=== PATIENT | male | born 1960 | race Caucasian/White ===

== ENCOUNTER 2016-10-24 11:17 | Inpatient (IN) | payer OTHER ==
[~2016-10-24] VITALS: Ht 180.3 cm; Wt 104.5 kg
[2016-10-24 12:00] VITALS: BP 130/71
[2016-10-24] MEDS ORDERED: 1/2 NS IV SOLUTION 1,000 ML IV PRN (12:19)
[2016-10-24] MEDS ORDERED: ONDANSETRON 4 MG/2 ML (SDV) Z0FRAN IV PRN (12:30)
[2016-10-24] MEDS ORDERED: D5 1/2 NS 1000 ML IV SOLUTION 1,000 ML IV PRN (12:30)
[2016-10-24] MEDS ORDERED: ANTACID SUSP 30 ML UDC (MYLANTA) PO PRN (12:30)
[2016-10-24] MEDS ORDERED: LORazepam INJ 2 MG/ML (ATIVAN) VIAL IM/IV PRN (12:30)
[2016-10-24] MEDS ORDERED: LORazepam 1 MG (ATIVAN) TAB PO PRN ×2 (12:30→16:15)
[2016-10-24] MEDS ORDERED: SENNA W/DOCUSATE (SENOKOT S) TABLET PO PRN (12:30)
[2016-10-24] MEDS ORDERED: ONDANSETRON 4 MG (ZOFRAN) ORAL DISSOLVE TAB SL PRN (12:30)
[2016-10-24] MEDS ORDERED: LORazepam INJ 2 MG/ML (ATIVAN) VIAL IV PRN (12:30)
--- NOTE | 2016-10-24 12:41 | History & Physical-Hospitalist ---
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 At this current time patient appears to be slightly intoxicated will check alcohol level to confirm my suspicion but denies any significant pain or any other issues. He reports that he responds to the vitamin IV bag well so I did order that. 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) Surgeries HX Surgeries: No Respiratory Hx Respiratory Disorders: No Cardiovascular Hx Cardiovascular Disorders: No Neurological Hx Neurological Disorders: No Genitourinary Hx Genitourinary Disorders: No Gastrointestinal Hx Gastrointestinal Disorders: No Musculoskeletal Hx Musculoskeletal Disorders: No Endocrine Hx Endocrine Disorders: No HEENT HX ENT Disorders: No Cancer Hx Cancer: No Psychosocial Hx Psychiatric Problems: No Review of Systems Constitutional: see HPI dizziness malaise EENTM: no symptoms reported Respiratory: no symptoms reported Cardiovascular: no symptoms reported Gastrointestinal: no symptoms reported Genitourinary: no symptoms reported Musculoskeletal: no symptoms reported Skin: no symptoms reported Psychiatric/Neurological: No Symptoms Reported All Other Systems Reviewed Negative Unless Noted: Yes Physical Exam Physical Exam Vital Signs Capillary Refill : General Appearance: No Apparent Distress WD/WN Chronically ill Obese Other ( intoxicated, smells of etoh) Eyes: Bilateral Eye Normal Inspection, Bilateral Eye PERRL HEENT: PERRL/EOMI Normal ENT Inspection Pharynx Normal Neck: Full Range of Motion Normal Inspection Non Tender Supple Carotid Bruit Respiratory: Chest Non Tender Lungs Clear Normal Breath Sounds No Accessory Muscle Use No Respiratory Distress Cardiovascular: Regular Rate, Rhythm No Edema No Gallop No JVD No Murmur Normal Peripheral Pulses Gastrointestinal: Normal Bowel Sounds No Organomegaly No Pulsatile Mass Non Tender Soft Back: Normal Inspection No CVA Tenderness No Vertebral Tenderness Extremity: Normal Capillary Refill Normal Inspection Normal Range of Motion Non Tender No Calf Tenderness No Pedal Edema Neurologic/Psychiatric: Alert Oriented x3 No Motor/Sensory Deficits Normal Mood/Affect Skin: Normal Color Warm/Dry Lymphatic: No Adenopathy Assessment/Plan Admission Diagnosis Assessment: Alcohol detoxification with withdrawal likely in future Assessment and Plan follow detox protocol Disposition early in the week that is very been set up by social science teacher DANETTE BUNN DO Oct 24, 2016 12:41
[2016-10-24] MEDS ORDERED: THIAMINE INJECTION 100 MG, FOLIC ACID INJECTION 1 MG, VITAMIN MULTI INJECTION 10 ML, MA... IV NR ×5 (12:42)
[2016-10-24] MEDS ORDERED: LISI10TA2 PO (13:06)
[2016-10-24 13:20] LABS: INR 1.2 (0.8-1.4); PROTHROMBIN TIME PATIENT 15.1 SEC (12.2-14.7)
[2016-10-24 13:26] LABS: ALANINE AMINOTRANSFERASE 48 U/L (0-55); ALBUMIN 4.6 G/DL (3.2-4.5); ALCOHOL 279 MG/DL (<10); ANION GAP 16 MMOL/L (5-14); ASPARTATE AMINO TRANSFERASE 58 U/L (5-34); BILIRUBIN,TOTAL 1.1 MG/DL (0.1-1.0); BLOOD UREA NITROGEN 15 MG/DL (7-18); BUN/CREATININE RATIO 18; CALCIUM 8.9 MG/DL (8.5-10.1); CARBON DIOXIDE 18 MMOL/L (21-32); CHLORIDE 102 MMOL/L (98-107); CREATININE SERUM 0.83 MG/DL (0.60-1.30); GFR ESTIMATED > 60; GLUCOSE 95 MG/DL (70-105); POTASSIUM 3.8 MMOL/L (3.6-5.0); SODIUM 136 MMOL/L (135-145); TOTAL PROTEIN 7.2 G/DL (6.4-8.2)
[2016-10-24] MEDS ORDERED: ASPI-983 PO (13:36)
[2016-10-24] MEDS ORDERED: METO-333 PO (13:36)
[2016-10-24] MEDS ORDERED: MAGNESIUM OXIDE (MAG-OX)400 MG TAB PO SCH (21:00)
[2016-10-25] MEDS ORDERED: MULTIVIT W/MINERALS TAB (THERAGRAN M) PO SCH (07:00)
[2016-10-25] MEDS ORDERED: THIAMINE 100 MG (VITAMIN B-1) TAB PO SCH (07:00)
[2016-10-25] MEDS ORDERED: FOLIC ACID 1 MG TAB PO SCH (09:00)
--- NOTE | 2016-10-28 09:40 | Physician Query-Final Dx ---
SERGE COOLEY 10/28/16 0940: Final Diagnosis Give Final Diagnosis Please give Final Diagnosis URIAH HAMILTON DO 10/28/16 1804: Final Diagnosis Give Final Diagnosis Acute alcohol withdrawal SERGE COOLEY Oct 28, 2016 09:40 URIAH HAMILTON DO Oct 28, 2016 18:04
== END 2016-10-24 17:51 | disposition left against medical advice (07) | DRG 894 ==
LOC: 4TH 12:00
PROVIDERS: ADMIT Internal Medicine; ATTEND Internal Medicine
DX: F10.220 Alcohol dependence with intoxication, uncomplicated (principal)
CPT/HCPCS: 36415; 80053; 80320; 85610; 85730; 93005

== ENCOUNTER 2019-02-07 15:08 | Observation (INO) | payer OTHER ==
[~2019-02-07] VITALS: Ht 180.3 cm; Wt 99.8 kg
[~2019-02-07 15:08] MED LIST: ASPI-983 PO; LISI10TA2 PO; METO-333 PO
--- NOTE | 2019-02-07 15:09 | NUR ---
PT TO ED [facility]. PT SMELLS OF ETOH. PT CONVERSATION STRAYS FROM THE CURRENT QUESTIONS AND ASSESSMENTS. WILL LOOK TO GET Impraise RECORDS.
--- NOTE | 2019-02-07 15:23 | NUR ---
PT UP OUT OF BED IN ROOM. PT IS UNSTEADY ON FEET AND GUIDED BACK INTO ROOM AND BACK TO BED WITH RAILS REMAINING UP X 2. PT RE-INSTRUCTED TO NOT GET OUT OF BED WITHOUT ASSIST.
[2019-02-07] MEDS ORDERED: THIAMINE 100 MG/ML 2 ML (VITAMIN B-1) VIAL IV ONE (15:30)
[2019-02-07] MEDS ORDERED: LACTATED RINGERS 1,000 ML IV SCH ×2 (15:30→17:30)
--- NOTE | 2019-02-07 15:35 | NUR ---
IV STARTED 20 GA TO RIGHT FA. LABS DRAWN.
[2019-02-07 15:53] LABS: EOSINOPHILS % (AUTO) 1 % (0-10); HEMATOCRIT 44 % (40-54); HEMOGLOBIN 15.1 G/DL (13.3-17.7); MEAN CORPUSCULAR HEMOGLOBIN 31 PG (25-34); MEAN CORPUSCULAR HGB CONC 34 G/DL (32-36); MEAN CORPUSCULAR VOLUME 91 FL (80-99); MEAN PLATELET VOLUME 9.8 FL (7.4-10.4); MONOCYTES % (AUTO) 7 % (0-12); PLATELET COUNT 101 10^3/uL (130-400); RED CELL DISTRIBUTION WIDTH 15.8 % (10.0-14.5); WHITE BLOOD COUNT 7.2 10^3/uL (4.3-11.0)
[2019-02-07 15:54] LABS: BASOPHILS # (AUTO) 0.2 10^3/uL (0.0-0.1); BASOPHILS % (AUTO) 3 % (0-10); EOSINOPHILS # (AUTO) 0.1 10^3/uL (0.0-0.3); LYMPHOCYTES # (AUTO) 2.3 X 10^3 (1.0-4.0); LYMPHOCYTES % (AUTO) 32 % (12-44); MONOCYTES # (AUTO) 0.5 X 10^3 (0.0-1.0); NEUTROPHILS # (AUTO) 4.2 X 10^3 (1.8-7.8); NEUTROPHILS % (AUTO) 57 % (42-75)
[2019-02-07 16:07] LABS: ALANINE AMINOTRANSFERASE 110 U/L (0-55); ALKALINE PHOSPHATASE 79 U/L (40-136); BILIRUBIN,TOTAL 1.2 MG/DL (0.1-1.0); BUN/CREATININE RATIO 15; CALCIUM 8.6 MG/DL (8.5-10.1); CARBON DIOXIDE 23 MMOL/L (21-32); CHLORIDE 92 MMOL/L (98-107); CREATININE SERUM 0.81 MG/DL (0.60-1.30); GFR ESTIMATED > 60; GLUCOSE 113 MG/DL (70-105); MAGNESIUM 1.9 MG/DL (1.8-2.4); POTASSIUM 4.2 MMOL/L (3.6-5.0); SODIUM 138 MMOL/L (135-145)
[2019-02-07 16:08] LABS: ALBUMIN 4.9 GM/DL (3.2-4.5); LIPASE 81 U/L (8-78); TOTAL PROTEIN 7.4 GM/DL (6.4-8.2)
--- NOTE | 2019-02-07 17:15 | NUR ---
PT UP COMING OUT OF ROOM. PT HAS CRAWLED OUT OF FOOT OF BED. PT GUIDED BACK INTO ROOM AND BACK INTO BED. PT HAS IV REMAINING PATENT.
--- NOTE | 2019-02-07 17:30 | NUR ---
PT GIVES RANDOM HX AT TIMES. PT REPORTS BEING UNHEALTHY AND NOT TAKING CARE OF SELF. PT STATES NOT DRINKING WATER BUT ALCOHOL. PT ALSO STATES NOT SLEPT IN 3 WEEKS. PT STATES HIS BROOKE IN [place] TOLD HIM TO TAKE OTC MEDS TO SLEEP, "THINK IT IS AN ALLERGY MED I BUY AND TAKE EVERY NIGHT."
[2019-02-07 17:39] LABS: BILIRUBIN,URINE NEGATIVE (NEGATIVE); CLARITY,URINE CLEAR; COLOR,URINE YELLOW; GLUCOSE, URINE (UA) NEGATIVE (NEGATIVE); KETONES,URINE 1+ (NEGATIVE); NITRITE,URINE NEGATIVE (NEGATIVE); PROTEIN,URINE NEGATIVE (NEGATIVE)
[2019-02-07 17:40] LABS: BACTERIA,URINE NEGATIVE /HPF; LEUKOCYTE ESTERASE ,URINE NEGATIVE (NEGATIVE); SQUAMOUS EPITHELIAL CELL,UR 0-2 /HPF; UROBILINOGEN,URINE 0.2 MG/DL (NORMAL); WBC,URINE 0-2 /HPF
[2019-02-07 17:42] LABS: AMPHETAMINE SCREEN, URINE NEGATIVE (NEGATIVE); BARBITURATE SCREEN URINE NEGATIVE (NEGATIVE); BENZODIAZEPINES SCREEN URINE NEGATIVE (NEGATIVE); CANNABINOID SCREEN, URINE NEGATIVE (NEGATIVE); COCAINE SCREEN URINE NEGATIVE (NEGATIVE); METHADONE STAT NEGATIVE (NEGATIVE); METHAMPHETAMINE SCREEN URINE S NEGATIVE (NEGATIVE); OPIATE SCREEN URINE NEGATIVE (NEGATIVE); OXYCODONE STAT NEGATIVE (NEGATIVE); PROPOXYPHENE STAT NEGATIVE (NEGATIVE); TRICYCLIC ANTIDEPRESSANTS SCRE NEGATIVE (NEGATIVE)
--- NOTE | 2019-02-07 17:44 | ED Neurological Problem ---
General Chief Complaint: Abdominal/GI Problems Stated Complaint: LLQ Nursing Triage Note: [facility] PT BROUGHT TO ED FOR ABD PAIN IN RLQ. INCIDENTALLY NOTE PT IS VERY INEBRIATED. PT TRANSFERRED TO COT AND RAILS RAISED, PT IN RM ER04 NEAR NURSES DESK. Nursing Sepsis Screen: No Definite Risk Source: patient, EMS, RN notes reviewed Exam Limitations: intoxication History of Present Illness Date Seen by Provider: Feb 07, 2019 Time Seen by Provider: 15:20 Associated Symptoms: other (abdominal pain ) Allergies and Home Medications Allergies Coded Allergies: No Known Drug Allergies (Unverified , 02/07/19) Home Medications Aspirin 81 Mg Tablet.dr, 81 MG PO DAILY, (Reported) Lisinopril 10 Mg Tablet, 10 MG PO HS, (Reported) Metoprolol Tartrate 25 Mg Tablet, 12.5 MG PO BID, (Reported) LAST FILLED #March Past Nkfhlqs-Hcyyax-Mnmkdn Hx Patient Social History Alcohol Use: Regular Use Number of Drinks Today: FF Alcohol Beverage of Choice: Vodka Recreational Drug Use: No Smoking Status: Never a Smoker 2nd Hand Smoke Exposure: No Recent Foreign Travel: No Contact w/Someone Who Travel: No Recent Infectious Disease Expo: No Recent Hopitalizations: Yes Physical Abuse: No Sexual Abuse: No Mistreated: No Fear: No Immunizations Up To Date Tetanus Booster (TDap): Unknown PED Vaccines UTD: No Seasonal Allergies Seasonal Allergies: No Past Medical History Respiratory: No Currently Using CPAP: No Currently Using BIPAP: No Neurological: No Sexually Transmitted Disease: No HIV/AIDS: No Genitourinary: No Musculoskeletal: No Endocrine: No HEENT: No Loss of Vision: Denies Hearing Impairment: Denies Cancer: No Did You Recieve Any Treatments: No Psychosocial: Yes Anxiety, PTSD, Depression Integumentary: No Blood Disorders: No Adverse Reaction/Blood Tranf: No Physical Exam Vital Signs Vital Signs - First Documented 02/07/19 15:09 Temp 98.1 Pulse 104 Resp 20 B/P (MAP) 138/73 (94) Pulse Ox 94 O2 Delivery Room Air Capillary Refill : Less Than 3 Seconds Height, Weight, BMI Height: 5'11.00" Weight: 225lbs. 5.0oz. 102.600606ni; 32.1 BMI Method:Stated Progress/Results/Core Measures Results/Orders Lab Results Laboratory Tests Test 02/07/19 15:35 02/07/19 17:15 Range/Units White Blood Count 7.2 4.3-11.0 10^3/uL Red Blood Count 4.82 4.35-5.85 10^6/uL Hemoglobin 15.1 13.3-17.7 G/DL Hematocrit 44 40-54 % Mean Corpuscular Volume 91 80-99 FL Mean Corpuscular Hemoglobin 31 25-34 PG Mean Corpuscular Hemoglobin Concent 34 32-36 G/DL Red Cell Distribution Width 15.8 H 10.0-14.5 % Platelet Count 101 L 130-400 10^3/uL Mean Platelet Volume 9.8 7.4-10.4 FL Neutrophils (%) (Auto) 57 42-75 % Lymphocytes (%) (Auto) 32 12-44 % Monocytes (%) (Auto) 7 0-12 % Eosinophils (%) (Auto) 1 0-10 % Basophils (%) (Auto) 3 0-10 % Neutrophils # (Auto) 4.2 1.8-7.8 X 10^3 Lymphocytes # (Auto) 2.3 1.0-4.0 X 10^3 Monocytes # (Auto) 0.5 0.0-1.0 X 10^3 Eosinophils # (Auto) 0.1 0.0-0.3 10^3/uL Basophils # (Auto) 0.2 H 0.0-0.1 10^3/uL Sodium Level 138 135-145 MMOL/L Potassium Level 4.2 3.6-5.0 MMOL/L Chloride Level 92 L 98-107 MMOL/L Carbon Dioxide Level 23 21-32 MMOL/L Anion Gap 23 H 5-14 MMOL/L Blood Urea Nitrogen 12 7-18 MG/DL Creatinine 0.81 0.60-1.30 MG/DL Estimat Glomerular Filtration Rate > 60 BUN/Creatinine Ratio 15 Glucose Level 113 H 70-105 MG/DL Calcium Level 8.6 8.5-10.1 MG/DL Corrected Calcium 8.5-10.1 MG/DL Magnesium Level 1.9 1.8-2.4 MG/DL Total Bilirubin 1.2 H 0.1-1.0 MG/DL Aspartate Amino Transf (AST/SGOT) 157 H 5-34 U/L Alanine Aminotransferase (ALT/SGPT) 110 H 0-55 U/L Alkaline Phosphatase 79 40-136 U/L Total Protein 7.4 6.4-8.2 GM/DL Albumin 4.9 H 3.2-4.5 GM/DL Lipase 81 H 8-78 U/L Serum Alcohol 424 *H <10 MG/DL My Orders Orders - NATASHA BYERS DO Ed Iv/Invasive Line Start (02/07/19 15:30) Alcohol (02/07/19 15:30) Cbc With Automated Diff (02/07/19 15:30) Comprehensive Metabolic Panel (02/07/19 15:30) Drug Screen Stat (Urine) (02/07/19 15:30) Lipase (02/07/19 15:30) Magnesium (02/07/19 15:30) Ua Culture If Indicated (02/07/19 15:30) Thiamine Injection (Vitamin B-1 Injectio (02/07/19 15:30) Lactated Ringers (Lr 1000 Ml Iv Solution (02/07/19 15:30) Ct Abdomen/Pelvis W (02/07/19 16:47) Lactated Ringers (Lr 1000 Ml Iv Solution (02/07/19 17:30) Iohexol Injection (Omnipaque 350 Mg/Ml 1 (02/07/19 17:45) Received Contrast (Hold Metformin- Contr (02/07/19 17:45) Sodium Chloride Flush (Catheter Flush Sy (02/07/19 17:45) Ns (Ivpb) (Sodium Chloride 0.9% Ivpb Bag (02/07/19 17:45) Medications Given in ED Current Medications Medications Dose Ordered Sig/Regino Route Start Time Stop Time Status Last Admin Dose Admin Thiamine HCl 100 mg ONCE ONCE IV 02/07/19 15:30 02/07/19 15:34 DC 02/07/19 15:46 100 MG Vital Signs/I&O 02/07/19 15:09 Temp 98.1 Pulse 104 Resp 20 B/P (MAP) 138/73 (94) Pulse Ox 94 O2 Delivery Room Air Blood Pressure Mean: 94 Departure Impression Primary Impression: Alcohol intoxication in active alcoholic Additional Impression: Abdominal pain Disposition: 02 XFER SHT-TRM HOSP Condition: Stable Transfer Time Spoke to Accepting Phy: 17:00 Transfer Progress Notes Spoke c/ Dr. Gupta who has accepted the patient in transfer. Transfer Facility: [facility] Method of Transfer: EMS Departure-Patient Inst. Referrals: NO,LOCAL PHYSICIAN (PCP) Primary Care Physician NATASHA BYERS DO Feb 07, 2019 17:44
[2019-02-07] MEDS ORDERED: NS 100 ML (IVPB) BAG IV ONE (17:45)
[2019-02-07] MEDS ORDERED: HOLD METFORMIN - RECEIVED CONTRAST 20 ML VIAL IV SCH (17:45)
[2019-02-07] MEDS ORDERED: IOHEXOL 350 MG/ML 100 ML (OMNIPAQUE 350) VIAL IV ONE (17:45)
[2019-02-07] MEDS: CATHETER FLUSH 10 ML SYR IV PRN ×2 (17:51→23:59)
[2019-02-07] MEDS ORDERED: LORazepam INJ 2 MG/ML (ATIVAN) VIAL IVP ONE (18:00)
--- NOTE | 2019-02-07 18:16 | Diagnostic Imaging Report ---
PROCEDURE: CT abdomen and pelvis with contrast. TECHNIQUE: Multiple contiguous axial images were obtained through the abdomen and pelvis after administration of intravenous contrast. Auto Exposure Controls were utilized during the CT exam to meet ALARA standards for radiation dose reduction. INDICATION: Left lower quadrant pain. No prior studies are available for comparison. The lung bases are clear. The liver demonstrates diffuse low density consistent with hepatic steatosis. No discrete liver mass is identified. No biliary ductal dilatation is identified. The pancreas and spleen are unremarkable. No adrenal mass is identified. Kidneys are unremarkable. Aorta is non-aneurysmal. There is moderate distention of the urinary bladder which extends into the lower abdomen. The small and large bowel loops are normal caliber. There is no evidence of obstruction. The appendix is visualized in the right lower quadrant and is unremarkable. No inflammatory changes in the abdomen or pelvis are identified. There appear to be fat containing inguinal hernias bilaterally. No definite abdominal or pelvic lymphadenopathy is seen. Evaluation of the bony structures does show spondylolisthesis of L5 on S1 with bilateral pars defects. IMPRESSION: 1. Hepatic steatosis. 2. Moderate bladder distention. 3. Bilateral fat-containing inguinal hernias. 4. No other significant abnormality in the abdomen or pelvis is identified. Dictated by: Dictated on workstation # [id number]
--- NOTE | 2019-02-07 18:40 | NUR ---
REPORT TO BHUPINDER RAVI IN ICU [place]. PENDING TRANSFER OF THIS PT AFTER ANOTHER PT IN ER [place] [facility] TO [facility].
[2019-02-07] MEDS ORDERED: NS IV 1000 ML 1,000 ML IV ONE (18:53)
[2019-02-07] MEDS: NS IV 1000 ML 1,000 ML IV SCH ×2 (19:00→23:59)
--- NOTE | 2019-02-07 19:05 | NUR ---
REPORT TO REN RAVI.
[2019-02-07] MEDS ORDERED: LORazepam INJ 2 MG/ML (ATIVAN) VIAL ONE (20:32)
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
[2019-02-07 23:41] VITALS: BP 148/85
[2019-02-08] VITALS (16 sets, daily range): BP systolic 126–183; BP diastolic 61–105
--- NOTE | 2019-02-08 00:10 | NUR ---
This sba underwriter asked patient how much alcohol he has had to drink today, the patient reports that "he has only had one shot glass of alcohol." Pt states that he is being honest. Patient is expressing feelings of loneliness, abandonment and helplessness. Patient stated that he has not been able to eat and when he does he can't keep it down. Patient stated that he can drive but admits that he has neighbors get his groceries for him and he gives them gas money, but stated that they have not been coming buy lately. Patient is very talkative and open with this sba underwriter. He tells me that he is not close to his sister and brother in law and expressed anger about this. Stating "I've helped them so many times in the past." He tells this sba underwriter that they are not willing to help him at this time but did proceed to list them as his emergency contacts. He does not know their phone numbers but one for his sister did recall. Patient stated that a couple of weeks ago his "tablet" broke and his life has been going down hill since. He has been unable to video communicate with his daughters who are [place] and he feels like his whole life is falling apart.
[2019-02-08] MEDS ORDERED: 1/2 NS IV SOLUTION 1,000 ML IV PRN (00:17)
[2019-02-08] MEDS: THIAMINE INJECTION 100 MG, FOLIC ACID INJECTION 1 MG, MAGNESIUM SULFATE 2 GM, VITAMIN M... IV SCH ×10 (00:29→08:15)
[2019-02-08] MEDS ORDERED: LORazepam INJ 2 MG/ML (ATIVAN) VIAL IV PRN (00:30)
[2019-02-08] MEDS ORDERED: SENNA W/DOCUSATE (SENOKOT S) TABLET PO PRN (00:30)
[2019-02-08] MEDS ORDERED: D5 1/2 NS 1000 ML IV SOLUTION 1,000 ML IV PRN (00:30)
[2019-02-08] MEDS ORDERED: LORazepam INJ 2 MG/ML (ATIVAN) VIAL IM/IV PRN (00:30)
[2019-02-08] MEDS ORDERED: ONDANSETRON 4 MG/2 ML (SDV) Z0FRAN IV PRN (00:30)
[2019-02-08] MEDS ORDERED: ANTACID SUSP 30 ML UDC (MYLANTA) PO PRN (00:30)
[2019-02-08] MEDS ORDERED: ONDANSETRON 4 MG (ZOFRAN) ORAL DISSOLVE TAB SL PRN (00:30)
[2019-02-08] MEDS: NS IV 1000 ML 1,000 ML IV SCH ×2 (02:46→10:37)
--- NOTE | 2019-02-08 03:56 | NUR ---
Patient now reports that he drinks a liter of vodka on average three days a week.
[2019-02-08 04:31] LABS: BUN/CREATININE RATIO 9; CALCIUM 8.6 MG/DL (8.5-10.1); CARBON DIOXIDE 21 MMOL/L (21-32); CHLORIDE 102 MMOL/L (98-107); CREATININE SERUM 0.74 MG/DL (0.60-1.30); GFR ESTIMATED > 60; GLUCOSE 74 MG/DL (70-105); MAGNESIUM 1.9 MG/DL (1.8-2.4); PHOSPHORUS 2.8 MG/DL (2.3-4.7); POTASSIUM 3.6 MMOL/L (3.6-5.0); SODIUM 140 MMOL/L (135-145)
--- NOTE | 2019-02-08 04:58 | Pulmonary Consultation ---
History of Present Illness History of Present Illness Date of Consultation 02/08/19 04:53 Time Seen by Provider: 04:53 Date of Admission History of Present Illness 58yo with hx of diverticulitis presented to ED secondary to right abdominal pain. No nausea/vomiting . ETOH was found to be 424. Allergies and Home Medications Allergies Coded Allergies: No Known Drug Allergies (Unverified , 02/07/19) Home Medications Aspirin 81 Mg Tablet.dr, 81 MG PO DAILY, (Reported) Lisinopril 10 Mg Tablet, 10 MG PO HS, (Reported) Metoprolol Tartrate 25 Mg Tablet, 12.5 MG PO BID, (Reported) LAST FILLED #March Past Ivwfdaa-Cemugb-Pdcmpb Hx Patient Social History Alcohol Use: Regular Use Number of Drinks Today: FF Alcohol Beverage of Choice: Vodka Recreational Drug Use: No Smoking Status: Never a Smoker 2nd Hand Smoke Exposure: No Recent Foreign Travel: No Contact w/Someone Who Travel: No Recent Infectious Disease Expo: No Recent Hopitalizations: Yes Physical Abuse: No Sexual Abuse: No Mistreated: No Fear: No Immunizations Up To Date Tetanus Booster (TDap): Unknown PED Vaccines UTD: No Seasonal Allergies Seasonal Allergies: No Past Medical History Respiratory: No Currently Using CPAP: No Currently Using BIPAP: No Neurological: No Sexually Transmitted Disease: No HIV/AIDS: No Genitourinary: No Musculoskeletal: No Endocrine: No HEENT: No Loss of Vision: Denies Hearing Impairment: Denies Cancer: No Did You Recieve Any Treatments: No Psychosocial: Yes Anxiety, PTSD, Depression Integumentary: No Blood Disorders: No Adverse Reaction/Blood Tranf: No Sepsis Event Evaluation Height, Weight, BMI Height: 5'11.00" Weight: 220lbs. 0.0oz. 99.394569nx; 30.7 BMI Method:Stated Exam Exam Vital Signs Date Time Temp Pulse Resp B/P (MAP) Pulse Ox O2 Delivery O2 Flow Rate FiO2 02/08/19 04:00 89 15 174/61 (98) 96 Nasal Cannula 2.00 02/08/19 03:30 98.2 02/08/19 03:30 97 Nasal Cannula 2.00 02/08/19 03:00 89 16 151/92 (111) 97 Nasal Cannula 2.00 02/08/19 02:00 87 16 148/87 (107) 96 Nasal Cannula 2.00 02/08/19 01:30 87 15 145/91 (109) 94 Nasal Cannula 2.00 02/08/19 01:15 89 16 139/92 (108) 96 Nasal Cannula 2.00 02/08/19 01:00 84 17 148/87 (107) 96 Nasal Cannula 2.00 02/08/19 01:00 84 02/08/19 00:45 82 21 144/86 (105) 96 Nasal Cannula 2.00 02/08/19 00:30 91 16 157/89 (111) 94 Nasal Cannula 2.00 02/08/19 00:15 93 29 147/84 (105) 98 Nasal Cannula 2.00 02/08/19 00:00 84 17 148/87 (107) 96 Nasal Cannula 2.00 02/08/19 00:00 99 Nasal Cannula 2.00 02/07/19 23:41 98.1 89 11 148/85 (106) 99 Nasal Cannula 2.00 02/07/19 23:40 90 02/07/19 22:31 98.2 92 14 126/74 (91) 96 Nasal Cannula 2.00 02/07/19 21:52 96 Nasal Cannula 2.00 02/07/19 21:48 88 Room Air 02/07/19 15:09 98.1 104 20 138/73 (94) 94 Room Air I & O 02/08/19 07:00 Intake Total 6120 ml Balance 6120 ml Height & Weight Height: 5'11.00" Weight: 220lbs. 0.0oz. 99.870913aq; 30.7 BMI Method:Stated Capillary Refill: Less Than 3 Seconds Results Lab Laboratory Tests 02/07/19 15:35 02/08/19 03:50 Assessment/Plan Assessment/Plan Abdominal pain -US of [facility] today Alcohol dependance - monitor for withdrawal Thrombocytopenia- secondary to alcohol -check peripheral smear, pt, ptt, INR -monitor SYLVAIN PARDO DO Feb 08, 2019 04:58
[2019-02-08 05:21] LABS: ABSOLUTE RETIC # 42 10e9/L (24-90); BASOPHILS # (AUTO) 0.1 10^3/uL (0.0-0.1); BASOPHILS % (AUTO) 1 % (0-10); EOSINOPHILS # (AUTO) 0.1 10^3/uL (0.0-0.3); EOSINOPHILS % (AUTO) 3 % (0-10); HEMATOCRIT 40 % (40-54); HEMOGLOBIN 13.2 G/DL (13.3-17.7); LYMPHOCYTES # (AUTO) 2.1 X 10^3 (1.0-4.0); LYMPHOCYTES % (AUTO) 51 % (12-44); MEAN CORPUSCULAR HEMOGLOBIN 31 PG (25-34); MEAN CORPUSCULAR HGB CONC 33 G/DL (32-36); MEAN CORPUSCULAR VOLUME 91 FL (80-99); MONOCYTES # (AUTO) 0.4 X 10^3 (0.0-1.0); MONOCYTES % (AUTO) 9 % (0-12); NEUTROPHILS # (AUTO) 1.5 X 10^3 (1.8-7.8); NEUTROPHILS % (AUTO) 37 % (42-75); PLATELET COUNT 66 10^3/uL (130-400); RED CELL DISTRIBUTION WIDTH 16.3 % (10.0-14.5); RETICULOCYTE % 0.96 % (0.50-2.40); WHITE BLOOD COUNT 4.2 10^3/uL (4.3-11.0)
[2019-02-08 05:28] LABS: INR 1.2 (0.8-1.4); PROTHROMBIN TIME PATIENT 15.6 SEC (12.2-14.7)
[2019-02-08 05:51] LABS: ANISOCYTOSIS SLIGHT; BAND NEUTROPHILS 2 %; BASOPHILS % (MANUAL) 1 %; EOSINOPHILS % (MANUAL) 2 %; LYMPHOCYTES % (MANUAL) 41 %; MONOCYTES % (MANUAL) 5 %; NEUTROPHILS % (MANUAL) 43 %; REACTIVE LYMPHOCYTES 6 %; SMUDGE CELLS SLIGHT
[2019-02-08] MEDS ORDERED: POTASSIUM CL 10MEQ/50ML IVPB 50 ML IV SCH (06:00)
[2019-02-08] MEDS ORDERED: MAGNESIUM 1 GM/100 ML IVPB 100 ML IV SCH (06:00)
[2019-02-08] MEDS ORDERED: KCL 20 MEQ TAB (K-DUR) PO SCH (06:00)
--- NOTE | 2019-02-08 08:13 | Diagnostic Imaging Report ---
INDICATION: Alcohol intoxication, abdominal pain. TECHNIQUE: Frontal view of the chest. COMPARISON: None FINDINGS: The lung volumes are normal. No focal consolidation is seen. No large pleural effusion or pneumothorax is seen. The cardiomediastinal silhouette is normal in size and contour. No acute osseous abnormality is seen. IMPRESSION: No acute pulmonary abnormality seen. Dictated by: Dictated on workstation # [id number]
[2019-02-08] MEDS ORDERED: KCL 20 MEQ TAB (K-DUR) PO ONE (09:00)
[2019-02-08] MEDS: LORazepam 1 MG (ATIVAN) TAB PO PRN ×2 (09:25→12:16)
--- NOTE | 2019-02-08 10:19 | Diagnostic Imaging Report ---
PROCEDURE: US abdomen complete. TECHNIQUE: Multiple real-time grayscale images were obtained over the abdomen in various projections. INDICATION: Right upper quadrant pain and increased bilirubin FINDINGS: Liver measures 20 cm. There is increased echogenicity of the liver compatible with fatty infiltration. There is some gallbladder sludge. There is no cholelithiasis, gallbladder wall thickening or pericholecystic fluid. There is no intrahepatic biliary ductal dilatation. Common bile duct measures 6 mm. Pancreas is largely obscured by bowel gas. Spleen measures up to 15 cm. Visualized aorta is nonaneurysmal. IVC is patent. Both kidneys normal. There is no ascites. IMPRESSION: Gallbladder sludge. Hepatosplenomegaly with some fatty infiltration of the liver. Dictated by: Dictated on workstation # [id number]
[2019-02-08] MEDS ORDERED: LORA0.5T PO (10:51)
[2019-02-08] MEDS ORDERED: CALC500T7 PO (10:51)
--- NOTE | 2019-02-08 10:51 | NUR ---
SPOKE WITH THE PATIENT ABOUT HIS MEDICATIONS. HE LISTED WHAT HE IS TAKING AND I VERIFIED WITH [facility]. ARABELLA HOWARD FILLED: 01-04-19 METOPROLOL TARTRATE 25MG 1/2 BID #90 10-29-18 LISINOPRIL 10MG DAILY #90 10-29-18 LORAZEPAM 0.5MG DAILY PRN #20 HE STATES HE TAKES ASPIRIN 81MG DAILY OTC NEEDED WHEN HE IS "FEELING FUNNY" OR HAS CHEST DISCOMFORT. HE ALSO STATES HE HAS BEEN TAKING TUMS PRN OTC.
--- NOTE | 2019-02-08 11:58 | NUR ---
CM/SS spoke with the patient at his request to speak with SS. Patient states that he has not been eating well, he feels due to feeling constipated. Attempted to discuss alcohol intake and that he came in under the influence, he stated "that's what they told me". When asked how much/how often he drinks he stated that he had not drank "much" yesterday and that it all depends on the day as to how much he drinks. Patient denied that he had been in any alcohol/drug treatment previously and that he had through about it and going through the [facility] in [place]. Patient wanted to see if social science manager at the hospital would be familiar with a previous social science manager here and be able to contact a Ubaldo Gonzalez. Reached out to Neel with [facility] and he will attempt to contact Ubaldo Gonzalez and then speak with the patient.
--- NOTE | 2019-02-08 14:03 | History & Physical-Hospitalist ---
History of Present Illness HPI/Chief Complaint The patient is a 58-year-old white male who was admitted after he presented at the [facility] emergency room in [place]. He had presented there with complaints of right lateral abdominal pain and was clearly intoxicated. This is a pattern which had been seen before. CT scan of the abdomen showed no acute pathology but was consistent with steatosis in the liver. No evidence of pancreatitis or ascites was reported. His blood alcohol was 424. Today he is apparently depressed mentally. He reports this is been a long time drinking problem. He has never sought professional health for this. He has considered the [facility] in [place] but states that he does not have 28 days to give to an inpatient therapy. He was informed that the steatosis reported is a serious sign but potentially reversible. It is therefore crucial that he began effort to achieve sobriety. Date Seen 02/08/19 Time Seen by a Provider: 14:01 Attending Physician Benedict May MD PCP No,Local Physician Referring Physician Date of Admission Feb 07, 2019 at 17:46 Home Medications & Allergies Home Medications Reviewed patient Home Medication Reconciliation performed by pharmacy medication reconciliations copy technician and/or nursing. Patients Allergies have been reviewed. Allergies Allergies Coded Allergies No Known Drug Allergies (Unverified02/07/19) Past Odxdyuv-Pfsyxl-Kdasnu Hx Past Med/Social Hx: Reviewed Nursing Past Med/Soc Hx Patient Social History Alcohol Use: Regular Use Number of Drinks Today: FF Alcohol Beverage of Choice: Vodka Recreational Drug Use: No Smoking Status: Never a Smoker 2nd Hand Smoke Exposure: No Recent Foreign Travel: No Contact w/other who traveled: No Recent Hopitalizations: Yes Recent Infectious Disease Expo: No Immunizations Up To Date Tetanus Booster (TDap): Unknown Pediatric: No Seasonal Allergies Seasonal Allergies: No Past Medical History Currently Using CPAP: No Currently Using BIPAP: No Sexually Transmitted Disease: No HIV/AIDS: No Loss of Vision: Denies Hearing Impairment: Denies Did You Recieve Any Treatments: No Psychosocial: Anxiety, PTSD, Depression History of Blood Disorders: No Adverse Reaction to Blood Mora: No Review of Systems Constitutional: see HPI EENTM: no symptoms reported Respiratory: no symptoms reported Cardiovascular: no symptoms reported Gastrointestinal: abdominal pain (he points to pain at the intersection of the horizontal line at the umbilicus and the mid axillary line.) Genitourinary: no symptoms reported Musculoskeletal: no symptoms reported Psychiatric/Neurological: Other (he reports intermittent numbness of the fourth and fifth fingers on the left.) Physical Exam Physical Exam Vital Signs Vital Signs - First Documented 02/07/19 02/07/19 15:09 21:52 Temp 98.1 Pulse 104 Resp 20 B/P (MAP) 138/73 (94) Pulse Ox 94 O2 Delivery Room Air O2 Flow Rate 2.00 Capillary Refill : Less Than 3 Seconds Height, Weight, BMI Height: 5'11.00" Weight: 220lbs. 0.0oz. [id number]; 30.7 BMI Method:Stated General Appearance: No Apparent Distress, Other (flat affect) HEENT: Normal ENT Inspection Neck: Normal Inspection Respiratory: Chest Non Tender, Lungs Clear, Normal Breath Sounds, No Accessory Muscle Use, No Respiratory Distress Cardiovascular: Regular Rate, Rhythm, No Edema, No Gallop, No JVD, No Murmur, Normal Peripheral Pulses Gastrointestinal: Normal Bowel Sounds, No Organomegaly, No Pulsatile Mass, Non Tender, Soft Back: Normal Inspection, No CVA Tenderness, No Vertebral Tenderness Extremity: Normal Capillary Refill, Normal Inspection, Normal Range of Motion, Non Tender, No Calf Tenderness, No Pedal Edema Neurologic/Psychiatric: Alert, Oriented x3, No Motor/Sensory Deficits, Normal Mood/Affect Skin: Normal Color, Warm/Dry Lymphatic: No Adenopathy Results Results/Procedures Labs Laboratory Tests 02/07/19 15:35 02/08/19 03:50 Patient resulted labs reviewed. Assessment/Plan Admission Diagnosis Acute on chronic alcoholism. 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 Suggestions for outpatient therapy were made. Clinical Quality Measures DVT/VTE Risk/Contraindication: Risk Factor Score Per Nursin RFS Level Per Nursing on Admit: 2=Moderate BENEDICT MAY MD Feb 08, 2019 14:03
--- NOTE | 2019-02-08 14:14 | Discharge Inst-Simple/Standard ---
Discharge Inst-Standard Patient Instructions/Follow Up Plan of Care/Instructions/FU: As we discussed it is essential that you stop alcohol ingestion immediately in order to allow your liver a chance to heal. Suggestions for outpatient treatment have been included. Alcohol represents an addiction and abrupt withdrawal may lead to withdrawal symptoms. Your lorazepam can be used 3 times a day to get you through this Activity as Tolerated: Yes Goal: Lifetime sobriety Discharge Diet: No Restrictions Planned Outpatient Orders/Ref. Pneu Vac Indicated: Yes IRIS MAY MD Feb 08, 2019 14:14
--- NOTE | 2019-02-08 14:23 | NUR ---
[employer] follow up per pt's request. He shared feeling isolated from his family, being and having children overse[place]. Pt has friends and neighbors who help with groceries. He said several friends and family have feared he drinks too much. States he is afraid the doctor will tell him his liver is past healing or function. Pt verbalized feelings of loneliness and regret. He said he a [place] while he was in the [employer]. They were in [place] and later . Pt said that at first arrangements were peaceable and they shared custody. However his eventually filed for full custody, and the pt shared his attempts to maintain relationships with his adult kids. However, their interest in living [place] contributes to the pt's feeling of isolation. Pt expressed concerns with getting a ride home and inquired about a previous cribber, Ubaldo Arriaga, whom he wondered might give him a ride home since they both live in [place]. This cribber messaged Ubaldo and asked if he was still in [place]. In the event he returns my message I will speak with him over the phone about this inquiry. I encouraged the pt to explore other options for transforation, and he mentioned a retired [employer] Mechanic, Johan Del Rio, who may be of help. He did not know how to contact Billiard Table Mechanic Johan. I was able to contact the telecommunications clerk, and he said he both knew the pt and would provide transportation so long as we could coordinate with this care partner job schedule.
--- NOTE | 2019-02-08 15:05 | NUR ---
I contacted pt based on staff referral not aware that other Stitcher Tape Controlled Machine had already visited. Pt shared that Dr had just told him he needed to control/reduce/ stop drinking. Pt shared he me try to deal with stress through medication, I then explored with pt his drinking history and the results of that. I also explored and confirmed his knowledge of switching substances. The pt seemed open to my confrontations and "reality checks" we spoke at length about AA and 12 steps and possibility of inpatient treatments. I shared of my visit with Cindy CELESTE.
--- NOTE | 2019-02-08 15:11 | NUR ---
CM/SS spoke with the patient about treatment options available. He did not want to contact any at this time with SS, he stated [facility], he will call to reschedule appt. [facility] information for [facility] in [place]. Chaplain Valdes was able to make contact with Johan Del Rio ([phone]), he is familiar with the patient and would be able to provide transport this day, a message was left with him.
--- NOTE | 2019-02-08 16:10 | NUR ---
SHANITA CANO demonstrates understanding of discharge instructions and accurately returns instructions upon questioning. Copy of Post-Discharge Instructions given to PT. SHANITA CANO is able to manage continuing needs after discharge. Patients belongings returned to PT. Patient discharged from [facility] on 02/08/19 at 16:10. SHANITA CANO left floor via W/C, accompanied by STAFF AND CULVERT INSTALLER PER AUTO.
[2019-02-09] MEDS ORDERED: PANTOPRAZOLE 40 MG (PROTONIX) TAB PO SCH (07:00)
[2019-02-09 09:50] LABS: HEPATITIS C ANTIBODY C Non-Reactive (Non-Reactive)
== END 2019-02-08 16:10 | disposition home or self-care (01) ==
LOC: EDUNIT# 15:08 → ER FS 15:10 → ICU 17:46 → 4TH 02-08 11:17
PROVIDERS: ADMIT Internal Medicine; ATTEND Internal Medicine
DX: F10.229 Alcohol dependence with intoxication, unspecified (principal); K76.0 Fatty (change of) liver, not elsewhere classified; R10.31 Right lower quadrant pain; D69.6 Thrombocytopenia, unspecified; F32.9 Major depressive disorder, single episode, unspecified; F41.9 Anxiety disorder, unspecified; F43.10 Post-traumatic stress disorder, unspecified; Z79.82 Long term (current) use of aspirin; Z79.899 Other long term (current) drug therapy; Z87.19 Personal history of other diseases of the digestive system; Y90.8 Blood alcohol level of 240 mg/100 ml or more
CPT/HCPCS: 36415; 71045; 74177; 76700; 80048; 80053; 80074; 80306; 80320; 81000; 83690; 83735; 84100; 85007; 85025; 85027; 85045; 85610; 85730; 87081

== ENCOUNTER 2019-05-16 14:30 | Emergency (ER) | payer OTHER ==
[~2019-05-16] VITALS: Ht 182.9 cm; Wt 104.3 kg
[~2019-05-16 14:30] MED LIST changes: +CALC500T7 PO; +LORA0.5T PO
--- OUTSIDE RECORDS SUMMARY | 2019-05-16 14:35 | XMS REPORT | Continuity of Care Document ---
Author Organization Unknown Address Unknown Phone Unavailable Allergies Active Description Code Type Severity Reaction Onset Reported/Identified Relationship to Patient Clinical Status Yes No Allergy Information Available [id number] Drug Allergy Unknown N/A 10/24/2016 Yes No Known Drug Allergies [id number] Drug Allergy Unknown N/A 02/07/2019 Medications There is no data. Problems Date Dx Coded Attending Type Code Diagnosis Diagnosed By 10/24/2016 URIAH HAMILTON DO Ot F10.220 ALCOHOL DEPENDENCE WITH INTOXICATION, UN 02/08/2019 IRIS MAY MD, Ot D69.6 THROMBOCYTOPENIA, UNSPECIFIED 02/08/2019 IRIS MAY MD Ot F10.229 ALCOHOL DEPENDENCE WITH INTOXICATION, UN 02/08/2019 IRIS MAY MD Ot F32.9 MAJOR DEPRESSIVE DISORDER, SINGLE EPISOD 02/08/2019 IRIS MAY MD Ot F41.9 ANXIETY DISORDER, UNSPECIFIED 02/08/2019 IRIS MAY MD Ot F43.10 POST-TRAUMATIC STRESS DISORDER, UNSPECIF 02/08/2019 IRIS MAY MD Ot K76.0 FATTY (CHANGE OF) LIVER, NOT ELSEWHERE C 02/08/2019 IRIS MAY MD Ot R10.31 RIGHT LOWER QUADRANT PAIN 02/08/2019 IRIS MAY MD Ot Y90.8 BLOOD ALCOHOL LEVEL OF 240 MG/100 ML OR 02/08/2019 IRIS MAY MD Ot 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 02/08/2019 IRIS MAY MD, Ot Z79.899 OTHER LAND MANAGER (CURRENT) DRUG THERAPY 02/08/2019 IRIS MAY MD Ot Z87.19 PERSONAL HISTORY OF OTHER DISEASES OF TH 02/18/2019 IRIS MAY MD, Ot D69.6 THROMBOCYTOPENIA, UNSPECIFIED 02/18/2019 IRIS MAY MD Ot F10.229 ALCOHOL DEPENDENCE WITH INTOXICATION, UN 02/18/2019 IRIS MAY MD Ot F32.9 MAJOR DEPRESSIVE DISORDER, SINGLE EPISOD 02/18/2019 IRIS MAY MD Ot F41.9 ANXIETY DISORDER, UNSPECIFIED 02/18/2019 IRIS MAY MD Ot F43.10 POST-TRAUMATIC STRESS DISORDER, UNSPECIF 02/18/2019 IRIS MAY MD Ot K76.0 FATTY (CHANGE OF) LIVER, NOT ELSEWHERE C 02/18/2019 IRIS MAY MD Ot R10.31 RIGHT LOWER QUADRANT PAIN 02/18/2019 IRIS MAY MD Ot Y90.8 BLOOD ALCOHOL LEVEL OF 240 MG/100 ML OR 02/18/2019 IRIS MAY MD Ot Z79.82 [facility] (CURRENT) USE OF ASPIRIN 02/18/2019 IRIS MAY MD Ot Z79.899 OTHER LAND MANAGER (CURRENT) DRUG THERAPY 02/18/2019 IRIS MAY MD Ot Z87.19 PERSONAL HISTORY OF OTHER DISEASES OF 02/18/2019 IRIS MAY MD Ot D69.6 THROMBOCYTOPENIA, UNSPECIFIED 02/18/2019 IRIS MAY MD Ot F10.229 ALCOHOL DEPENDENCE WITH INTOXICATION, UN 02/18/2019 IRIS MAY MD Ot F32.9 MAJOR DEPRESSIVE DISORDER, SINGLE EPISOD 02/18/2019 IRIS MAY MD Ot F41.9 ANXIETY DISORDER, UNSPECIFIED 02/18/2019 IRIS MAY MD Ot F43.10 POST-TRAUMATIC STRESS DISORDER, UNSPECIF 02/18/2019 IRIS MAY MD Ot K76.0 FATTY (CHANGE OF) LIVER, NOT ELSEWHERE C 02/18/2019 IRIS MAY MD Ot R10.31 RIGHT LOWER QUADRANT PAIN 02/18/2019 IRIS MAY MD Ot Y90.8 BLOOD ALCOHOL LEVEL OF 240 MG/100 ML OR 02/18/2019 IRIS MAY MD Ot Z79.82 [facility] (CURRENT) USE OF ASPIRIN 02/18/2019 IRIS MAY MD Ot Z79.899 OTHER [facility] (CURRENT) DRUG THERAPY 02/18/2019 IRIS MAY MD Ot Z87.19 PERSONAL HISTORY OF OTHER DISEASES OF TH 02/18/2019 IRIS MAY MD Ot D69.6 THROMBOCYTOPENIA, UNSPECIFIED 02/18/2019 IRIS MAY MD Ot F10.229 ALCOHOL DEPENDENCE WITH INTOXICATION, UN 02/18/2019 IRIS MAY MD, Ot F32.9 MAJOR DEPRESSIVE DISORDER, SINGLE EPISOD 02/18/2019 IRIS MAY MD, Ot F41.9 ANXIETY DISORDER, UNSPECIFIED 02/18/2019 IRIS MAY MD, Ot F43.10 POST-TRAUMATIC STRESS DISORDER, UNSPECIF 02/18/2019 IRIS MAY MD, Ot K76.0 FATTY (CHANGE OF) LIVER, NOT ELSEWHERE C 02/18/2019 IRIS MAY MD, Ot R10.31 RIGHT LOWER QUADRANT PAIN 02/18/2019 IRIS MAY MD, Ot Y90.8 BLOOD ALCOHOL LEVEL OF 240 MG/100 ML OR 02/18/2019 IRIS MAY MD, Ot 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 Results Test Result Range Comprehensive metabolic panel - 10/24/16 12:54 Serum or plasma sodium measurement (moles/volume) 136 mmol/L 135-145 Serum or plasma potassium measurement (moles/volume) 3.8 mmol/L 3.6-5.0 Serum or plasma chloride measurement (moles/volume) 102 mmol/L 98-107 Carbon dioxide 18 mmol/L 21-32 Serum or plasma anion gap determination (moles/volume) 16 mmol/L 5-14 Serum or plasma urea nitrogen measurement (mass/volume) 15 mg/dL 7-18 Serum or plasma creatinine measurement (mass/volume) 0.83 mg/dL 0.60-1.30 Serum or plasma urea nitrogen/creatinine mass ratio 18 NRG Serum or plasma creatinine measurement with calculation of estimated glomerular filtration rate > NRG Serum or plasma glucose measurement (mass/volume) 95 mg/dL 70-105 Serum or plasma calcium measurement (mass/volume) 8.9 mg/dL 8.5-10.1 Serum or plasma total bilirubin measurement (mass/volume) 1.1 mg/dL 0.1-1.0 Serum or plasma alkaline phosphatase measurement (enzymatic activity/volume) 60 U/L 40-136 Serum or plasma aspartate aminotransferase measurement (enzymatic activity/volume) 58 U/L 5-34 Serum or plasma alanine aminotransferase measurement (enzymatic activity/volume) 48 U/L 0-55 Serum or plasma protein measurement (mass/volume) 7.2 g/dL 6.4-8.2 Serum or plasma albumin measurement (mass/volume) 4.6 g/dL 3.2-4.5 Serum or plasma ethanol measurement (mass/volume) - 10/24/16 12:54 Serum or plasma ethanol measurement (mass/volume) 279 mg/dL <10 PT panel in platelet poor plasma by coagulation assay - 10/24/16 12:54 Prothrombin time (PT) in platelet poor plasma by coagulation assay 15.1 s 12.2-14.7 INR in platelet poor plasma or blood by coagulation assay 1.2 0.8-1.4 Activated partial thromboplastin time (aPTT) in platelet poor plasma bycoagulation assay - 10/24/16 12:54 Activated partial thromboplastin time (aPTT) in platelet poor plasma bycoagulation assay 32 s 24-35 Complete blood count (CBC) with automated white blood cell (WBC) differential - 02/07/19 15:35 Blood leukocytes automated count (number/volume) 7.2 10*3/uL 4.3-11.0 Blood erythrocytes automated count (number/volume) 4.82 10*6/uL 4.35-5.85 Venous blood hemoglobin measurement (mass/volume) 15.1 g/dL 13.3-17.7 Blood hematocrit (volume fraction) 44 % 40-54 Automated erythrocyte mean corpuscular volume 91 [foz_us] 80-99 Automated erythrocyte mean corpuscular hemoglobin (mass per erythrocyte) 31 pg 25-34 Automated erythrocyte mean corpuscular hemoglobin concentration measurement (mass/volume) 34 g/dL 32-36 Automated erythrocyte distribution width ratio 15.8 % 10.0- 14.5 Automated blood platelet count (count/volume) 101 10*3/uL 130-400 Automated blood platelet mean volume measurement 9.8 [foz_us] 7.4-10.4 Automated blood neutrophils/100 leukocytes 57 % 42-75 Automated blood lymphocytes/100 leukocytes 32 % 12-44 Blood monocytes/100 leukocytes 7 % 0-12 Automated blood eosinophils/100 leukocytes 1 % 0-10 Automated blood basophils/100 leukocytes 3 % 0-10 Blood neutrophils automated count (number/volume) 4.2 10*3 1.8-7.8 Blood lymphocytes automated count (number/volume) 2.3 10*3 1.0-4.0 Blood monocytes automated count (number/volume) 0.5 10*3 0.0- 1.0 Automated eosinophil count 0.1 10*3/uL 0.0-0.3 Automated blood basophil count (count/volume) 0.2 10*3/uL 0.0-0.1 Comprehensive metabolic panel - 02/07/19 15:35 Serum or plasma sodium measurement (moles/volume) 138 mmol/L 135-145 Serum or plasma potassium measurement (moles/volume) 4.2 mmol/L 3.6-5.0 Serum or plasma chloride measurement (moles/volume) 92 mmol/L 98-107 Carbon dioxide 23 mmol/L 21-32 Serum or plasma anion gap determination (moles/volume) 23 mmol/L 5-14 Serum or plasma urea nitrogen measurement (mass/volume) 12 mg/dL 7-18 Serum or plasma creatinine measurement (mass/volume) 0.81 mg/dL 0.60-1.30 Serum or plasma urea nitrogen/creatinine mass ratio 15 NRG Serum or plasma creatinine measurement with calculation of estimated glomerular filtration rate > NRG Serum or plasma glucose measurement (mass/volume) 113 mg/dL 70-105 Serum or plasma calcium measurement (mass/volume) 8.6 mg/dL 8.5-10.1 Serum or plasma total bilirubin measurement (mass/volume) 1.2 mg/dL 0.1-1.0 Serum or plasma alkaline phosphatase measurement (enzymatic activity/volume) 79 U/L 40-136 Serum or plasma aspartate aminotransferase measurement (enzymatic activity/volume) 157 U/L 5-34 Serum or plasma alanine aminotransferase measurement (enzymatic activity/volume) 110 U/L 0-55 Serum or plasma protein measurement (mass/volume) 7.4 g/dL 6.4-8.2 Serum or plasma albumin measurement (mass/volume) 4.9 g/dL 3.2-4.5 Magnesium - 02/07/19 15:35 Magnesium 1.9 mg/dL 1.8-2.4 Lipase - 02/07/19 15:35 Lipase 81 U/L 8-78 Serum or plasma ethanol measurement (mass/volume) - 04/29/19 15:35 Serum or plasma ethanol measurement (mass/volume) 424 mg/dL <10 Complete urinalysis with reflex to culture - 02/07/19 17:15 Urine color determination YELLOW NRG Urine clarity determination CLEAR NRG Urine pH measurement by test strip 6.0 5-9 Specific gravity of urine by test strip <= 1.016-1.022 Urine protein assay by test strip, semi-quantitative NEGATIVE NEGATIVE Urine glucose detection by automated test strip NEGATIVE NEGATIVE Erythrocytes detection in urine sediment by light microscopy NEGATIVE NEGATIVE Urine ketones detection by automated test strip 1+ NEGATIVE Urine nitrite detection by test strip NEGATIVE NEGATIVE Urine total bilirubin detection by test strip NEGATIVE NEGATIVE Urine urobilinogen measurement by automated test strip (mass/volume) 0.2 mg/dL NORMAL Urine leukocyte esterase detection by dipstick NEGATIVE NEGATIVE Automated urine sediment erythrocyte count by microscopy (number/high power field) NONE NRG Automated urine sediment leukocyte count by microscopy (number/high power field) [HPF] NRG Bacteria detection in urine sediment by light microscopy NEGATIVE NRG Squamous epithelial cells detection in urine sediment by light microscopy 0-2 NRG Crystals detection in urine sediment by light microscopy NONE NRG Casts detection in urine sediment by light microscopy NONE NRG Mucus detection in urine sediment by light microscopy NEGATIVE NRG Complete urinalysis with reflex to culture NO NRG Urine drug screening test - 02/07/19 17:15 Urine phencyclidine detection by screening method NEGATIVE NEGATIVE Urine benzodiazepines detection by screening method NEGATIVE NEGATIVE Urine cocaine detection NEGATIVE NEGATIVE Urine amphetamines detection by screening method NEGATIVE NEGATIVE Urine methamphetamine detection by screening method NEGATIVE NEGATIVE Urine cannabinoids detection by screening method NEGATIVE NEGATIVE Urine opiates detection by screening method NEGATIVE NEGATIVE Urine barbiturates detection NEGATIVE NEGATIVE Screening urine tricyclic antidepressants detection NEGATIVE NEGATIVE Urine methadone detection by screening method NEGATIVE NEGATIVE Urine oxycodone detection NEGATIVE NEGATIVE Urine propoxyphene detection NEGATIVE NEGATIVE Methicillin resistant Staphylococcus aureus (MRSA) screening culture - 02/07/19 23:53 Methicillin resistant Staphylococcus aureus (MRSA) screening culture NEG NRG Complete blood count (CBC) with automated white blood cell (WBC) differential - 02/08/19 03:50 Blood leukocytes automated count (number/volume) 4.1 10*3/uL 4.3-11.0 Blood erythrocytes automated count (number/volume) 4.29 10*6/uL 4.35-5.85 Venous blood hemoglobin measurement (mass/volume) 13.3 g/dL 13.3-17.7 Blood hematocrit (volume fraction) 39 % 40-54 Automated erythrocyte mean corpuscular volume 91 [foz_us] 80-99 Automated erythrocyte mean corpuscular hemoglobin (mass per erythrocyte) 31 pg 25-34 Automated erythrocyte mean corpuscular hemoglobin concentration measurement (mass/volume) 34 g/dL 32-36 Automated erythrocyte distribution width ratio 16.2 % 10.0- 14.5 Automated blood platelet count (count/volume) 56 10*3/uL 130- 400 Automated blood platelet mean volume measurement 9.5 [foz_us] 7.4-10.4 Automated blood neutrophils/100 leukocytes 35 % 42-75 Automated blood lymphocytes/100 leukocytes 52 % 12-44 Blood monocytes/100 leukocytes 9 % 0-12 Automated blood eosinophils/100 leukocytes 2 % 0-10 Automated blood basophils/100 leukocytes 2 % 0-10 Blood neutrophils automated count (number/volume) 1.5 10*3 1.8-7.8 Blood lymphocytes automated count (number/volume) 2.2 10*3 1.0-4.0 Blood monocytes automated count (number/volume) 0.4 10*3 0.0- 1.0 Automated eosinophil count 0.1 10*3/uL 0.0-0.3 Automated blood basophil count (count/volume) 0.1 10*3/uL 0.0-0.1 Whole blood basic metabolic panel - 02/08/19 03:50 Serum or plasma sodium measurement (moles/volume) 140 mmol/L 135-145 Serum or plasma potassium measurement (moles/volume) 3.6 mmol/L 3.6-5.0 Serum or plasma chloride measurement (moles/volume) 102 mmol/L 98-107 Carbon dioxide 21 mmol/L 21-32 Serum or plasma anion gap determination (moles/volume) 17 mmol/L 5-14 Serum or plasma urea nitrogen measurement (mass/volume) 7 mg/dL 7-18 Serum or plasma creatinine measurement (mass/volume) 0.74 mg/dL 0.60-1.30 Serum or plasma urea nitrogen/creatinine mass ratio 9 NRG Serum or plasma creatinine measurement with calculation of estimated glomerular filtration rate > NRG Serum or plasma glucose measurement (mass/volume) 74 mg/dL 70-105 Serum or plasma calcium measurement (mass/volume) 8.6 mg/dL 8.5-10.1 Serum or plasma phosphate measurement (mass/volume) - 02/08/19 03:50 Serum or plasma phosphate measurement (mass/volume) 2.8 mg/dL 2.3-4.7 Magnesium - 02/08/19 03:50 Magnesium 1.9 mg/dL 1.8-2.4 Pathologist review of blood test by comment - 02/08/19 03:50 Blood leukocytes automated count (number/volume) 4.2 10*3/uL 4.3-11.0 Blood erythrocytes automated count (number/volume) 4.32 10*6/uL 4.35-5.85 Venous blood hemoglobin measurement (mass/volume) 13.2 g/dL 13.3-17.7 Blood hematocrit (volume fraction) 40 % 40-54 Automated erythrocyte mean corpuscular volume 91 [foz_us] 80-99 Automated erythrocyte mean corpuscular hemoglobin (mass per erythrocyte) 31 pg 25-34 Automated erythrocyte mean corpuscular hemoglobin concentration measurement (mass/volume) 33 g/dL 32-36 Automated erythrocyte distribution width ratio 16.3 % 10.0- 14.5 Automated blood platelet count (count/volume) 66 10*3/uL 130- 400 Automated blood platelet mean volume measurement 10.0 [foz_us] 7.4-10.4 Automated blood neutrophils/100 leukocytes 37 % 42-75 Automated blood lymphocytes/100 leukocytes 51 % 12-44 Blood monocytes/100 leukocytes 5 % NRG Automated blood eosinophils/100 leukocytes 3 % 0-10 Automated blood basophils/100 leukocytes 1 % 0-10 Blood neutrophils automated count (number/volume) 1.5 10*3 1.8-7.8 Blood lymphocytes automated count (number/volume) 2.1 10*3 1.0-4.0 Blood monocytes automated count (number/volume) 0.4 10*3 0.0- 1.0 Automated eosinophil count 0.1 10*3/uL 0.0-0.3 Automated blood basophil count (count/volume) 0.1 10*3/uL 0.0-0.1 Manual blood segmented neutrophils/100 leukocytes 43 % NRG Blood band neutrophils/100 leukocytes 2 % NRG Manual blood lymphocytes/100 leukocytes 41 % NRG Manual eosinophils/100 leukocytes in nose 2 % NRG Manual blood basophils/100 leukocytes 1 % NRG Blood smudge cells detection by light microscopy SLIGHT NRG Blood lymphocytes variant/100 leukocytes 6 % NRG Blood anisocytosis detection by light microscopy SLIGHT NRG Blood reticulocytes count (number/volume) 42 10*9/L 24-90 Blood reticulocytes/100 erythrocytes 0.96 % 0.50-2.40 PT panel in platelet poor plasma by coagulation assay - 02/08/19 03:50 Prothrombin time (PT) in platelet poor plasma by coagulation assay 15.6 s 12.2-14.7 INR in platelet poor plasma or blood by coagulation assay 1.2 0.8-1.4 Activated partial thromboplastin time (aPTT) in platelet poor plasma bycoagulation assay - 02/08/19 03:50 Activated partial thromboplastin time (aPTT) in platelet poor plasma bycoagulation assay 31 s 24-35 Acute hepatitis panel - 02/08/19 03:50 Confirmatory quantitative serum or plasma hepatitis B virus surface antigen measurement Non-Reactive Non-Reactive Hepatitis A virus IgM antibody assay Non-Reactive Non-Reactive Hepatitis B virus core IgM antibody assay Non-Reactive Non- Reactive Serum hepatitis C virus antibody detection Non-Reactive Non- Reactive Encounters ACCT No. Visit Date/Time Discharge Status Pt. Type Provider Facility Loc./Unit Complaint [id number] 02/07/2019 23:33:00 02/08/2019 16:10:00 DIS Outpatient IRIS MAY MD [facility] 4TH ETOH INTOXICATION/ABUSE; ABD PAIN [id number] 10/24/2016 12:00:00 10/24/2016 17:51:00 DIS Inpatient URIAH HAMILTON DO [facility] 4TH ALCOHOL DETOX
[2019-05-16 15:26] LABS: HEMATOCRIT 42 % (40-54); HEMOGLOBIN 14.4 G/DL (13.3-17.7); MEAN CORPUSCULAR HEMOGLOBIN 30 PG (25-34); WHITE BLOOD COUNT 12.1 10^3/uL (4.3-11.0)
[2019-05-16 15:27] LABS: BASOPHILS # (AUTO) 0.1 10^3/uL (0.0-0.1); BASOPHILS % (AUTO) 1 % (0-10); EOSINOPHILS # (AUTO) 0.2 10^3/uL (0.0-0.3); EOSINOPHILS % (AUTO) 2 % (0-10); LYMPHOCYTES # (AUTO) 5.5 X 10^3 (1.0-4.0); LYMPHOCYTES % (AUTO) 46 % (12-44); MEAN CORPUSCULAR HGB CONC 34 G/DL (32-36); MEAN CORPUSCULAR VOLUME 87 FL (80-99); MEAN PLATELET VOLUME 9.8 FL (7.4-10.4); MONOCYTES # (AUTO) 0.4 X 10^3 (0.0-1.0); MONOCYTES % (AUTO) 3 % (0-12); NEUTROPHILS # (AUTO) 5.9 X 10^3 (1.8-7.8); NEUTROPHILS % (AUTO) 49 % (42-75); PLATELET COUNT 145 10^3/uL (130-400); RED CELL DISTRIBUTION WIDTH 14.1 % (10.0-14.5)
[2019-05-16 15:54] LABS: AMPHETAMINE SCREEN, URINE NEGATIVE (NEGATIVE); BARBITURATE SCREEN URINE NEGATIVE (NEGATIVE); BENZODIAZEPINES SCREEN URINE NEGATIVE (NEGATIVE); CANNABINOID SCREEN, URINE NEGATIVE (NEGATIVE); COCAINE SCREEN URINE NEGATIVE (NEGATIVE); METHADONE STAT NEGATIVE (NEGATIVE); METHAMPHETAMINE SCREEN URINE S NEGATIVE (NEGATIVE); OPIATE SCREEN URINE NEGATIVE (NEGATIVE); OXYCODONE STAT NEGATIVE (NEGATIVE); PROPOXYPHENE STAT NEGATIVE (NEGATIVE); TRICYCLIC ANTIDEPRESSANTS SCRE NEGATIVE (NEGATIVE)
[2019-05-16 15:58] LABS: BILIRUBIN,TOTAL 0.6 MG/DL (0.1-1.0); BUN/CREATININE RATIO 14; CALCIUM 8.9 MG/DL (8.5-10.1); CARBON DIOXIDE 20 MMOL/L (21-32); CHLORIDE 101 MMOL/L (98-107); CREATININE SERUM 0.86 MG/DL (0.60-1.30); GFR ESTIMATED > 60; GLUCOSE 87 MG/DL (70-105); POTASSIUM 4.1 MMOL/L (3.6-5.0); SODIUM 142 MMOL/L (135-145)
[2019-05-16 15:59] LABS: ALANINE AMINOTRANSFERASE 20 U/L (0-55); ALBUMIN 4.6 GM/DL (3.2-4.5); ALKALINE PHOSPHATASE 54 U/L (40-136); TOTAL PROTEIN 7.3 GM/DL (6.4-8.2)
[2019-05-16 16:00] LABS: ACETAMINOPHEN < 10 UG/ML (10-30); SALICYLATE < 0.3 MG/DL (5.0-20.0)
--- NOTE | 2019-05-16 16:01 | ED Psychosocial ---
General Chief Complaint: Suicidal Ideation Risk Stated Complaint: ALCOHOL INTOXICATION Nursing Triage Note: Patient reports he no longer wants to live and wanted to take a handful of pills to kill himself. He states either he or his neighbors called 911 today. He reports drinking two liters of hard liquor within the last 24 hours. Source: patient Exam Limitations: no limitations History of Present Illness Date Seen by Provider: May 16, 2019 Time Seen by Provider: 14:30 Initial Comments Patient reports he no longer wants to live and wanted to take a handful of pills to kill himself. He states either he or his neighbors called 911 today. He reports drinking two liters of hard liquor within the last 24 hours. He was apparently drinking vodka and threatening to take his medicines to kill himself while talking to the [facility]. When asked about this he states that he doesn't think that he said that. He says however that he is thinking of killing himself but has not thought about way or plan. He does state he would like to euthanize himself. He apparently started drinking alcohol yesterday after his ex- showed up. Timing/Duration: just prior to arrival Severity: mild Associated Symptoms: impaired concentration, ingestion Allergies and Home Medications Allergies Coded Allergies: No Known Drug Allergies (Unverified , 02/07/19) Home Medications Aspirin 81 Mg Tablet.dr, 81 MG PO DAILY PRN for CHEST DISCOMFORT, (Reported) Calcium Carbonate 200 Mg Tab.chew, 200 MG PO QID PRN for INDIGESTION, (Reported) Lisinopril 10 Mg Tablet, 10 MG PO HS, (Reported) Lorazepam 0.5 Mg Tablet, 0.5 MG PO DAILY PRN for ANXIETY, (Reported) Metoprolol Tartrate 25 Mg Tablet, 12.5 MG PO BID, (Reported) TAKES 1/2 (25MG) TABLET Patient Home Medication List Home Medication List Reviewed: Yes Review of Systems Constitutional: see HPI EENTM: see HPI Respiratory: see HPI Cardiovascular: see HPI Gastrointestinal: see HPI Genitourinary: see HPI Musculoskeletal: see HPI Skin: see HPI Psychiatric/Neurological: No Symptoms Reported, See HPI, Anxiety, Depressed, Emotional Problems Past Dsbjtsl-Itohgs-Gzatzf Hx Past Med/Social Hx: Reviewed Nursing Past Med/Soc Hx Patient Social History Alcohol Use: Regular Use Number of Drinks Today: FF Alcohol Beverage of Choice: Vodka Recreational Drug Use: No Smoking Status: Never a Smoker 2nd Hand Smoke Exposure: No Recent Foreign Travel: No Contact w/Someone Who Travel: No Recent Infectious Disease Expo: No Recent Hopitalizations: Yes Physical Abuse: No Sexual Abuse: No Mistreated: No Fear: No Immunizations Up To Date Tetanus Booster (TDap): Unknown PED Vaccines UTD: No Seasonal Allergies Seasonal Allergies: No Past Medical History Respiratory: No Currently Using CPAP: No Currently Using BIPAP: No Cardiac: Yes Angina Neurological: No Sexually Transmitted Disease: No HIV/AIDS: No Genitourinary: No Gastrointestinal: Yes (GERD) Musculoskeletal: No Endocrine: No HEENT: No Loss of Vision: Denies Hearing Impairment: Denies Cancer: No Did You Recieve Any Treatments: No Psychosocial: Yes Anxiety, PTSD, Depression Integumentary: No Blood Disorders: No Adverse Reaction/Blood Tranf: No Physical Exam Vital Signs - First Documented 05/16/19 14:30 Temp 99.1 Pulse 110 Resp 22 B/P (MAP) 151/84 (106) Pulse Ox 97 O2 Delivery Room Air Capillary Refill : Less Than 3 Seconds Height, Weight, BMI Height: 6'0" Weight: 230lbs. 0.0oz. [id number]; 30.7 BMI Method:Stated General Appearance: WD/WN, no apparent distress HEENT: PERRL/EOMI, normal ENT inspection, TMs normal, pharynx normal Neck: non-tender, full range of motion, supple, normal inspection Respiratory: chest non-tender, lungs clear, normal breath sounds, no respiratory distress, no accessory muscle use, respiratory distress Cardiovascular: normal peripheral pulses, regular rate, rhythm, no edema, no gallop, no JVD, no murmur Peripheral Pulses: 0 Carotid (R); 2+ Carotid (R); 0 Carotid (L); 2+ Carotid (L); 0 Femoral (R); 2+ Femoral (R); 0 Femoral (L); 2+ Femoral (L); 0 Dorsalis Pedis (R); 2+ Dorsalis Pedis (R), 2+ Left Dors-Pedis (L), 2+ Radial Pulses (R), 2+ Radial Pulses (L) Gastrointestinal: normal bowel sounds, non tender, soft, no organomegaly, no pulsatile mass Genital/Rectal: normal genital exam, normal rectal exam, heme negative stool, normal rectal tone, normal vaginal exam, blood at urethral meatus, decreased rectal tone Extremities: normal range of motion, non-tender, normal inspection, no pedal edema, no calf tenderness, normal capillary refill, pelvis stable Neurologic/Psychiatric: maintenance craftsman II-XII nml as tested, no motor/sensory deficits, alert, oriented x 3, abnormal cerebellar tests, abnormal maintenance craftsman II-XII, depressed affect Appearance/Memory: appropriate appearance, appropriate insight, neat, no memory impairment, denies illness Behavior/Eye Contact: cooperative, good eye contact, normal speech Thoughts/Hallucinations: normal thought pattern, no apparent hallucination Skin: normal color, warm/dry Lymphatic: no adenopathy Progress/Results/Core Measures Results/Orders Lab Results Laboratory Tests Test 05/16/19 15:15 05/16/19 15:20 Range/Units White Blood Count 12.1 H 4.3-11.0 10^3/uL Red Blood Count 4.84 4.35-5.85 10^6/uL Hemoglobin 14.4 13.3-17.7 G/DL Hematocrit 42 40-54 % Mean Corpuscular Volume 87 80-99 FL Mean Corpuscular Hemoglobin 30 25-34 PG Mean Corpuscular Hemoglobin Concent 34 32-36 G/DL Red Cell Distribution Width 14.1 10.0-14.5 % Platelet Count 145 130-400 10^3/uL Mean Platelet Volume 9.8 7.4-10.4 FL Neutrophils (%) (Auto) 49 42-75 % Lymphocytes (%) (Auto) 46 H 12-44 % Monocytes (%) (Auto) 3 0-12 % Eosinophils (%) (Auto) 2 0-10 % Basophils (%) (Auto) 1 0-10 % Neutrophils # (Auto) 5.9 1.8-7.8 X 10^3 Lymphocytes # (Auto) 5.5 H 1.0-4.0 X 10^3 Monocytes # (Auto) 0.4 0.0-1.0 X 10^3 Eosinophils # (Auto) 0.2 0.0-0.3 10^3/uL Basophils # (Auto) 0.1 0.0-0.1 10^3/uL Sodium Level 142 135-145 MMOL/L Potassium Level 4.1 3.6-5.0 MMOL/L Chloride Level 101 98-107 MMOL/L Carbon Dioxide Level 20 L 21-32 MMOL/L Anion Gap 21 H 5-14 MMOL/L Blood Urea Nitrogen 12 7-18 MG/DL Creatinine 0.86 0.60-1.30 MG/DL Estimat Glomerular Filtration Rate > 60 BUN/Creatinine Ratio 14 Glucose Level 87 70-105 MG/DL Calcium Level 8.9 8.5-10.1 MG/DL Corrected Calcium 8.5-10.1 MG/DL Total Bilirubin 0.6 0.1-1.0 MG/DL Aspartate Amino Transf (AST/SGOT) 27 5-34 U/L Alanine Aminotransferase (ALT/SGPT) 20 0-55 U/L Alkaline Phosphatase 54 40-136 U/L Total Protein 7.3 6.4-8.2 GM/DL Albumin 4.6 H 3.2-4.5 GM/DL Salicylates Level < 0.3 L 5.0-20.0 MG/DL Acetaminophen Level < 10 L 10-30 UG/ML Serum Alcohol 322 *H <10 MG/DL Urine Opiates Screen NEGATIVE NEGATIVE Urine Oxycodone Screen NEGATIVE NEGATIVE Urine Methadone Screen NEGATIVE NEGATIVE Urine Propoxyphene Screen NEGATIVE NEGATIVE Urine Barbiturates Screen NEGATIVE NEGATIVE Ur Tricyclic Antidepressants Screen NEGATIVE NEGATIVE Urine Phencyclidine Screen NEGATIVE NEGATIVE Urine Amphetamines Screen NEGATIVE NEGATIVE Urine Methamphetamines Screen NEGATIVE NEGATIVE Urine Benzodiazepines Screen NEGATIVE NEGATIVE Urine Cocaine Screen NEGATIVE NEGATIVE Urine Cannabinoids Screen NEGATIVE NEGATIVE My Orders Orders - ROE LUI MD Cbc With Automated Diff (05/16/19 14:51) Comprehensive Metabolic Panel (05/16/19 14:51) Thyroid Stimulating Hormone (05/16/19 14:51) Drug Screen Stat (Urine) (05/16/19 14:51) Alcohol (05/16/19 14:51) Ekg Tracing (05/16/19 14:51) Urinalysis (05/16/19 15:03) Acetaminophen (05/16/19 15:03) Salicylate (05/16/19 15:03) Ibuprofen Tablet (Motrin Tablet) (05/16/19 17:00) Medications Given in ED Current Medications Medications Dose Ordered Sig/Regino Route Start Time Stop Time Status Last Admin Dose Admin Ibuprofen 600 mg ONCE ONCE PO 05/16/19 17:00 05/16/19 17:01 DC 05/16/19 17:07 600 MG Vital Signs/I&O 05/16/19 14:30 Temp 99.1 Pulse 110 Resp 22 B/P (MAP) 151/84 (106) Pulse Ox 97 O2 Delivery Room Air Blood Pressure Mean: 106 Progress Progress Note : Time: 16:48 Progress Note Patient reports he no longer wants to live and wanted to take a handful of pills to kill himself. He states either he or his neighbors called 911 today. He reports drinking two liters of hard liquor within the last 24 hours. He was apparently drinking vodka and threatening to take his medicines to kill himself while talking to the [facility]. When asked about this he states that he doesn't think that he said that. He says however that he is thinking of killing himself but has not thought about way or plan. He does state he would like to euthanize himself. He apparently started drinking alcohol yesterday after his ex- showed up. Patient's physical examination is essentially unremarkable save for the strong smell of alcohol on his breath. Laboratory evaluation is essentially unremarkable with the exception of the blood alcohol level which is 322 Because he will not be able to be evaluated by a psychiatric ball warper tender until his blood alcohol drops below 100 he will be sent to [facility] under the care of Dr. Bunn Departure Communication (Admissions) The care of this patient was transferred to Dr. Argueta at 6 PM on 05/16/2019 Impression Primary Impression: Alcohol intoxication Additional Impression: Suicide ideation Disposition: XFER SHT-TRM HOSP Condition: Unchanged Admissions Decision to Admit Reason: Admit from ER (General) Decision to Admit/Date: May 16, 2019 Time/Decision to Admit Time: 16:52 Transfer Transfer Progress Notes Patient reports he no longer wants to live and wanted to take a handful of pills to kill himself. He states either he or his neighbors called 911 today. He reports drinking two liters of hard liquor within the last 24 hours. He was apparently drinking vodka and threatening to take his medicines to kill himself while talking to the [facility]. When asked about this he states that he doesn't think that he said that. He says however that he is thinking of killing himself but has not thought about way or plan. He does state he would like to euthanize himself. He apparently started drinking alcohol yesterday after his ex- showed up. Patient's physical examination is essentially unremarkable save for the strong smell of alcohol on his breath. Laboratory evaluation is essentially unremarkable with the exception of the blood alcohol level which is 322 Because he will not be able to be evaluated by a psychiatric ball warper tender until his blood alcohol drops below 100 he will be sent to [facility] under the care of Dr. Bunn HOWEVER Dr. Bunn refuses to take the patient because there is suicidal ideation. The plan at this time is to transfer the patient to [facility] Care of this patient was transferred to Dr. Batista at 6 PM Method of Transfer: EMS Departure-Patient Inst. Referrals: NO,LOCAL PHYSICIAN (PCP/Family) Primary Care Physician ROE LUI MD May 16, 2019 16:01
[2019-05-16] MEDS ORDERED: IBUPROFEN 600 MG (MOTRIN) TAB PO ONE (17:00)
--- NOTE | 2019-05-16 17:00 | NUR ---
Patient's alcohol level too high to have [facility] screening, Via [facility] ICU on diversion. [facility] nursing food preparation supervisor contacted, they have beds available. Attempted to contact Dr. Bunn, informed that she is not career education teacher for [place]. Dr. Healy contacted by Dr. Arce, per Dr. Arce, Dr. Healy refused to accept patient because he is suicidal. Contacted [facility] housekeeper head, informed they will have more staff at 7 pm and will no longer be on ICU diversion. Dr. Arce informed.
--- NOTE | 2019-05-16 19:32 | NUR ---
CALLED [facility]IA [facility] FOR A ROOM AND WAS INFORMED THERE WERE NO ROOMS AVAILABLE. DOCTOR BYERS INFORMED.
[2019-05-16] MEDS ORDERED: THIAMINE IV SCH (21:00)
[2019-05-16] MEDS ORDERED: NS IV SCH (21:00)
--- NOTE | 2019-05-17 00:39 | NUR ---
PT. RESTING WITH EYES CLOSED. OFFICER REMAINS WITH THE PATIENT.
--- NOTE | 2019-05-17 01:09 | NUR ---
PT. PULLED HIS IV OUT IN ERROR.
--- NOTE | 2019-05-17 02:49 | NUR ---
PT. UP TO THE BATHROOM AT THIS TIME.
[2019-05-17] MEDS ORDERED: LORazepam 0.5 MG (ATIVAN) TABLET PO STA (03:32)
[2019-05-17] MEDS ORDERED: KETOROLAC 30 MG/ML VIAL IM ONE (03:45)
--- NOTE | 2019-05-17 03:45 | NUR ---
after drawing the toradol up and started to give the medication to the patient he refused so the pt did not receive the toradol and it was wasted.
--- NOTE | 2019-05-17 05:01 | NUR ---
PT. SLEEPING AT THIS TIME.
[2019-05-17 08:00] VITALS: BP 138/68
--- NOTE | 2019-05-17 08:10 | NUR ---
Blood alcohol level 18, [facility] called for screening. Per Jacky, a screener will be out to see patient as soon as possible. Patient resting quietly with no complaints, offered bathroom, fluids, and food, PD officer with patient.
--- NOTE | 2019-05-17 08:17 | NUR ---
Call received from Rock Rey at [facility], he will be here in approximately 30 minutes to screen patient.
[2019-05-17 11:47] VITALS: BP 160/75
== END 2019-05-17 11:42 | disposition home or self-care (01) ==
LOC: EDUNIT# 14:30 → ER FS 14:31
DX: F10.129 Alcohol abuse with intoxication, unspecified (principal); R45.851 Suicidal ideations; K21.9 Gastro-esophageal reflux disease without esophagitis; F43.10 Post-traumatic stress disorder, unspecified; F32.9 Major depressive disorder, single episode, unspecified; F41.9 Anxiety disorder, unspecified; Z79.82 Long term (current) use of aspirin; Y90.8 Blood alcohol level of 240 mg/100 ml or more
CPT/HCPCS: 36415; 80053; 80306; 80320; 80329; 84443; 85025; 93005

== ENCOUNTER 2019-06-22 23:33 | Emergency (ER) | payer OTHER ==
[~2019-06-22] VITALS: Ht 180.3 cm; Wt 105.0 kg
[2019-06-22] MEDS ORDERED: NS IV 1000 ML 1,000 ML IV SCH (23:45)
[2019-06-22] MEDS ORDERED: ONDANSETRON 4 MG/2 ML (SDV) Z0FRAN IVP ONE (23:45)
[2019-06-22] MEDS ORDERED: THIAMINE 100 MG/ML 2 ML (VITAMIN B-1) VIAL IV ONE (23:45)
--- NOTE | 2019-06-22 23:47 | ED General ---
General Chief Complaint: Abdominal/GI Problems Stated Complaint: VOMITING Source of Information: Patient Exam Limitations: No Limitations History of Present Illness Date Seen by Provider: Jun 22, 2019 Time Seen by Provider: 23:45 Initial Comments The patient is a pleasant 50-year-old male who presents for evaluation of nausea and vomiting over the last 2 days. He reports that he is an alcoholic and that his last drink was 2 days ago. He called EMS because he was concerned that he was getting dehydrated and not eating well. He denies fevers or chills, hematemesis, diarrhea, rectal bleeding, abdominal or back pain, chest pain or shortness of breath, dizziness or syncope. He is alert and oriented 4, slightly anxious, but appears to be in no distress at this time. Timing/Duration: 1-2 Days Severity: Moderate Associated Systoms: Nausea/Vomiting Allergies and Home Medications Allergies Coded Allergies: No Known Drug Allergies (Unverified , 02/07/19) Home Medications Aspirin 81 Mg Tablet.dr, 81 MG PO DAILY PRN for CHEST DISCOMFORT, (Reported) Calcium Carbonate 200 Mg Tab.chew, 200 MG PO QID PRN for INDIGESTION, (Reported) Lisinopril 10 Mg Tablet, 10 MG PO HS, (Reported) Lorazepam 0.5 Mg Tablet, 0.5 MG PO DAILY PRN for ANXIETY, (Reported) Metoprolol Tartrate 25 Mg Tablet, 12.5 MG PO BID, (Reported) TAKES 1/2 (25MG) TABLET Patient Home Medication List Home Medication List Reviewed: Yes Review of Systems Review of Systems Constitutional: no symptoms reported EENTM: no symptoms reported Respiratory: no symptoms reported Cardiovascular: no symptoms reported Gastrointestinal: nausea, vomiting Genitourinary: no symptoms reported Musculoskeletal: no symptoms reported Skin: no symptoms reported Psychiatric/Neurological: No Symptoms Reported Hematologic/Lymphatic: No Symptoms Reported Immunological/Allergic: no symptoms reported All Other Systems Reviewed Negative Unless Noted: Yes Past Cbxrzxb-Ejbuwq-Muciby Hx Past Med/Social Hx: Reviewed Nursing Past Med/Soc Hx Patient Social History Alcohol Beverage of Choice: Vodka 2nd Hand Smoke Exposure: No Recent Hopitalizations: Yes Immunizations Up To Date Tetanus Booster (TDap): Unknown PED Vaccines UTD: No Seasonal Allergies Seasonal Allergies: No Past Medical History Respiratory: No Currently Using CPAP: No Currently Using BIPAP: No Cardiac: Yes Angina Neurological: No Sexually Transmitted Disease: No HIV/AIDS: No Genitourinary: No Gastrointestinal: Yes (GERD) Musculoskeletal: No Endocrine: No HEENT: No Loss of Vision: Denies Hearing Impairment: Denies Cancer: No Did You Recieve Any Treatments: No Psychosocial: Yes Anxiety, PTSD, Depression Integumentary: No Blood Disorders: No Adverse Reaction/Blood Tranf: No Physical Exam Vital Signs Vital Signs - First Documented 06/22/19 23:45 Temp 37.1 Pulse 96 Resp 18 B/P (MAP) 171/106 (127) Pulse Ox 96 O2 Delivery Room Air Capillary Refill : Height, Weight, BMI Height: 6'0" Weight: 230lbs. 0.0oz. [id number]; 30.7 BMI Method:Stated General Appearance: No Apparent Distress, WD/WN HEENT: PERRL/EOMI, Normal ENT Inspection, Other (dry mucous membranes) Neck: Full Range of Motion, Normal Inspection, Non Tender, Supple Respiratory: Chest Non Tender, Lungs Clear, Normal Breath Sounds, No Accessory Muscle Use, No Respiratory Distress Cardiovascular: Regular Rate, Rhythm, No Edema Gastrointestinal: Normal Bowel Sounds, No Pulsatile Mass, Non Tender, Soft Back: Normal Inspection, No CVA Tenderness Extremity: Normal Capillary Refill, Normal Inspection, Normal Range of Motion, Non Tender Neurologic/Psychiatric: Alert, Oriented x3, No Motor/Sensory Deficits, Normal Mood/Affect, animal keeper head II-XII Norm as Tested Skin: Normal Color, Warm/Dry Progress/Results/Core Measures Suspected Sepsis SIRS Temperature: Pulse: Respiratory Rate: Laboratory Tests 06/22/19 23:55: White Blood Count 2.9L Blood Pressure / Mean: Laboratory Tests 06/22/19 23:55: Creatinine 0.66, Platelet Count 38*L, Total Bilirubin 1.3H Results/Orders Lab Results Laboratory Tests Test 06/22/19 23:55 06/23/19 01:00 Range/Units White Blood Count 2.9 L 4.3-11.0 10^3/uL Red Blood Count 4.35 4.35-5.85 10^6/uL Hemoglobin 13.2 L 13.3-17.7 G/DL Hematocrit 39 L 40-54 % Mean Corpuscular Volume 89 80-99 FL Mean Corpuscular Hemoglobin 30 25-34 PG Mean Corpuscular Hemoglobin Concent 34 32-36 G/DL Red Cell Distribution Width 14.9 H 10.0-14.5 % Platelet Count 38 *L 130-400 10^3/uL Mean Platelet Volume 10.7 H 7.4-10.4 FL Neutrophils (%) (Auto) 64 42-75 % Lymphocytes (%) (Auto) 24 12-44 % Monocytes (%) (Auto) 9 0-12 % Eosinophils (%) (Auto) 2 0-10 % Basophils (%) (Auto) 1 0-10 % Neutrophils # (Auto) 1.9 1.8-7.8 X 10^3 Lymphocytes # (Auto) 0.7 L 1.0-4.0 X 10^3 Monocytes # (Auto) 0.3 0.0-1.0 X 10^3 Eosinophils # (Auto) 0.1 0.0-0.3 10^3/uL Basophils # (Auto) 0.0 0.0-0.1 10^3/uL Sodium Level 133 L 135-145 MMOL/L Potassium Level 3.8 3.6-5.0 MMOL/L Chloride Level 91 L 98-107 MMOL/L Carbon Dioxide Level 19 L 21-32 MMOL/L Anion Gap 23 H 5-14 MMOL/L Blood Urea Nitrogen 9 7-18 MG/DL Creatinine 0.66 0.60-1.30 MG/DL Estimat Glomerular Filtration Rate > 60 BUN/Creatinine Ratio 14 Glucose Level 98 70-105 MG/DL Calcium Level 9.0 8.5-10.1 MG/DL Corrected Calcium 8.6 8.5-10.1 MG/DL Magnesium Level 1.6 1.6-2.4 MG/DL Total Bilirubin 1.3 H 0.1-1.0 MG/DL Aspartate Amino Transf (AST/SGOT) 97 H 5-34 U/L Alanine Aminotransferase (ALT/SGPT) 85 H 0-55 U/L Alkaline Phosphatase 73 40-136 U/L Total Protein 6.7 6.4-8.2 GM/DL Albumin 4.5 3.2-4.5 GM/DL Lipase 87 H 8-78 U/L Serum Alcohol 40 H <10 MG/DL Urine Color YELLOW Urine Clarity CLEAR Urine pH 7.0 5-9 Urine Specific [place] 1.010 L 1.016-1.022 Urine Protein NEGATIVE NEGATIVE Urine Glucose (UA) NEGATIVE NEGATIVE Urine Ketones 1+ H NEGATIVE Urine Nitrite NEGATIVE NEGATIVE Urine Bilirubin NEGATIVE NEGATIVE Urine Urobilinogen 0.2 NORMAL MG/DL Urine Leukocyte Esterase NEGATIVE NEGATIVE Urine RBC (Auto) NEGATIVE NEGATIVE Urine RBC 0-2 /HPF Urine WBC 0-2 /HPF Urine Squamous Epithelial Cells RARE /HPF Urine Crystals NONE /LPF Urine Bacteria NEGATIVE /HPF Urine Casts NONE /LPF Urine Mucus SMALL H /LPF Urine Culture Indicated NO My Orders Orders - ROBIN HAAS DO Cbc With Automated Diff (06/22/19 23:36) Comprehensive Metabolic Panel (06/22/19 23:36) Lipase (06/22/19 23:36) Ua Culture If Indicated (06/22/19 23:36) Ed Iv/Invasive Line Start (06/22/19 23:36) Ns Iv 1000 Ml (Sodium Chloride 0.9%) (06/22/19 23:45) Ondansetron Injection (Zofran Injectio (06/22/19 23:45) Alcohol (06/22/19 23:44) Magnesium (06/22/19 23:44) Thiamine Injection (Vitamin B-1 Injectio (06/22/19 23:45) Lorazepam Injection (Ativan Injection) (06/23/19 00:00) Medications Given in ED Current Medications Medications Dose Ordered Sig/Regino Route Start Time Stop Time Status Last Admin Dose Admin Lorazepam 2 mg ONCE ONCE IVP 06/23/19 00:00 06/23/19 00:01 DC 06/23/19 00:03 2 MG Ondansetron HCl 4 mg ONCE ONCE IVP 06/22/19 23:45 06/22/19 23:46 DC 06/23/19 00:02 4 MG Thiamine HCl 100 mg ONCE ONCE IV 06/22/19 23:45 06/22/19 23:46 DC 06/23/19 00:03 100 MG Vital Signs/I&O 06/22/19 23:45 Temp 37.1 Pulse 96 Resp 18 B/P (MAP) 171/106 (127) Pulse Ox 96 O2 Delivery Room Air 06/23/19 00:00 Intake Total 500 ml Balance 500 ml Capillary Refill : Progress Note : Progress Note @0120 - Patient updated on lab results which show chronic alcoholism. The patient has not vomited since arrival. He states he is feeling better and has no new complaints. Advised the patient to follow up with his PCP in the next 1-2 days and to return to the Emergency Department immediately for new or worsening symptoms. Expresses verbal understanding and agreement with the plan and is stable for discharge. Departure Impression Primary Impression: Alcoholism Additional Impressions: Dehydration Thrombocytopenia Disposition: 01 HOME, SELF-CARE Condition: Stable Departure-Patient Inst. Referrals: NO,LOCAL PHYSICIAN (PCP) Primary Care Physician [facility] Patient Instructions: Alcohol Abuse and Alcoholism (DC), Dehydration, Adult (DC), Nausea and Vomiting, Adult Add. Discharge Instructions: Follow-up with your doctor in the next 1-2 days. Return to the ER for new or worsening symptoms. ROBIN HAAS DO Jun 22, 2019 23:47
[2019-06-23] MEDS ORDERED: LORazepam INJ 2 MG/ML (ATIVAN) VIAL IVP ONE
[2019-06-23 00:35] LABS: HEMATOCRIT 39 % (40-54); HEMOGLOBIN 13.2 G/DL (13.3-17.7); MEAN CORPUSCULAR HEMOGLOBIN 30 PG (25-34); MEAN CORPUSCULAR HGB CONC 34 G/DL (32-36); MEAN CORPUSCULAR VOLUME 89 FL (80-99); MEAN PLATELET VOLUME 10.7 FL (7.4-10.4); RED CELL DISTRIBUTION WIDTH 14.9 % (10.0-14.5); WHITE BLOOD COUNT 2.9 10^3/uL (4.3-11.0)
[2019-06-23 00:36] LABS: BASOPHILS % (AUTO) 1 % (0-10); EOSINOPHILS % (AUTO) 2 % (0-10); LYMPHOCYTES % (AUTO) 24 % (12-44); MONOCYTES % (AUTO) 9 % (0-12); NEUTROPHILS % (AUTO) 64 % (42-75)
[2019-06-23 00:37] LABS: EOSINOPHILS # (AUTO) 0.1 10^3/uL (0.0-0.3); LYMPHOCYTES # (AUTO) 0.7 X 10^3 (1.0-4.0); MONOCYTES # (AUTO) 0.3 X 10^3 (0.0-1.0); NEUTROPHILS # (AUTO) 1.9 X 10^3 (1.8-7.8)
[2019-06-23 00:55] LABS: PLATELET COUNT 38 10^3/uL (130-400)
[2019-06-23 00:56] LABS: ALANINE AMINOTRANSFERASE 85 U/L (0-55); ALKALINE PHOSPHATASE 73 U/L (40-136); BILIRUBIN,TOTAL 1.3 MG/DL (0.1-1.0); BUN/CREATININE RATIO 14; CARBON DIOXIDE 19 MMOL/L (21-32); CHLORIDE 91 MMOL/L (98-107); CREATININE SERUM 0.66 MG/DL (0.60-1.30); GFR ESTIMATED > 60; GLUCOSE 98 MG/DL (70-105); MAGNESIUM 1.6 MG/DL (1.6-2.4); POTASSIUM 3.8 MMOL/L (3.6-5.0); SODIUM 133 MMOL/L (135-145)
[2019-06-23 00:57] LABS: ALBUMIN 4.5 GM/DL (3.2-4.5); LIPASE 87 U/L (8-78); TOTAL PROTEIN 6.7 GM/DL (6.4-8.2)
[2019-06-23 01:14] LABS: BILIRUBIN,URINE NEGATIVE (NEGATIVE); CLARITY,URINE CLEAR; COLOR,URINE YELLOW; GLUCOSE, URINE (UA) NEGATIVE (NEGATIVE); KETONES,URINE 1+ (NEGATIVE); LEUKOCYTE ESTERASE ,URINE NEGATIVE (NEGATIVE); NITRITE,URINE NEGATIVE (NEGATIVE); PROTEIN,URINE NEGATIVE (NEGATIVE); RBC,URINE 0-2 /HPF; UROBILINOGEN,URINE 0.2 MG/DL (NORMAL); WBC,URINE 0-2 /HPF
[2019-06-23 01:15] LABS: BACTERIA,URINE NEGATIVE /HPF; SQUAMOUS EPITHELIAL CELL,UR RARE /HPF
[2019-06-23] MEDS ORDERED: RX-ONDANSETRON 4 MG ODT (ZOFRAN) PPK #4 PO STA (01:24)
[2019-06-23 01:36] VITALS: BP 161/74
== END 2019-06-23 01:30 | disposition home or self-care (01) ==
LOC: EDUNIT# 23:33 → ER FS 23:34
DX: F10.20 Alcohol dependence, uncomplicated (principal); E86.0 Dehydration; D69.6 Thrombocytopenia, unspecified; K21.9 Gastro-esophageal reflux disease without esophagitis; F41.9 Anxiety disorder, unspecified; F43.10 Post-traumatic stress disorder, unspecified; F32.9 Major depressive disorder, single episode, unspecified; Y90.2 Blood alcohol level of 40-59 mg/100 ml; Z79.82 Long term (current) use of aspirin
CPT/HCPCS: 36415; 80053; 80320; 81000; 83690; 83735; 85025; 96374; 96375; 99285

== ENCOUNTER 2019-09-13 21:01 | Emergency (ER) | payer OTHER ==
[~2019-09-13] VITALS: Ht 182.8 cm; Wt 100.6 kg
--- NOTE | 2019-09-13 21:32 | NUR ---
PT. KEEPS TALKING SAYING HE IS SORRY WHEN EVER HE ASKS FOR ANYTHING.
--- NOTE | 2019-09-13 21:33 | ED General ---
General Chief Complaint: Cough/Cold/Flu Symptoms Stated Complaint: CONGESTION History of Present Illness Date Seen by Provider: Sep 13, 2019 Time Seen by Provider: 21:15 Initial Comments Patient sent here with various medical complaints concerned about alcohol concerned about upper respiratory congestion concerned about being dehydrated at this point the dehydration seems intake center stated she is continually drinking has poor medical care poor hygiene he does have a primary care provider but doesn't seem like he is getting much help from them by his account. He doesn't exhibit a lot of insight to his issues is fairly apologetic about his health and hygiene. Timing/Duration: Constant Associated Systoms: Cough; No Fever/Chills, No Headaches; Loss of Appetite; No Nausea/Vomiting, No Seizure, No Shortness of Air, No Syncope; Weakness Allergies and Home Medications Allergies Coded Allergies: No Known Drug Allergies (Unverified , 02/07/19) Home Medications Aspirin 81 Mg Tablet.dr, 81 MG PO DAILY PRN for CHEST DISCOMFORT, (Reported) Calcium Carbonate 200 Mg Tab.chew, 200 MG PO QID PRN for INDIGESTION, (Reported) Lisinopril 10 Mg Tablet, 10 MG PO HS, (Reported) Lorazepam 0.5 Mg Tablet, 0.5 MG PO DAILY PRN for ANXIETY, (Reported) Metoprolol Tartrate 25 Mg Tablet, 12.5 MG PO BID, (Reported) TAKES 1/2 (25MG) TABLET Patient Home Medication List Home Medication List Reviewed: Yes Review of Systems Review of Systems Constitutional: No chills, No fever; malaise, weakness EENTM: No ear pain, No nose congestion, No throat pain Respiratory: No cough; phlegm; No short of breath, No stridor, No wheezing Cardiovascular: no symptoms reported Gastrointestinal: no symptoms reported Genitourinary: no symptoms reported Musculoskeletal: no symptoms reported Skin: no symptoms reported Psychiatric/Neurological: No Symptoms Reported Past Qxqfbkb-Crjzdf-Kmihwk Hx Past Med/Social Hx: Reviewed Nursing Past Med/Soc Hx Patient Social History Alcohol Beverage of Choice: [place], Vodka 2nd Hand Smoke Exposure: No Recent Foreign Travel: No Contact w/Someone Who Travel: No Recent Hopitalizations: Yes Immunizations Up To Date Tetanus Booster (TDap): Unknown PED Vaccines UTD: No Seasonal Allergies Seasonal Allergies: No Past Medical History Respiratory: No Currently Using CPAP: No Currently Using BIPAP: No Cardiac: Yes Angina Neurological: No Sexually Transmitted Disease: No HIV/AIDS: No Genitourinary: No Gastrointestinal: Yes (GERD) Musculoskeletal: No Endocrine: No HEENT: No Loss of Vision: Denies Hearing Impairment: Denies Cancer: No Did You Recieve Any Treatments: No Psychosocial: Yes Anxiety, PTSD, Depression Integumentary: No Blood Disorders: No Adverse Reaction/Blood Tranf: No Physical Exam Vital Signs Vital Signs - First Documented 09/13/19 21:05 Temp 36.6 Pulse 125 Resp 16 B/P (MAP) 161/99 (119) Pulse Ox 96 O2 Delivery Room Air Capillary Refill : Height, Weight, BMI Height: 6'0" Weight: 230lbs. 0.0oz. [id number]; 32.00 BMI Method:Stated General Appearance: No Apparent Distress, WD/WN, Other (poor hygiene) Eyes: Bilateral Eye PERRL, Bilateral Eye EOMI HEENT: PERRL/EOMI, TMs Normal, Pharynx Normal Neck: Supple Respiratory: Lungs Clear, No Respiratory Distress Cardiovascular: Regular Rate, Rhythm, No Murmur Gastrointestinal: Normal Bowel Sounds, Non Tender Extremity: Normal Inspection, No Calf Tenderness Neurologic/Psychiatric: Alert, Oriented x3 Skin: Normal Color, Warm/Dry Lymphatic: No Adenopathy Progress/Results/Core Measures Suspected Sepsis SIRS Temperature: Pulse: Respiratory Rate: Laboratory Tests 09/13/19 21:39: White Blood Count 4.5 Blood Pressure / Mean: Laboratory Tests 09/13/19 21:39: Creatinine 0.79, Platelet Count 61L, Total Bilirubin 2.0H Results/Orders Lab Results Laboratory Tests Test 09/13/19 21:39 Range/Units White Blood Count 4.5 4.3-11.0 10^3/uL Red Blood Count 4.72 4.35-5.85 10^6/uL Hemoglobin 14.4 13.3-17.7 G/DL Hematocrit 42 40-54 % Mean Corpuscular Volume 89 80-99 FL Mean Corpuscular Hemoglobin 31 25-34 PG Mean Corpuscular Hemoglobin Concent 34 32-36 G/DL Red Cell Distribution Width 14.5 10.0-14.5 % Platelet Count 61 L 130-400 10^3/uL Mean Platelet Volume 10.6 H 7.4-10.4 FL Neutrophils (%) (Auto) 63 42-75 % Lymphocytes (%) (Auto) 29 12-44 % Monocytes (%) (Auto) 6 0-12 % Eosinophils (%) (Auto) 1 0-10 % Basophils (%) (Auto) 1 0-10 % Neutrophils # (Auto) 2.9 1.8-7.8 X 10^3 Lymphocytes # (Auto) 1.3 1.0-4.0 X 10^3 Monocytes # (Auto) 0.3 0.0-1.0 X 10^3 Eosinophils # (Auto) 0.1 0.0-0.3 10^3/uL Basophils # (Auto) 0.0 0.0-0.1 10^3/uL Neutrophils % (Manual) 62 % Lymphocytes % (Manual) 29 % Monocytes % (Manual) 3 % Eosinophils % (Manual) 2 % Basophils % (Manual) 1 % Band Neutrophils 3 % Sodium Level 136 135-145 MMOL/L Potassium Level 4.5 3.6-5.0 MMOL/L Chloride Level 94 L 98-107 MMOL/L Carbon Dioxide Level 15 L 21-32 MMOL/L Anion Gap 27 H 5-14 MMOL/L Blood Urea Nitrogen 17 7-18 MG/DL Creatinine 0.79 0.60-1.30 MG/DL Estimat Glomerular Filtration Rate > 60 BUN/Creatinine Ratio 22 Glucose Level 79 70-105 MG/DL Calcium Level 9.8 8.5-10.1 MG/DL Corrected Calcium 8.5-10.1 MG/DL Total Bilirubin 2.0 H 0.1-1.0 MG/DL Aspartate Amino Transf (AST/SGOT) 108 H 5-34 U/L Alanine Aminotransferase (ALT/SGPT) 91 H 0-55 U/L Alkaline Phosphatase 60 40-136 U/L Total Protein 8.2 6.4-8.2 GM/DL Albumin 5.4 H 3.2-4.5 GM/DL Serum Alcohol 134 H <10 MG/DL My Orders Orders - ROE NORIEGA JR, MD Cbc And Manual Diff (09/13/19 21:31) Comprehensive Metabolic Panel (09/13/19 21:31) Alcohol (09/13/19 21:31) Ns Iv 1000 Ml (Sodium Chloride 0.9%) (09/13/19 21:45) Vital Signs/I&O 09/13/19 21:05 Temp 36.6 Pulse 125 Resp 16 B/P (MAP) 161/99 (119) Pulse Ox 96 O2 Delivery Room Air Capillary Refill : Progress Note : Progress Note Discussed with patient about lab work didn't feel like he was still dehydrated but I don't feel like that is the case and I felt like he was more trying to stall when he was concerned about his fluid status eating and drinking normally and assuming liquid here in the ER very easily up and ambulatory good control of his faculties in spite of his blood alcohol. The family go home and follow up with his primary care doctor to the for the myriad of other problems he is dealing with Critical Care Note Critical Care Date of : Sep 13, 2019 Departure Impression Primary Impression: Dehydration Additional Impression: Alcohol abuse Disposition: 01 HOME, SELF-CARE Condition: Stable Departure-Patient Inst. Referrals: NO,LOCAL PHYSICIAN (PCP/Family) Primary Care Physician Patient Instructions: Dehydration, Adult (DC), Alcohol Abuse and Alcoholism (DC) ROE NORIEGA JR, MD Sep 13, 2019 21:33 POS
[2019-09-13] MEDS ORDERED: NS IV 1000 ML 1,000 ML IV SCH (21:45)
[2019-09-13 21:46] LABS: BASOPHILS % (AUTO) 1 % (0-10); EOSINOPHILS % (AUTO) 1 % (0-10); HEMATOCRIT 42 % (40-54); HEMOGLOBIN 14.4 G/DL (13.3-17.7); LYMPHOCYTES % (AUTO) 29 % (12-44); MEAN CORPUSCULAR HEMOGLOBIN 31 PG (25-34); MEAN CORPUSCULAR HGB CONC 34 G/DL (32-36); MEAN CORPUSCULAR VOLUME 89 FL (80-99); MEAN PLATELET VOLUME 10.6 FL (7.4-10.4); MONOCYTES % (AUTO) 6 % (0-12); NEUTROPHILS % (AUTO) 63 % (42-75); PLATELET COUNT 61 10^3/uL (130-400); RED CELL DISTRIBUTION WIDTH 14.5 % (10.0-14.5); WHITE BLOOD COUNT 4.5 10^3/uL (4.3-11.0)
[2019-09-13 21:47] LABS: EOSINOPHILS # (AUTO) 0.1 10^3/uL (0.0-0.3); LYMPHOCYTES # (AUTO) 1.3 X 10^3 (1.0-4.0); MONOCYTES # (AUTO) 0.3 X 10^3 (0.0-1.0); NEUTROPHILS # (AUTO) 2.9 X 10^3 (1.8-7.8)
[2019-09-13 22:02] LABS: BAND NEUTROPHILS 3 %; BASOPHILS % (MANUAL) 1 %; EOSINOPHILS % (MANUAL) 2 %; LYMPHOCYTES % (MANUAL) 29 %; MONOCYTES % (MANUAL) 3 %; NEUTROPHILS % (MANUAL) 62 %
[2019-09-13 22:06] LABS: BUN/CREATININE RATIO 22; CARBON DIOXIDE 15 MMOL/L (21-32); CHLORIDE 94 MMOL/L (98-107); CREATININE SERUM 0.79 MG/DL (0.60-1.30); GFR ESTIMATED > 60; GLUCOSE 79 MG/DL (70-105); POTASSIUM 4.5 MMOL/L (3.6-5.0); SODIUM 136 MMOL/L (135-145)
[2019-09-13 22:07] LABS: ALANINE AMINOTRANSFERASE 91 U/L (0-55); ALBUMIN 5.4 GM/DL (3.2-4.5); ALKALINE PHOSPHATASE 60 U/L (40-136); CALCIUM 9.8 MG/DL (8.5-10.1); TOTAL PROTEIN 8.2 GM/DL (6.4-8.2)
[2019-09-13 22:38] VITALS: BP 161/99
== END 2019-09-13 22:46 | disposition home or self-care (01) ==
LOC: EDUNIT# 21:01 → ER FS 21:03
DX: E86.0 Dehydration (principal); F10.10 Alcohol abuse, uncomplicated; K21.9 Gastro-esophageal reflux disease without esophagitis; F41.9 Anxiety disorder, unspecified; F43.10 Post-traumatic stress disorder, unspecified; F32.9 Major depressive disorder, single episode, unspecified; Z79.82 Long term (current) use of aspirin; Y90.6 Blood alcohol level of 120-199 mg/100 ml
CPT/HCPCS: 36415; 80053; 80320; 85007; 85027; 96360; 99285

== ENCOUNTER 2019-11-20 13:37 | Emergency (ER) | payer OTHER ==
[~2019-11-20] VITALS: Ht 182 cm; Wt 104.0 kg
--- NOTE | 2019-11-20 13:40 | ED General ---
General Stated Complaint: INTOXICATED - BROUGHT IN BY [facility] Source of Information: Patient History of Present Illness Date Seen by Provider: Nov 20, 2019 Time Seen by Provider: 13:40 Initial Comments Patient is a 59-year-old male with history of alcoholism who is brought to the emergency department today by police. According to the patient, he was at home and needed someone to talk to. He did not have any friends or family that he felt he could call today. He called a suicide prevention line despite that he was not feeling suicidal. Patient is clinically intoxicated today and states he has been drinking more alcohol today than normal. He does drink every day. He has been more upset since Thursday when he states he went to his job under the influence of alcohol but he does not give more detail than that. Patient is explicitly not suicidal. He does not have a plan or thoughts of hurting himself. Allergies and Home Medications Allergies Coded Allergies: No Known Drug Allergies (Unverified , 02/07/19) Home Medications Aspirin 81 Mg Tablet.dr, 81 MG PO DAILY PRN for CHEST DISCOMFORT, (Reported) Calcium Carbonate 200 Mg Tab.chew, 200 MG PO QID PRN for INDIGESTION, (Reported) Lisinopril 10 Mg Tablet, 10 MG PO HS, (Reported) Lorazepam 0.5 Mg Tablet, 0.5 MG PO DAILY PRN for ANXIETY, (Reported) Metoprolol Tartrate 25 Mg Tablet, 12.5 MG PO BID, (Reported) TAKES 1/2 (25MG) TABLET Patient Home Medication List Home Medication List Reviewed: Yes Review of Systems Review of Systems Constitutional: no symptoms reported EENTM: no symptoms reported Respiratory: no symptoms reported Cardiovascular: no symptoms reported Musculoskeletal: no symptoms reported Skin: no symptoms reported All Other Systems Reviewed Negative Unless Noted: Yes Past Bahzqkx-Xywcys-Dnteif Hx Patient Social History Alcohol Beverage of Choice: [place], Vodka 2nd Hand Smoke Exposure: No Recent Foreign Travel: No Recent Hopitalizations: No Immunizations Up To Date Tetanus Booster (TDap): Unknown PED Vaccines UTD: No Seasonal Allergies Seasonal Allergies: No Past Medical History Respiratory: No Currently Using CPAP: No Currently Using BIPAP: No Cardiac: Yes Angina Neurological: No Sexually Transmitted Disease: No HIV/AIDS: No Genitourinary: No Gastrointestinal: Yes (GERD) Musculoskeletal: No Endocrine: No HEENT: No Loss of Vision: Denies Hearing Impairment: Denies Cancer: No Did You Recieve Any Treatments: No Psychosocial: Yes Anxiety, PTSD, Depression Integumentary: No Blood Disorders: No Adverse Reaction/Blood Tranf: No Physical Exam Vital Signs Vital Signs - First Documented 11/20/19 11/20/19 13:51 14:10 Temp 37.1 Pulse 98 Resp 16 B/P (MAP) 135/91 (106) Pulse Ox 95 O2 Delivery Nasal Cannula O2 Flow Rate 2.00 Capillary Refill : Height, Weight, BMI Height: 6'0" Weight: 230lbs. 0.0oz. 104.455589gc; 30.00 BMI Method:Stated General Appearance: No Apparent Distress, WD/WN HEENT: PERRL/EOMI Respiratory: Lungs Clear Cardiovascular: Regular Rate, Rhythm Neurologic/Psychiatric: Alert, Oriented x3, Other (slurred speech. unsteady gait) Skin: Normal Color Progress/Results/Core Measures Suspected Sepsis SIRS Temperature: Pulse: Respiratory Rate: Blood Pressure / Mean: Results/Orders Lab Results Laboratory Tests Test 11/20/19 14:50 Range/Units Serum Alcohol 350 *H <10 MG/DL My Orders Orders - ROSETTE GARAY DO Oxygen-Administer ,19 (11/20/19 14:10) Alcohol (11/20/19 14:43) Vital Signs/I&O 11/20/19 11/20/19 13:51 14:10 Temp 37.1 Pulse 98 Resp 16 B/P (MAP) 135/91 (106) Pulse Ox 95 93 O2 Delivery Nasal Cannula O2 Flow Rate 2.00 Capillary Refill : Progress Note : Time: 13:59 Progress Note Patient is evaluated on arrival to his room. Although he is brought to the hospital by local police, he is not in custody and had not committed a crime. He is not suicidal. He is clinically intoxicated with an unsteady gait and slurred speech. Review of his electronic medical record does reveal frequent similar visits, primarily secondary to alcohol intoxication. Patient has no specific complaints today other than alcohol intoxication. Plan in the ER is to observe him until more sober and discharged home. 16:05: Patient is currently awake and alert. He is requesting discharge home. He is calm and cooperative. He does not endorse any feelings of self-harm. Patient is ambulated about the department and has a normal steady gait. Patient is discharged home. I recommended he follow up with his primary care doctor. Return to the ER for any new concerns. Departure Impression Primary Impression: Alcohol withdrawal Disposition: 01 HOME, SELF-CARE Condition: Improved Departure-Patient Inst. Referrals: NO,LOCAL PHYSICIAN (PCP/Family) Primary Care Physician ROSETTE GARAY DO Nov 20, 2019 13:40
[2019-11-20 16:04] VITALS: BP 131/85
--- OUTSIDE RECORDS SUMMARY | 2019-11-28 13:01 | XMS REPORT | Continuity of Care Document ---
Author Organization Unknown Address Unknown Phone Unavailable Allergies Active Description Code Type Severity Reaction Onset Reported/Identified Relationship to Patient Clinical Status Yes No Allergy Information Available [id number] Drug Allergy Unknown N/A 017 Yes No Known Drug Allergies [id number] Drug Allergy Unknown N/A 02/07/2019 Medications There is no data. Problems Date Dx Coded Attending Type Code Diagnosis Diagnosed By 10/24/2016 URIAH HAMILTON DO Ot F10.22 0 ALCOHOL DEPENDENCE WITH INTOXICATION, UN 02/08/2019 IRIS MAY MD, Ot D69 .6 THROMBOCYTOPENIA, UNSPECIFIED 02/08/2019 IRIS MAY MD Ot F10.229 ALCOHOL DEPENDENCE WITH INTOXICATION, UN 02/08/2019 IRIS MAY MD Ot F32 .9 MAJOR DEPRESSIVE DISORDER, SINGLE EPISOD 02/08/2019 IRIS MAY MD Ot F41 .9 ANXIETY DISORDER, UNSPECIFIED 02/08/2019 IRIS MAY MD Ot F43.10 POST-TRAUMATIC STRESS DISORDER, UNSPECIF 02/08/2019 IRIS MAY MD Ot K76 .0 FATTY (CHANGE OF) LIVER, NOT ELSEWHERE C 02/08/2019 IRIS MAY MD Ot R10.31 RIGHT LOWER QUADRANT PAIN 02/08/2019 IRIS MAY MD Ot Y90 .8 BLOOD ALCOHOL LEVEL OF 240 MG/100 ML OR 02/08/2019 IRIS MAY MD Ot Z79.82 [facility] (CURRENT) USE OF ASPIRIN 02/08/2019 IRIS MAY MD Ot Z79.899 OTHER [facility] (CURRENT) DRUG THERAPY 02/08/2019 IRIS MAY MD Ot Z87.19 PERSONAL HISTORY OF OTHER DISEASES OF TH 02/18/2019 IRIS MAY MD Ot D69 .6 THROMBOCYTOPENIA, UNSPECIFIED 02/18/2019 IRIS MAY MD Ot F10.229 ALCOHOL DEPENDENCE WITH INTOXICATION, UN 02/18/2019 IRIS MAY MD Ot F32 .9 MAJOR DEPRESSIVE DISORDER, SINGLE EPISOD 02/18/2019 IRIS MAY MD Ot F41 .9 ANXIETY DISORDER, UNSPECIFIED 02/18/2019 IRIS MAY MD Ot F43.10 POST-TRAUMATIC STRESS DISORDER, UNSPECIF 02/18/2019 IRIS MAY MD Ot K76 .0 FATTY (CHANGE OF) LIVER, NOT ELSEWHERE C 02/18/2019 IRIS MAY MD Ot R10.31 RIGHT LOWER QUADRANT PAIN 02/18/2019 IRIS MAY MD Ot Y90 .8 BLOOD ALCOHOL LEVEL OF 240 MG/100 ML OR 02/18/2019 IRIS MAY MD Ot Z79.82 [facility] (CURRENT) USE OF ASPIRIN 02/18/2019 IRIS MAY MD Ot Z79.899 OTHER [facility] (CURRENT) DRUG THERAPY 02/18/2019 IRIS MAY MD Ot Z87.19 PERSONAL HISTORY OF OTHER DISEASES OF 02/18/2019 IRIS MAY MD Ot D69 .6 THROMBOCYTOPENIA, UNSPECIFIED 02/18/2019 IRIS MAY MD Ot F10.229 ALCOHOL DEPENDENCE WITH INTOXICATION, UN 02/18/2019 IRIS MAY MD Ot F32 .9 MAJOR DEPRESSIVE DISORDER, SINGLE EPISOD 02/18/2019 IRIS MAY MD Ot F41 .9 ANXIETY DISORDER, UNSPECIFIED 02/18/2019 IRIS MAY MD Ot F43.10 POST-TRAUMATIC STRESS DISORDER, UNSPECIF 02/18/2019 IRIS MAY MD Ot K76 .0 FATTY (CHANGE OF) LIVER, NOT ELSEWHERE C 02/18/2019 IRIS MAY MD Ot R10.31 RIGHT LOWER QUADRANT PAIN 02/18/2019 IRIS MAY MD Ot Y90 .8 BLOOD ALCOHOL LEVEL OF 240 MG/100 ML OR 02/18/2019 IRIS MAY MD Ot 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 02/18/2019 IRIS MAY MD Ot Z79.899 OTHER [facility] (CURRENT) DRUG THERAPY 02/18/2019 IRIS MAY MD Ot Z87.19 PERSONAL HISTORY OF OTHER DISEASES OF 02/18/2019 IRIS MAY MD Ot D69 .6 THROMBOCYTOPENIA, UNSPECIFIED 02/18/2019 IRIS MAY MD Ot F10.229 ALCOHOL DEPENDENCE WITH INTOXICATION, UN 02/18/2019 IRIS MAY MD Ot F32 .9 MAJOR DEPRESSIVE DISORDER, SINGLE EPISOD 02/18/2019 IRIS MAY MD Ot F41 .9 ANXIETY DISORDER, UNSPECIFIED 02/18/2019 IRIS MAY MD Ot F43.10 POST-TRAUMATIC STRESS DISORDER, UNSPECIF 02/18/2019 IRIS MAY MD Ot K76 .0 FATTY (CHANGE OF) LIVER, NOT ELSEWHERE C 02/18/2019 IRIS MAY MD Ot R10.31 RIGHT LOWER QUADRANT PAIN 02/18/2019 IRIS MAY MD Ot Y90 .8 BLOOD ALCOHOL LEVEL OF 240 MG/100 ML OR 02/18/2019 IRIS MAY MD Ot 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 02/18/2019 IRIS MAY MD Ot Z79.899 OTHER [facility] (CURRENT) DRUG THERAPY 02/18/2019 IRIS MAY MD Ot Z87.19 PERSONAL HISTORY OF OTHER DISEASES OF TH 05/17/2019 ROE LUI MD Ot F10.129 ALCOHOL ABUSE WITH INTOXICATION, UNSPECI 05/17/2019 ROE LUI MD Ot F32.9 MAJOR DEPRESSIVE DISORDER, SINGLE EPISOD 05/17/2019 ROE LUI MD Ot F41.9 ANXIETY DISORDER, UNSPECIFIED 05/17/2019 ROE LUI MD Ot F43.10 POST-TRAUMATIC STRESS DISORDER, UNSPECIF 05/17/2019 ROE LUI MD Ot K21.9 GASTRO-ESOPHAGEAL REFLUX DISEASE WITHOUT 05/17/2019 ROE LUI MD Ot R45.851 SUICIDAL IDEATIONS 05/17/2019 ROE LUI MD Ot Y90.8 BLOOD ALCOHOL LEVEL OF 240 MG/100 ML OR 05/17/2019 ROE LUI MD Ot 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 6 THROMBOCYTOPENIA, UNSPECIFIED 06/27/2019 SAMINA KELLY DO B Ot E86. 0 DEHYDRATION 06/27/2019 SAMINA KELLY DO B Ot F10. 20 ALCOHOL DEPENDENCE, UNCOMPLICATED 06/27/2019 SAMINA KELLY DO B Ot F32. 9 MAJOR DEPRESSIVE DISORDER, SINGLE EPISOD 06/27/2019 SAMINA KELLY DO Ot F41. 9 ANXIETY DISORDER, UNSPECIFIED 06/27/2019 SAMINA KELLY DO Ot F43. 10 POST-TRAUMATIC STRESS DISORDER, UNSPECIF 06/27/2019 SAMINA KELLY DO B Ot K21. 9 GASTRO-ESOPHAGEAL REFLUX DISEASE WITHOUT 06/27/2019 SAMINA KELLY DO B Ot R11. 2 NAUSEA WITH VOMITING, UNSPECIFIED 06/27/2019 SAMINA KELLY DO B Ot Y90. 2 BLOOD ALCOHOL LEVEL OF 40-59 MG/100 ML 06/27/2019 SAMINA KELLY DO B Ot Z79. 82 [facility] (CURRENT) USE OF ASPIRIN 06/29/2019 SAMINA KELLY DO B Ot D69. 6 THROMBOCYTOPENIA, UNSPECIFIED 06/29/2019 SAMINA KELLY DO B Ot E86. 0 DEHYDRATION 06/29/2019 SAMINA KELLY DO B Ot F10. 20 ALCOHOL DEPENDENCE, UNCOMPLICATED 06/29/2019 SAMINA KELLY DO B Ot F32. 9 MAJOR DEPRESSIVE DISORDER, SINGLE EPISOD 06/29/2019 SAMINA KELLY DO B Ot F41. 9 ANXIETY DISORDER, UNSPECIFIED 06/29/2019 SAMINA KELLY DO Ot F43. 10 POST-TRAUMATIC STRESS DISORDER, UNSPECIF 06/29/2019 SAMINA KELLY DO B Ot K21. 9 GASTRO-ESOPHAGEAL REFLUX DISEASE WITHOUT 06/29/2019 SAMINA KELLY DO B Ot R11. 2 NAUSEA WITH VOMITING, UNSPECIFIED 06/29/2019 SAMINA KELLY DO Ot Y90. 2 BLOOD ALCOHOL LEVEL OF 40-59 MG/100 ML 06/29/2019 SAMINA KELLY DO Ot Z79. 82 [facility] (CURRENT) USE OF ASPIRIN 09/21/2019 ROE NORIEGA MD, Ot E86.0 DEHYDRATION 09/21/2019 ROE NORIEGA MD, Ot F10.10 ALCOHOL ABUSE, UNCOMPLICATED 09/21/2019 ROE NORIEGA MD Ot F32.9 MAJOR DEPRESSIVE DISORDER, SINGLE EPISOD 09/21/2019 ROE NORIEGA MD, Ot F41.9 ANXIETY DISORDER, UNSPECIFIED 09/21/2019 ORE NORIEGA MD, Ot F43.10 POST-TRAUMATIC STRESS DISORDER, UNSPECIF 09/21/2019 ROE NORIEGA MD, Ot K21.9 GASTRO-ESOPHAGEAL REFLUX DISEASE WITHOUT 09/21/2019 ROE NORIEGA MD Ot R0 5 COUGH 09/21/2019 ROE NORIEGA MD, Ot Y90.6 BLOOD ALCOHOL LEVEL OF 120-199 MG/100 ML 09/21/2019 ROE NORIEGA MD, Ot Z79.82 [facility] (CURRENT) USE OF ASPIRIN Procedures There is no data. Results Test Result Range Comprehensive metabolic panel - 10/24/16 12:54 Serum or plasma sodium measurement (moles/volume) 136 mmol/L 135-145 Serum or plasma potassium measurement (moles/volume) 3.8 mmol/L 3.6-5.0 Serum or plasma chloride measurement (moles/volume) 102 mmol/L 98-107 Carbon dioxide 18 mmol/L 21-32 Serum or plasma anion gap determination (moles/volume) 16 mmol/L 5-14 Serum or plasma urea nitrogen measurement (mass/volume ) 15 mg/dL 7-18 Serum or plasma creatinine measurement (mass/volume) 0.83 mg/dL 0.60-1.30 Serum or plasma urea nitrogen/creatinine mass ratio 18 NRG Serum or plasma creatinine measurement w ith calculation of estimated glomerular filtration rate > NRG Serum or plasma glucose measurement (mass/volume) 95 mg/dL 70-105 Serum or plasma calcium measurement (mass/volume) 8.9 mg/dL 8.5-10.1 Serum or plasma total bilirubin measurement (mass/volu me) 1.1 mg/dL 0.1-1.0 Serum or plasma alkaline phosphatase ema surement (enzymatic activity/volume) 60 U/L 40-136 Serum or plasma aspartate aminotransfera se measurement (enzymatic activity/volume) 58 U/L 5-34 Serum or plasma alanine aminotransferase measurement (enzymatic activity/volume) 48 U/L 0-55 Serum or plasma protein measurement (mass/volume) 7.2 g/dL 6.4-8.2 Serum or plasma albumin measurement (mass/volume) 4.6 g/dL 3.2-4.5 Serum or plasma ethanol measurement (mas s/volume) - 10/24/16 12:54 Serum or plasma ethanol measurement (mass/volume) 279 mg/dL <10 PT panel in platelet poor plasma by coag ulation assay - 10/24/16 12:54 Prothrombin time (PT) in platelet poor plasma by coagu lation assay 15.1 s 12.2-14.7 INR in platelet poor plasma or blood by coagulation as say 1.2 0.8-1.4 Activated partial thromboplastin time (a PTT) in platelet poor plasma bycoagulation assay - 10/24/16 12:54 Activated partial thromboplastin time (a PTT) in platelet poor plasma bycoagulation assay 32 s 24-35 Complete blood count (CBC) with automate d white blood cell (WBC) differential - 02/07/19 15:35 Blood leukocytes automated count (number/volume) 7.2 10*3/uL 4.3-11.0 Blood erythrocytes automated count (number/volume) 4.82 10*6/uL 4.35-5.85 Venous blood hemoglobin measurement (mass/volume) 15.1 g/dL 13.3-17.7 Blood hematocrit (volume fraction) 44 % 40-54 Automated erythrocyte mean corpuscular volume 91 [ foz_us] 80-99 Automated erythrocyte mean corpuscular h emoglobin (mass per erythrocyte) 31 pg 25-34 Automated erythrocyte mean corpuscular h emoglobin concentration measurement (mass/volume) 34 g/dL 32-36 Automated erythrocyte distribution width ratio 15. 8 % 10.0- 14.5 Automated blood platelet count [...] 10*3 1.0-4.0 Blood monocytes automated count (number/volume) 0. 5 10*3 0.0-1.0 Automated eosinophil count 0.1 10*3/uL 0 .0-0.3 Automated blood basophil count (count/volume) 0.2 10*3/uL 0.0-0.1 Comprehensive metabolic panel - 02/07/19 15:35 Serum or plasma sodium measurement (moles/volume) 138 mmol/L 135-145 Serum or plasma potassium measurement (moles/volume) 4.2 mmol/L 3.6-5.0 Serum or plasma chloride measurement (moles/volume) 92 mmol/L 98-107 Carbon dioxide 23 mmol/L 21-32 Serum or plasma anion gap determination (moles/volume) 23 mmol/L 5-14 Serum or plasma urea nitrogen measurement (mass/volume ) 12 mg/dL 7-18 Serum or plasma creatinine measurement (mass/volume) 0.81 mg/dL 0.60-1.30 Serum or plasma urea nitrogen/creatinine mass ratio 15 NRG Serum or plasma creatinine measurement w ith calculation of estimated glomerular filtration rate > NRG Serum or plasma glucose measurement (mass/volume) 113 mg/dL 70-105 Serum or plasma calcium measurement (mass/volume) 8.6 mg/dL 8.5-10.1 Serum or plasma total bilirubin measurement (mass/volu me) 1.2 mg/dL 0.1-1.0 Serum or plasma alkaline phosphatase ema surement (enzymatic activity/volume) 79 U/L 40-136 Serum or plasma aspartate aminotransfera se measurement (enzymatic activity/volume) 157 U/L 5-34 Serum or plasma alanine aminotransferase measurement (enzymatic activity/volume) 110 U/L 0-55 Serum or plasma protein measurement (mass/volume) 7.4 g/dL 6.4-8.2 Serum or plasma albumin measurement (mass/volume) 4.9 g/dL 3.2-4.5 Magnesium - 02/07/19 15:35 Magnesium 1.9 mg/dL 1.8-2.4 Lipase - 04/29/19 15:35 Lipase 81 U/L 8-78 Serum or plasma ethanol measurement (mas s/volume) - 02/07/19 15:35 Serum or plasma ethanol measurement (mass/volume) 424 mg/dL <10 Complete urinalysis with reflex to cultu re - 02/07/19 17:15 Urine color determination YELLOW NRG Urine clarity determination CLEAR NR G Urine pH measurement by test strip 6.0 5-9 Specific gravity of urine by test strip <= 1.016-1.022 Urine protein assay by test strip, semi-quantitative NEGATIVE NEGATIVE Urine glucose detection by automated test strip NE GATIVE NEGATIVE Erythrocytes detection in urine sediment by light micr oscopy NEGATIVE NEGATIVE Urine ketones detection by automated test strip 1+ NEGATIVE Urine nitrite detection by test strip NEGATIVE NEGATIVE Urine total bilirubin detection by test strip NEGA TIVE NEGATIVE Urine urobilinogen measurement by automated test strip (mass/volume) 0.2 mg/dL NORMAL Urine leukocyte esterase detection by dipstick NEG ATIVE NEGATIVE Automated urine sediment erythrocyte cou nt by microscopy (number/high power field) NONE NRG Automated urine sediment leukocyte count by microscopy (number/high power field) [HPF] NRG Bacteria detection in urine sediment by light microsco py NEGATIVE NRG Squamous epithelial cells detection in u rine sediment by light microscopy 0-2 NRG Crystals detection in urine sediment by light microsco py NONE NRG Casts detection in urine sediment by light microscopy NONE NRG Mucus detection in urine sediment by light microscopy NEGATIVE NRG Complete urinalysis with reflex to culture NO NRG Urine drug screening test - 02/07/19 17: 15 Urine phencyclidine detection by screening method NEGATIVE NEGATIVE Urine benzodiazepines detection by screening method NEGATIVE NEGATIVE Urine cocaine detection NEGATIVE NEGATI VE Urine amphetamines detection by screening method N EGATIVE NEGATIVE Urine methamphetamine detection by screening method NEGATIVE NEGATIVE Urine cannabinoids detection by screening method N EGATIVE NEGATIVE Urine opiates detection by screening method NEGATI VE NEGATIVE Urine barbiturates detection NEGATIVE N EGATIVE Screening urine tricyclic antidepressants detection NEGATIVE NEGATIVE Urine methadone detection by screening method NEGA TIVE NEGATIVE Urine oxycodone detection NEGATIVE NEGA TIVE Urine propoxyphene detection NEGATIVE N EGATIVE Methicillin resistant Staphylococcus aur eus (MRSA) screening culture - 02/07/19 23:53 Methicillin resistant Staphylococcus aureus (MRSA) scr eening culture NEG NRG Complete blood count (CBC) with automate d white blood cell (WBC) differential - 02/08/19 03:50 Blood leukocytes automated count (number/volume) 4.1 10*3/uL 4.3-11.0 Blood erythrocytes automated count (number/volume) 4.29 10*6/uL 4.35-5.85 Venous blood hemoglobin measurement (mass/volume) 13.3 g/dL 13.3-17.7 Blood hematocrit (volume fraction) 39 % 40-54 Automated erythrocyte mean corpuscular volume 91 [ foz_us] 80-99 Automated erythrocyte mean corpuscular h emoglobin (mass per erythrocyte) 31 pg 25-34 Automated erythrocyte mean corpuscular h emoglobin concentration measurement (mass/volume) 34 g/dL 32-36 Automated erythrocyte distribution width ratio 16. 2 % 10.0- 14.5 Automated blood platelet count (count/volume) 56 1 0*3/uL 130-400 Automated blood platelet mean volume measurement 9.5 [...] 10*3 1.0-4.0 Blood monocytes automated count (number/volume) 0. 4 10*3 0.0-1.0 Automated eosinophil count 0.1 10*3/uL 0 .0-0.3 Automated blood basophil count (count/volume) 0.1 10*3/uL 0.0-0.1 Whole blood basic metabolic panel - 01/12 03:50 Serum or plasma sodium measurement (moles/volume) 140 mmol/L 135-145 Serum or plasma potassium measurement (moles/volume) 3.6 mmol/L 3.6-5.0 Serum or plasma chloride measurement (moles/volume) 102 mmol/L 98-107 Carbon dioxide 21 mmol/L 21-32 Serum or plasma anion gap determination (moles/volume) 17 mmol/L 5-14 Serum or plasma urea nitrogen measurement (mass/volume ) 7 mg/dL 7-18 Serum or plasma creatinine measurement (mass/volume) 0.74 mg/dL 0.60-1.30 Serum or plasma urea nitrogen/creatinine mass ratio 9 NRG Serum or plasma creatinine measurement w ith calculation of estimated glomerular filtration rate > NRG Serum or plasma glucose measurement (mass/volume) 74 mg/dL 70-105 Serum or plasma calcium measurement (mass/volume) 8.6 mg/dL 8.5-10.1 Serum or plasma phosphate measurement (m ass/volume) - 02/08/19 03:50 Serum or plasma phosphate measurement (mass/volume) 2.8 mg/dL 2.3-4.7 Magnesium - 02/08/19 03:50 Magnesium 1.9 mg/dL 1.8-2.4 Pathologist review of blood test by comm ent - 02/08/19 03:50 Blood leukocytes automated count (number/volume) 4.2 10*3/uL 4.3-11.0 Blood erythrocytes automated count (number/volume) 4.32 10*6/uL 4.35-5.85 Venous blood hemoglobin measurement (mass/volume) 13.2 g/dL 13.3-17.7 Blood hematocrit (volume fraction) 40 % 40-54 Automated erythrocyte mean corpuscular volume 91 [ foz_us] 80-99 Automated erythrocyte mean corpuscular h emoglobin (mass per erythrocyte) 31 pg 25-34 Automated erythrocyte mean corpuscular h emoglobin concentration measurement (mass/volume) 33 g/dL 32-36 Automated erythrocyte distribution width ratio 16. 3 % 10.0- 14.5 Automated blood platelet count (count/volume) 66 1 0*3/uL 130-400 Automated blood platelet mean volume measurement 10.0 [...] 10*3 1.0-4.0 Blood monocytes automated count (number/volume) 0. 4 10*3 0.0-1.0 Automated eosinophil count 0.1 10*3/uL 0 .0-0.3 Automated blood basophil count (count/volume) 0.1 10*3/uL 0.0-0.1 Manual blood segmented neutrophils/100 leukocytes 43 % NRG Blood band neutrophils/100 leukocytes 2 % NRG Manual blood lymphocytes/100 leukocytes 41 % NRG Manual eosinophils/100 leukocytes in nose 2 % NRG Manual blood basophils/100 leukocytes 1 % NRG Blood smudge cells detection by light microscopy S LIGHT NRG Blood lymphocytes variant/100 leukocytes 6 % NRG Blood anisocytosis detection by light microscopy S LIGHT NRG Blood reticulocytes count (number/volume) 42 10*9/ L 24-90 Blood reticulocytes/100 erythrocytes 0.96 % 0.50-2.40 PT panel in platelet poor plasma by coag ulation assay - 02/08/19 03:50 Prothrombin time (PT) in platelet poor plasma by coagu lation assay 15.6 s 12.2-14.7 INR in platelet poor plasma or blood by coagulation as say 1.2 0.8-1.4 Activated partial thromboplastin time (a PTT) in platelet poor plasma bycoagulation assay - 02/08/19 03:50 Activated partial thromboplastin time (a PTT) in platelet poor plasma bycoagulation assay 31 s 24-35 Acute hepatitis panel - 02/08/19 03:50 Confirmatory quantitative serum or plasm a hepatitis B virus surface antigen measurement Non-Reactive Non-Reactive Hepatitis A virus IgM antibody assay Non-Reactive Non- Reactive Hepatitis B virus core IgM antibody assay Non-Reac tive Non- Reactive Serum hepatitis C virus antibody detection Non-Annamaria ctive Non-Reactive Complete blood count (CBC) with automate d white blood cell (WBC) differential - 05/16/19 15:15 Blood leukocytes automated count (number/volume) 12.1 10*3/uL 4.3-11.0 Blood erythrocytes automated count (number/volume) 4.84 10*6/uL 4.35-5.85 Venous blood hemoglobin measurement (mass/volume) 14.4 g/dL 13.3-17.7 Blood hematocrit (volume fraction) 42 % 40-54 Automated erythrocyte mean corpuscular volume 87 [ foz_us] 80-99 Automated erythrocyte mean corpuscular h emoglobin (mass per erythrocyte) 30 pg 25-34 Automated erythrocyte mean corpuscular h emoglobin concentration measurement (mass/volume) 34 g/dL 32-36 Automated erythrocyte distribution width ratio 14. 1 % 10.0- 14.5 Automated blood platelet count (count/volume) 145 10*3/uL 130-400 Automated blood platelet mean volume measurement 9.8 [foz_us] 7.4-10.4 Automated blood neutrophils/100 leukocytes 49 % 42-75 Automated blood lymphocytes/100 leukocytes 46 % 12-44 Blood monocytes/100 leukocytes 3 % 0-12 Automated blood eosinophils/100 leukocytes 2 % 0-10 Automated blood basophils/100 leukocytes 1 % 0-10 Blood neutrophils automated count (number/volume) 5.9 10*3 1.8-7.8 Blood lymphocytes automated count (number/volume) 5.5 10*3 1.0-4.0 Blood monocytes automated count (number/volume) 0. 4 10*3 0.0-1.0 Automated eosinophil count 0.2 10*3/uL 0 .0-0.3 Automated blood basophil count (count/volume) 0.1 10*3/uL 0.0-0.1 Comprehensive metabolic panel - 05/16/19 15:15 Serum or plasma sodium measurement (moles/volume) 142 mmol/L 135-145 Serum or plasma potassium measurement (moles/volume) 4.1 mmol/L 3.6-5.0 Serum or plasma chloride measurement (moles/volume) 101 mmol/L 98-107 Carbon dioxide 20 mmol/L 21-32 Serum or plasma anion gap determination (moles/volume) 21 mmol/L 5-14 Serum or plasma urea nitrogen measurement (mass/volume ) 12 mg/dL 7-18 Serum or plasma creatinine measurement (mass/volume) 0.86 mg/dL 0.60-1.30 Serum or plasma urea nitrogen/creatinine mass ratio 14 NRG Serum or plasma creatinine measurement w ith calculation of estimated glomerular filtration rate > NRG Serum or plasma glucose measurement (mass/volume) 87 mg/dL 70-105 Serum or plasma calcium measurement (mass/volume) 8.9 mg/dL 8.5-10.1 Serum or plasma total bilirubin measurement (mass/volu me) 0.6 mg/dL 0.1-1.0 Serum or plasma alkaline phosphatase ema surement (enzymatic activity/volume) 54 U/L 40-136 Serum or plasma aspartate aminotransfera se measurement (enzymatic activity/volume) 27 U/L 5-34 Serum or plasma alanine aminotransferase measurement (enzymatic activity/volume) 20 U/L 0-55 Serum or plasma protein measurement (mass/volume) 7.3 g/dL 6.4-8.2 Serum or plasma albumin measurement (mass/volume) 4.6 g/dL 3.2-4.5 THYROID STIMULATING HORMONE - 05/16/19 1 5:15 THYROID STIMULATING HORMONE 1.08 u[iU]/mL 0.35-4.94 Serum or plasma salicylates measurement (mass/volume) - 05/16/19 15:15 Serum or plasma salicylates measurement (mass/volume) < mg/dL 5.0-20.0 Serum or plasma acetaminophen measuremen t (mass/volume) - 05/16/19 15:15 Serum or plasma acetaminophen measurement (mass/volume ) < ug/mL 10-30 Serum or plasma ethanol measurement (mas s/volume) - 05/16/19 15:15 Serum or plasma ethanol measurement (mass/volume) 322 mg/dL <10 Urine drug screening test - 05/16/19 15: 20 Urine phencyclidine detection by screening method NEGATIVE NEGATIVE Urine benzodiazepines detection by screening method NEGATIVE NEGATIVE Urine cocaine detection NEGATIVE NEGATI VE Urine amphetamines detection by screening method N EGATIVE NEGATIVE Urine methamphetamine detection by screening method NEGATIVE NEGATIVE Urine cannabinoids detection by screening method N EGATIVE NEGATIVE Urine opiates detection by screening method NEGATI VE NEGATIVE Urine barbiturates detection NEGATIVE N EGATIVE Screening urine tricyclic antidepressants detection NEGATIVE NEGATIVE Urine methadone detection by screening method NEGA TIVE NEGATIVE Urine oxycodone detection NEGATIVE NEGA TIVE Urine propoxyphene detection NEGATIVE N EGATIVE Serum or plasma ethanol measurement (mas s/volume) - 05/16/19 19:58 Serum or plasma ethanol measurement (mass/volume) 220 mg/dL <10 Serum or plasma ethanol measurement (mas s/volume) - 05/17/19 00:20 Serum or plasma ethanol measurement (mass/volume) 140 mg/dL <10 Serum or plasma ethanol measurement (mas s/volume) - 05/17/19 07:15 Serum or plasma ethanol measurement (mass/volume) 18 mg/dL <10 Complete blood count (CBC) with automate d white blood cell (WBC) differential - 06/22/19 23:55 Blood leukocytes automated count (number/volume) 2.9 10*3/uL 4.3-11.0 Blood erythrocytes automated count (number/volume) 4.35 10*6/uL 4.35-5.85 Venous blood hemoglobin measurement (mass/volume) 13.2 g/dL 13.3-17.7 Blood hematocrit (volume fraction) 39 % 40-54 Automated erythrocyte mean corpuscular volume 89 [ foz_us] 80-99 Automated erythrocyte mean corpuscular h emoglobin (mass per erythrocyte) 30 pg 25-34 Automated erythrocyte mean corpuscular h emoglobin concentration measurement (mass/volume) 34 g/dL 32-36 Automated erythrocyte distribution width ratio 14. 9 % 10.0- 14.5 Automated blood platelet count (count/volume) 38 1 0*3/uL 130-400 Automated blood platelet mean volume measurement 10.7 [foz_us] 7.4-10.4 Automated blood neutrophils/100 leukocytes 64 % 42-75 Automated blood lymphocytes/100 leukocytes 24 % 12-44 Blood monocytes/100 leukocytes 9 % 0-12 Automated blood eosinophils/100 leukocytes 2 % 0-10 Automated blood basophils/100 leukocytes 1 % 0-10 Blood neutrophils automated count (number/volume) 1.9 10*3 1.8-7.8 Blood lymphocytes automated count (number/volume) 0.7 10*3 1.0-4.0 Blood monocytes automated count (number/volume) 0. 3 10*3 0.0-1.0 Automated eosinophil count 0.1 10*3/uL 0 .0-0.3 Automated blood basophil count (count/volume) 0.0 10*3/uL 0.0-0.1 Comprehensive metabolic panel - 06/22/19 23:55 Serum or plasma sodium measurement (moles/volume) 133 mmol/L 135-145 Serum or plasma potassium measurement (moles/volume) 3.8 mmol/L 3.6-5.0 Serum or plasma chloride measurement (moles/volume) 91 mmol/L 98-107 Carbon dioxide 19 mmol/L 21-32 Serum or plasma anion gap determination (moles/volume) 23 mmol/L 5-14 Serum or plasma urea nitrogen measurement (mass/volume ) 9 mg/dL 7-18 Serum or plasma creatinine measurement (mass/volume) 0.66 mg/dL 0.60-1.30 Serum or plasma urea nitrogen/creatinine mass ratio 14 NRG Serum or plasma creatinine measurement w ith calculation of estimated glomerular filtration rate > NRG Serum or plasma glucose measurement (mass/volume) 98 mg/dL 70-105 Serum or plasma calcium measurement (mass/volume) 9.0 mg/dL 8.5-10.1 Serum or plasma total bilirubin measurement (mass/volu me) 1.3 mg/dL 0.1-1.0 Serum or plasma alkaline phosphatase ema surement (enzymatic activity/volume) 73 U/L 40-136 Serum or plasma aspartate aminotransfera se measurement (enzymatic activity/volume) 97 U/L 5-34 Serum or plasma alanine aminotransferase measurement (enzymatic activity/volume) 85 U/L 0-55 Serum or plasma protein measurement (mass/volume) 6.7 g/dL 6.4-8.2 Serum or plasma albumin measurement (mass/volume) 4.5 g/dL 3.2-4.5 CALCIUM CORRECTED 8.6 mg/dL 8.5-10.1 Magnesium - 06/22/19 23:55 Magnesium 1.6 mg/dL 1.6-2.4 Lipase - 06/22/19 23:55 Lipase 87 U/L 8-78 Serum or plasma ethanol measurement (mas s/volume) - 06/22/19 23:55 Serum or plasma ethanol measurement (mass/volume) 40 mg/dL <10 Complete urinalysis with reflex to cultu re - 06/23/19 01:00 Urine color determination YELLOW NRG Urine clarity determination CLEAR NR G Urine pH measurement by test strip 7.0 5-9 Specific gravity of urine by test strip 1.010 1.016-1.022 Urine protein assay by test strip, semi-quantitative NEGATIVE NEGATIVE Urine glucose detection by automated test strip NE GATIVE NEGATIVE Erythrocytes detection in urine sediment by light micr oscopy NEGATIVE NEGATIVE Urine ketones detection by automated test strip 1+ NEGATIVE Urine nitrite detection by test strip NEGATIVE NEGATIVE Urine total bilirubin detection by test strip NEGA TIVE NEGATIVE Urine urobilinogen measurement by automated test strip (mass/volume) 0.2 mg/dL NORMAL Urine leukocyte esterase detection by dipstick NEG ATIVE NEGATIVE Automated urine sediment erythrocyte cou nt by microscopy (number/high power field) [HPF] NRG Automated urine sediment leukocyte count by microscopy (number/high power field) [HPF] NRG Bacteria detection in urine sediment by light microsco py NEGATIVE NRG Squamous epithelial cells detection in u rine sediment by light microscopy RARE NRG Crystals detection in urine sediment by light microsco py NONE NRG Casts detection in urine sediment by light microscopy NONE NRG Mucus detection in urine sediment by light microscopy SMALL NRG Complete urinalysis with reflex to culture NO NRG Blood CBC with ordered manual differenti al panel - 09/13/19 21:39 Blood leukocytes automated count (number/volume) 4.5 10*3/uL 4.3-11.0 Blood erythrocytes automated count (number/volume) 4.72 10*6/uL 4.35-5.85 Venous blood hemoglobin measurement (mass/volume) 14.4 g/dL 13.3-17.7 Blood hematocrit (volume fraction) 42 % 40-54 Automated erythrocyte mean corpuscular volume 89 [ foz_us] 80-99 Automated erythrocyte mean corpuscular h emoglobin (mass per erythrocyte) 31 pg 25-34 Automated erythrocyte mean corpuscular h emoglobin concentration measurement (mass/volume) 34 g/dL 32-36 Automated erythrocyte distribution width ratio 14. 5 % 10.0- 14.5 Automated blood platelet count (count/volume) 61 1 0*3/uL 130-400 Automated blood platelet mean volume measurement 10.6 [foz_us] 7.4-10.4 Automated blood neutrophils/100 leukocytes 63 % 42-75 Automated blood lymphocytes/100 leukocytes 29 % 12-44 Blood monocytes/100 leukocytes 3 % NRG Automated blood eosinophils/100 leukocytes 1 % 0-10 Automated blood basophils/100 leukocytes 1 % 0-10 Blood neutrophils automated count (number/volume) 2.9 10*3 1.8-7.8 Blood lymphocytes automated count (number/volume) 1.3 10*3 1.0-4.0 Blood monocytes automated count (number/volume) 0. 3 10*3 0.0-1.0 Automated eosinophil count 0.1 10*3/uL 0 .0-0.3 Automated blood basophil count (count/volume) 0.0 10*3/uL 0.0-0.1 Manual blood segmented neutrophils/100 leukocytes 62 % NRG Blood band neutrophils/100 leukocytes 3 % NRG Manual blood lymphocytes/100 leukocytes 29 % NRG Manual eosinophils/100 leukocytes in nose 2 % NRG Manual blood basophils/100 leukocytes 1 % NRG Comprehensive metabolic panel - 09/13/19 21:39 Serum or plasma sodium measurement (moles/volume) 136 mmol/L 135-145 Serum or plasma potassium measurement (moles/volume) 4.5 mmol/L 3.6-5.0 Serum or plasma chloride measurement (moles/volume) 94 mmol/L 98-107 Carbon dioxide 15 mmol/L 21-32 Serum or plasma anion gap determination (moles/volume) 27 mmol/L 5-14 Serum or plasma urea nitrogen measurement (mass/volume ) 17 mg/dL 7-18 Serum or plasma creatinine measurement (mass/volume) 0.79 mg/dL 0.60-1.30 Serum or plasma urea nitrogen/creatinine mass ratio 22 NRG Serum or plasma creatinine measurement w ith calculation of estimated glomerular filtration rate > NRG Serum or plasma glucose measurement (mass/volume) 79 mg/dL 70-105 Serum or plasma calcium measurement (mass/volume) 9.8 mg/dL 8.5-10.1 Serum or plasma total bilirubin measurement (mass/volu me) 2.0 mg/dL 0.1-1.0 Serum or plasma alkaline phosphatase ema surement (enzymatic activity/volume) 60 U/L 40-136 Serum or plasma aspartate aminotransfera se measurement (enzymatic activity/volume) 108 U/L 5-34 Serum or plasma alanine aminotransferase measurement (enzymatic activity/volume) 91 U/L 0-55 Serum or plasma protein measurement (mass/volume) 8.2 g/dL 6.4-8.2 Serum or plasma albumin measurement (mass/volume) 5.4 g/dL 3.2-4.5 Serum or plasma ethanol measurement (mas s/volume) - 09/13/19 21:39 Serum or plasma ethanol measurement (mass/volume) 134 mg/dL <10 Serum or plasma ethanol measurement (mas s/volume) - 11/20/19 14:50 Serum or plasma ethanol measurement (mass/volume) 350 mg/dL <10 Encounters ACCT No. Visit Date/Time Discharge Status Pt. Type Provider Facility Loc./Unit Complaint [id number] 11/20/2019 13:39:00 020 16:05:00 DIS Emergency ROSETTE GARAY DO [facility] ER FS INTOXICATED - BROUGHT I N BY [facility] [id number] 09/13/2019 21:03:00 22:46:00 DIS Outpatient ROE NORIEGA MD [facility] ER FS CONGESTION [id number] 06/22/2019 23:34:00 01:30:00 DIS Outpatient SAMINA KELLY DO [facility] ER FS VOMITING [id number] 05/16/2019 14:31:00 11:42:00 DIS Emergency HU CASTANEDA, ROE Benites [facility] ER FS ALCOHOL INTOXICATION [id number] 02/07/2019 23:33:00 16:10:00 DIS Inpatient LALO CASTANEDA, IRIS Chirinos [facility] 4TH ETOH INTOXICATION/ABUSE ; ABD PAIN [id number] 10/24/2016 12:00:00 017 17:51:00 DIS Inpatient URIAH HAMILTON DO, V [facility] 4TH ALCOHOL DETOX
== END 2019-11-20 16:05 | disposition home or self-care (01) ==
LOC: EDUNIT# 13:37 → ER FS 13:39
DX: F10.239 Alcohol dependence with withdrawal, unspecified (principal); F41.9 Anxiety disorder, unspecified; F32.9 Major depressive disorder, single episode, unspecified; Z79.82 Long term (current) use of aspirin
CPT/HCPCS: 36415; 80320

== ENCOUNTER 2019-12-06 12:01 | Emergency (ER) | payer OTHER ==
[2019-12-06] MEDS ORDERED: NS IV 1000 ML 1,000 ML IV SCH ×2 (12:15→13:30)
--- NOTE | 2019-12-06 12:29 | ED General ---
General Chief Complaint: Oral/Throat Problems Stated Complaint: POSSIBLE FACIAL INFECTION Source of Information: Patient, EMS History of Present Illness Date Seen by Provider: Dec 06, 2019 Time Seen by Provider: 12:10 Initial Comments The patient is a 59-year-old male who presents via EMS for evaluation of dental pain. The patient is a known alcoholic and states that he has been drinking last night and today. He lives alone. [facility] and he was told to be evaluated in the emergency department. The patient was noted to be tachycardic in the wrist concern over whether he could be septic however the patient denies any specific infection source other than the dental pain. He is alert and oriented 4, calm, and appears to be in no distress upon arrival. He does smell strongly of EtOH. Timing/Duration: 1 Day Severity: Mild Allergies and Home Medications Allergies Coded Allergies: No Known Drug Allergies (Unverified , 02/07/19) Home Medications Aspirin 81 Mg Tablet.dr, 81 MG PO DAILY PRN for CHEST DISCOMFORT, (Reported) Calcium Carbonate 200 Mg Tab.chew, 200 MG PO QID PRN for INDIGESTION, (Reported) Lisinopril 10 Mg Tablet, 10 MG PO HS, (Reported) Lorazepam 0.5 Mg Tablet, 0.5 MG PO DAILY PRN for ANXIETY, (Reported) Metoprolol Tartrate 25 Mg Tablet, 12.5 MG PO BID, (Reported) TAKES 1/2 (25MG) TABLET Patient Home Medication List Home Medication List Reviewed: Yes Review of Systems Review of Systems Constitutional: no symptoms reported EENTM: no symptoms reported, dental problems Respiratory: no symptoms reported Cardiovascular: no symptoms reported Gastrointestinal: no symptoms reported Genitourinary: no symptoms reported Musculoskeletal: no symptoms reported Skin: no symptoms reported Psychiatric/Neurological: No Symptoms Reported Hematologic/Lymphatic: No Symptoms Reported Immunological/Allergic: no symptoms reported All Other Systems Reviewed Negative Unless Noted: Yes Past Lkvewor-Ucvare-Bistsc Hx Past Med/Social Hx: Reviewed Nursing Past Med/Soc Hx Patient Social History Alcohol Use: Regular Use Number of Drinks Today: FF Alcohol Beverage of Choice: [place], Vodka Recreational Drug Use: No Smoking Status: Never a Smoker 2nd Hand Smoke Exposure: No Recent Foreign Travel: No Contact w/Someone Who Travel: No Recent Hopitalizations: No Physical Abuse: No Sexual Abuse: No Mistreated: No Fear: No Immunizations Up To Date Tetanus Booster (TDap): Unknown PED Vaccines UTD: No Seasonal Allergies Seasonal Allergies: No Past Medical History Respiratory: No Currently Using CPAP: No Currently Using BIPAP: No Cardiac: Yes Angina Neurological: No Sexually Transmitted Disease: No HIV/AIDS: No Genitourinary: No Gastrointestinal: Yes (GERD) Musculoskeletal: No Endocrine: No HEENT: No Loss of Vision: Denies Hearing Impairment: Denies Cancer: No Did You Recieve Any Treatments: No Psychosocial: Yes Anxiety, PTSD, Depression Integumentary: No Blood Disorders: No Adverse Reaction/Blood Tranf: No Physical Exam Vital Signs Vital Signs - First Documented 12/06/19 12:05 Temp 36.7 Pulse 111 Resp 18 B/P (MAP) 145/103 (117) Pulse Ox 96 O2 Delivery Room Air Capillary Refill : Height, Weight, BMI Height: 6'0" Weight: 230lbs. 0.0oz. 104.940726ah; 31.00 BMI Method:Stated General Appearance: No Apparent Distress, WD/WN, Other (poor hygiene, smells of ETOH) HEENT: PERRL/EOMI, Pharynx Normal Neck: Full Range of Motion, Non Tender, Supple Respiratory: Chest Non Tender, Lungs Clear, Normal Breath Sounds, No Accessory Muscle Use Cardiovascular: No Edema, No JVD, No Murmur, Tachycardia Gastrointestinal: Normal Bowel Sounds, No Organomegaly, Soft Extremity: Normal Capillary Refill, Normal Inspection, Non Tender Neurologic/Psychiatric: Alert, Oriented x3, No Motor/Sensory Deficits, Normal Mood/Affect, Other (answering questions appropriately, not slurring words) Skin: Normal Color, Warm/Dry Focused Exam Lactate Level 12/06/19 12:25: Lactic Acid Level 2.48*H 12/06/19 14:10: Lactic Acid Level 2.14*H Lactic Acid Level Laboratory Tests Test 12/06/19 12:25 12/06/19 14:10 Lactic Acid Level 2.48 MMOL/L (0.50-2.00) *H 2.14 MMOL/L (0.50-2.00) *H Progress/Results/Core Measures Suspected Sepsis SIRS Temperature: Pulse: Respiratory Rate: Laboratory Tests 12/06/19 12:25: White Blood Count 4.6 Blood Pressure / Mean: 12/06/19 12:25: Lactic Acid Level 2.48*H 12/06/19 14:10: Lactic Acid Level 2.14*H Laboratory Tests 12/06/19 12:25: Creatinine 0.72, Platelet Count 61L, Total Bilirubin 1.5H Results/Orders Lab Results Laboratory Tests Test 12/06/19 12:23 12/06/19 12:25 12/06/19 14:10 Range/Units Urine Color KESHA H Urine Clarity CLEAR Urine pH 6.0 5-9 Urine Specific Deal 1.015 L 1.016-1.022 Urine Protein TRACE H NEGATIVE Urine Glucose (UA) NEGATIVE NEGATIVE Urine Ketones 1+ H NEGATIVE Urine Nitrite NEGATIVE NEGATIVE Urine Bilirubin 1+ H NEGATIVE Urine Urobilinogen 1.0 < = 1.0 MG/DL Urine Leukocyte Esterase NEGATIVE NEGATIVE Urine RBC (Auto) TRACE H NEGATIVE Urine RBC RARE /HPF Urine WBC 0-2 /HPF Urine Squamous Epithelial Cells RARE /HPF Urine Crystals NONE /LPF Urine Bacteria NEGATIVE /HPF Urine Casts NONE /LPF Urine Mucus MODERATE H /LPF Urine Culture Indicated NO White Blood Count 4.6 4.3-11.0 10^3/uL Red Blood Count 4.72 4.35-5.85 10^6/uL Hemoglobin 14.4 13.3-17.7 G/DL Hematocrit 42 40-54 % Mean Corpuscular Volume 88 80-99 FL Mean Corpuscular Hemoglobin 31 25-34 PG Mean Corpuscular Hemoglobin Concent 35 32-36 G/DL Red Cell Distribution Width 14.9 H 10.0-14.5 % Platelet Count 61 L 130-400 10^3/uL Mean Platelet Volume 10.5 H 7.4-10.4 FL Neutrophils (%) (Auto) 54 42-75 % Lymphocytes (%) (Auto) 36 12-44 % Monocytes (%) (Auto) 7 0-12 % Eosinophils (%) (Auto) 2 0-10 % Basophils (%) (Auto) 1 0-10 % Neutrophils # (Auto) 2.5 1.8-7.8 X 10^3 Lymphocytes # (Auto) 1.6 1.0-4.0 X 10^3 Monocytes # (Auto) 0.3 0.0-1.0 X 10^3 Eosinophils # (Auto) 0.1 0.0-0.3 10^3/uL Basophils # (Auto) 0.0 0.0-0.1 10^3/uL Sodium Level 137 135-145 MMOL/L Potassium Level 3.3 L 3.6-5.0 MMOL/L Chloride Level 94 L 98-107 MMOL/L Carbon Dioxide Level 20 L 21-32 MMOL/L Anion Gap 23 H 5-14 MMOL/L Blood Urea Nitrogen 11 7-18 MG/DL Creatinine 0.72 0.60-1.30 MG/DL Estimat Glomerular Filtration Rate > 60 BUN/Creatinine Ratio 15 Glucose Level 120 H 70-105 MG/DL Lactic Acid Level 2.48 *H 2.14 *H 0.50-2.00 MMOL/L Calcium Level 9.5 8.5-10.1 MG/DL Corrected Calcium 8.5-10.1 MG/DL Total Bilirubin 1.5 H 0.1-1.0 MG/DL Aspartate Amino Transf (AST/SGOT) 120 H 5-34 U/L Alanine Aminotransferase (ALT/SGPT) 108 H 0-55 U/L Alkaline Phosphatase 74 40-136 U/L Total Protein 8.0 6.4-8.2 GM/DL Albumin 5.3 H 3.2-4.5 GM/DL My Orders Orders - ROBIN HAAS DO Cbc With Automated Diff (12/06/19 12:13) Comprehensive Metabolic Panel (12/06/19 12:13) Lactic Acid Analyzer (12/06/19 12:13) Ed Iv/Invasive Line Start (12/06/19 12:13) Ns Iv 1000 Ml (Sodium Chloride 0.9%) (12/06/19 12:15) Urinalysis (12/06/19 12:16) Potassium Chloride (Tablet) (K Dur Table (12/06/19 13:30) Ns Iv 1000 Ml (Sodium Chloride 0.9%) (12/06/19 13:30) Medications Given in ED Current Medications Medications Dose Ordered Sig/Regino Route Start Time Stop Time Status Last Admin Dose Admin Potassium Chloride 40 meq ONCE ONCE PO 12/06/19 13:30 12/06/19 13:31 DC 12/06/19 13:31 40 MEQ Vital Signs/I&O 12/06/19 12:05 Temp 36.7 Pulse 111 Resp 18 B/P (MAP) 145/103 (117) Pulse Ox 96 O2 Delivery Room Air Capillary Refill : Progress Note : Progress Note @1455 - Patient updated on lab and imaging results. His initial lactate was noted to be elevated. His second lactic acid improved. The patient is clinically somewhat dehydrated and he is an alcoholic and his lactic acid is likely elev ated because of alcoholic ketoacidosis. He has no sign of infection on physical exam and his teeth appear to be a chronic problem. He has no fever or elevated white blood cell count. There is no evidence to suggest sepsis at this time. Advised the patient follow up with a dentist for dental extraction and with his physician or rehabilitation facility to help with his alcohol dependence. The patient expresses verbal understanding and agreement with the plan and is stable for discharge. Departure Impression Primary Impression: Alcoholic ketoacidosis Additional Impressions: Dental caries Dehydration Disposition: 01 HOME, SELF-CARE Condition: Stable Departure-Patient Inst. Decision time for Depature: 14:56 Referrals: [facility] [place]ructions: Alcohol Abuse and Alcoholism (DC), Ketoacidosis That Is Not Caused by Diabetes (DC), Dental Pain Add. Discharge Instructions: Stop abusing alcohol. Follow-up with your doctor in the next 2-3 days. Return to the emergency department for new or worsening symptoms. Prescribed antibiotic as directed. Scripts Penicillin V Potassium (Penicillin V Potassium) 500 Mg Tablet 500 MG PO Q6H for 10 Days, #40 TAB Prov: ROBIN HAAS DO 12/06/19 ROBIN HAAS DO Dec 06, 2019 12:29
[2019-12-06 13:06] LABS: HEMATOCRIT 42 % (40-54); HEMOGLOBIN 14.4 G/DL (13.3-17.7); MEAN CORPUSCULAR HEMOGLOBIN 31 PG (25-34); MEAN CORPUSCULAR VOLUME 88 FL (80-99); WHITE BLOOD COUNT 4.6 10^3/uL (4.3-11.0)
[2019-12-06 13:07] LABS: BASOPHILS % (AUTO) 1 % (0-10); EOSINOPHILS # (AUTO) 0.1 10^3/uL (0.0-0.3); EOSINOPHILS % (AUTO) 2 % (0-10); LYMPHOCYTES # (AUTO) 1.6 X 10^3 (1.0-4.0); LYMPHOCYTES % (AUTO) 36 % (12-44); MEAN CORPUSCULAR HGB CONC 35 G/DL (32-36); MEAN PLATELET VOLUME 10.5 FL (7.4-10.4); MONOCYTES # (AUTO) 0.3 X 10^3 (0.0-1.0); MONOCYTES % (AUTO) 7 % (0-12); NEUTROPHILS # (AUTO) 2.5 X 10^3 (1.8-7.8); NEUTROPHILS % (AUTO) 54 % (42-75); PLATELET COUNT 61 10^3/uL (130-400); RED CELL DISTRIBUTION WIDTH 14.9 % (10.0-14.5)
[2019-12-06 13:08] LABS: ALANINE AMINOTRANSFERASE 108 U/L (0-55); ALBUMIN 5.3 GM/DL (3.2-4.5); ALKALINE PHOSPHATASE 74 U/L (40-136); BILIRUBIN,TOTAL 1.5 MG/DL (0.1-1.0); BUN/CREATININE RATIO 15; CALCIUM 9.5 MG/DL (8.5-10.1); CARBON DIOXIDE 20 MMOL/L (21-32); CHLORIDE 94 MMOL/L (98-107); CREATININE SERUM 0.72 MG/DL (0.60-1.30); GFR ESTIMATED > 60; GLUCOSE 120 MG/DL (70-105); POTASSIUM 3.3 MMOL/L (3.6-5.0); SODIUM 137 MMOL/L (135-145)
[2019-12-06 13:13] LABS: CLARITY,URINE CLEAR; COLOR,URINE AMBER; GLUCOSE, URINE (UA) NEGATIVE (NEGATIVE); KETONES,URINE 1+ (NEGATIVE); NITRITE,URINE NEGATIVE (NEGATIVE); PROTEIN,URINE TRACE (NEGATIVE)
[2019-12-06 13:14] LABS: BILIRUBIN,URINE 1+ (NEGATIVE); LEUKOCYTE ESTERASE ,URINE NEGATIVE (NEGATIVE)
[2019-12-06 13:17] LABS: BACTERIA,URINE NEGATIVE /HPF; RBC,URINE RARE /HPF; SQUAMOUS EPITHELIAL CELL,UR RARE /HPF; WBC,URINE 0-2 /HPF
[2019-12-06] MEDS ORDERED: KCL 20 MEQ TAB (K-DUR) PO ONE (13:30)
[2019-12-06] MEDS ORDERED: PENI500T PO (14:57)
[2019-12-06 15:04] VITALS: BP 152/98
== END 2019-12-06 15:04 | disposition home or self-care (01) ==
LOC: EDUNIT# 12:01 → ER FS 12:04
DX: E87.2 Acidosis (principal); K02.9 Dental caries, unspecified; E86.0 Dehydration; F41.9 Anxiety disorder, unspecified; F32.9 Major depressive disorder, single episode, unspecified; Z79.82 Long term (current) use of aspirin
CPT/HCPCS: 36415; 80053; 81000; 83605; 85025; 96360

== ENCOUNTER 2019-12-14 19:10 | Emergency (ER) | payer OTHER ==
[~2019-12-14] VITALS: Ht 175.3 cm; Wt 96.4 kg
[~2019-12-14 19:10] MED LIST changes: +PENI500T PO
[2019-12-14 19:20] VITALS: BP 147/92
--- OUTSIDE RECORDS SUMMARY | 2019-12-19 11:41 | XMS REPORT | Continuity of Care Document ---
Author Organization Unknown Address Unknown Phone Unavailable Allergies Active Description Code Type Severity Reaction Onset Reported/Identified Relationship to Patient Clinical Status Yes No Allergy Information Available [id number] Drug Allergy Unknown N/A 017 Yes No Known Drug Allergies [id number] Drug Allergy Unknown N/A 02/07/2019 Medications There [...] OR 02/08/2019 IRIS MAY MD Ot Z79.82 [facility] (CURRENT) USE OF ASPIRIN 02/08/2019 IRIS MAY MD Ot Z79.899 OTHER [facility] (CURRENT) DRUG THERAPY 02/08/2019 IRIS MAY MD [...] OR 02/18/2019 IRIS MAY MD Ot Z79.82 [facility] (CURRENT) USE OF ASPIRIN 02/18/2019 IRIS MAY MD Ot Z79.899 OTHER [facility] (CURRENT) DRUG THERAPY 02/18/2019 IRIS MAY MD [...] OR 02/18/2019 IRIS MAY MD Ot Z79.82 [employer] (CURRENT) USE OF ASPIRIN 02/18/2019 IRIS MAY MD Ot Z79.899 OTHER [facility] (CURRENT) DRUG THERAPY 02/18/2019 IRIS MAY MD Ot Z87.19 PERSONAL HISTORY OF OTHER DISEASES OF 02/18/2019 IRIS MAY MD Ot D69 .6 THROMBOCYTOPENIA, UNSPECIFIED 02/18/2019 IRIS MAY MD Ot F10.229 ALCOHOL DEPENDENCE WITH INTOXICATION, UN 02/18/2019 RIIS MAY MD Ot F32 .9 MAJOR DEPRESSIVE [...] OR 02/18/2019 IRIS MAY MD Ot Z79.82 [employer] (CURRENT) USE OF ASPIRIN 02/18/2019 IRIS MAY MD Ot Z79.899 OTHER [facility] (CURRENT) DRUG THERAPY 02/18/2019 IRIS MAY MD Ot Z87.19 PERSONAL HISTORY OF OTHER DISEASES OF TH 05/17/2019 ROE LUI MD Ot F10.129 ALCOHOL ABUSE WITH INTOXICATION, UNSPECI 05/17/2019 ROE LUI MD Ot F32.9 MAJOR DEPRESSIVE DISORDER, SINGLE EPISOD 05/17/2019 ROE LUI MD Ot F41.9 ANXIETY DISORDER, UNSPECIFIED 05/17/2019 ROE LUI MD Ot F43.10 POST-TRAUMATIC STRESS DISORDER, UNSPECIF 05/17/2019 ROE ULI MD Ot K21.9 GASTRO-ESOPHAGEAL REFLUX DISEASE WITHOUT 05/17/2019 ROE LUI MD Ot R45.851 SUICIDAL IDEATIONS 05/17/2019 ROE LUI MD Ot Y90.8 BLOOD ALCOHOL LEVEL OF 240 MG/100 ML OR 05/17/2019 ROE LUI MD Ot Z79.82 [employer] (CURRENT) USE OF ASPIRIN 05/21/2019 ROE LUI [...] OR 05/21/2019 ROE LUI MD Ot Z79.82 [facility] (CURRENT) USE OF ASPIRIN 06/27/2019 SAMINA KELLY [...] SAMINA KELLY DO B Ot Z79. 82 [facility] (CURRENT) USE OF ASPIRIN 06/29/2019 SAMINA KELLY [...] 06/29/2019 SAMINA KELLY DO Ot Z79. 82 [facility] (CURRENT) USE OF ASPIRIN 09/21/2019 ROE NORIEGA MD, Ot E86.0 DEHYDRATION 09/21/2019 ROE NORIEGA MD, Ot F10.10 ALCOHOL ABUSE, UNCOMPLICATED 09/21/2019 ROE NORIEGA MD Ot F32.9 MAJOR DEPRESSIVE DISORDER, SINGLE EPISOD 09/21/2019 ROE NORIEGA MD, Ot F41.9 ANXIETY DISORDER, UNSPECIFIED 09/21/2019 ROE NORIEGA MD, Ot F43.10 POST-TRAUMATIC STRESS DISORDER, UNSPECIF 09/21/2019 ROE NORIEGA MD, Ot K21.9 GASTRO-ESOPHAGEAL REFLUX DISEASE WITHOUT 09/21/2019 ROE NORIEGA MD Ot R0 5 COUGH 09/21/2019 ROE NORIEGA MD, Ot Y90.6 BLOOD ALCOHOL LEVEL OF 120-199 MG/100 ML 09/21/2019 ROE NORIEGA MD, Ot Z79.82 [facility] (CURRENT) USE OF ASPIRIN Procedures There is [...] plasma ethanol measurement (mass/volume) 350 mg/dL <10 Complete urinalysis with reflex to cultu re - 12/06/19 12:23 Urine color determination KESHA NRG Urine clarity determination CLEAR NR G Urine pH measurement by test strip 6.0 5-9 Specific gravity of urine by test strip 1.015 1.016-1.022 Urine protein assay by test strip, semi-quantitative TRACE NEGATIVE Urine glucose detection by automated test strip NE GATIVE NEGATIVE Erythrocytes detection in urine sediment by light micr oscopy TRACE NEGATIVE Urine ketones detection by automated test strip 1+ NEGATIVE Urine nitrite detection by test strip NEGATIVE NEGATIVE Urine total bilirubin detection by test strip 1+ NEGATIVE Urine urobilinogen measurement by automated test strip (mass/volume) 1.0 mg/dL < = 1.0 Urine leukocyte esterase detection by dipstick NEG ATIVE NEGATIVE Automated urine sediment erythrocyte cou nt by microscopy (number/high power field) RARE NRG Automated urine sediment leukocyte count by [...] detection in urine sediment by light microscopy MODERATE NRG Complete urinalysis with reflex to culture NO NRG Complete blood count (CBC) with automate d white blood cell (WBC) differential - 12/06/19 12:25 Blood leukocytes automated count (number/volume) 4.6 10*3/uL 4.3-11.0 Blood erythrocytes automated count (number/volume) 4.72 10*6/uL 4.35-5.85 Venous blood hemoglobin measurement (mass/volume) 14.4 g/dL 13.3-17.7 Blood hematocrit (volume fraction) 42 % 40-54 Automated erythrocyte mean corpuscular volume 88 [ foz_us] 80-99 Automated erythrocyte mean corpuscular h emoglobin (mass per erythrocyte) 31 pg 25-34 Automated erythrocyte mean corpuscular h emoglobin concentration measurement (mass/volume) 35 g/dL 32-36 Automated erythrocyte distribution width ratio 14. 9 % 10.0- 14.5 Automated blood platelet count (count/volume) 61 1 0*3/uL 130-400 Automated blood platelet mean volume measurement 10.5 [foz_us] 7.4-10.4 Automated blood neutrophils/100 leukocytes 54 % 42-75 Automated blood lymphocytes/100 leukocytes 36 % 12-44 Blood monocytes/100 leukocytes 7 % 0-12 Automated blood eosinophils/100 leukocytes 2 % 0-10 Automated blood basophils/100 leukocytes 1 % 0-10 Blood neutrophils automated count (number/volume) 2.5 10*3 1.8-7.8 Blood lymphocytes automated count (number/volume) 1.6 10*3 1.0-4.0 Blood monocytes automated count (number/volume) 0. 3 10*3 0.0-1.0 Automated eosinophil count 0.1 10*3/uL 0 .0-0.3 Automated blood basophil count (count/volume) 0.0 10*3/uL 0.0-0.1 Comprehensive metabolic panel - 12/06/19 12:25 Serum or plasma sodium measurement (moles/volume) 137 mmol/L 135-145 Serum or plasma potassium measurement (moles/volume) 3.3 mmol/L 3.6-5.0 Serum or plasma chloride measurement (moles/volume) 94 mmol/L 98-107 Carbon dioxide 20 mmol/L 21-32 Serum or plasma anion gap determination (moles/volume) 23 mmol/L 5-14 Serum or plasma urea nitrogen measurement (mass/volume ) 11 mg/dL 7-18 Serum or plasma creatinine measurement (mass/volume) 0.72 mg/dL 0.60-1.30 Serum or plasma urea nitrogen/creatinine mass ratio 15 NRG Serum or plasma creatinine measurement w ith calculation of estimated glomerular filtration rate > NRG Serum or plasma glucose measurement (mass/volume) 120 mg/dL 70-105 Serum or plasma calcium measurement (mass/volume) 9.5 mg/dL 8.5-10.1 Serum or plasma total bilirubin measurement (mass/volu me) 1.5 mg/dL 0.1-1.0 Serum or plasma alkaline phosphatase ema surement (enzymatic activity/volume) 74 U/L 40-136 Serum or plasma aspartate aminotransfera se measurement (enzymatic activity/volume) 120 U/L 5-34 Serum or plasma alanine aminotransferase measurement (enzymatic activity/volume) 108 U/L 0-55 Serum or plasma protein measurement (mass/volume) 8.0 g/dL 6.4-8.2 Serum or plasma albumin measurement (mass/volume) 5.3 g/dL 3.2-4.5 Blood lactic acid measurement (moles/vol ume) - 12/06/19 12:25 Blood lactic acid measurement (moles/volume) 2.48 mmol/L 0.50-2.00 Serum or plasma lactate measurement (mol es/volume) - 12/06/19 14:10 Serum or plasma lactate measurement (moles/volume) 2.14 mmol/L 0.50-2.00 Encounters ACCT No. Visit Date/Time Discharge Status Pt. Type Provider Facility Loc./Unit Complaint [id number] 12/14/2019 19:12:00 19:30:00 DIS Emergency LEAH CASTANEDA, BOBBY Pritchett [facility] ER FS [id number] 12/06/2019 12:04:00 15:04:00 DIS Emergency SAMINA KELLY DO [facility] ER FS POSSIBLE FACIAL INFECTI ON [id number] 11/20/2019 13:39:00 16:05:00 DIS Emergency ROSETTE GARAY DO [facility] ER FS INTOXICATED - BROUGHT I N BY [facility] [id number] 09/13/2019 21:03:00 22:46:00 DIS Outpatient ROE NORIEGA MD [facility] ER FS CONGESTION [id number] 06/22/2019 23:34:00 01:30:00 DIS Outpatient SAMINA KELLY DO [facility] ER FS VOMITING [id number] 05/16/2019 14:31:00 11:42:00 DIS Emergency ROE LUI MD [facility] ER FS ALCOHOL INTOXICATION [id number] 02/07/2019 23:33:00 16:10:00 DIS Inpatient LALO CASTANEDA, IRIS Chirinos [facility] 4TH ETOH INTOXICATION/ABUSE ; ABD PAIN [id number] 10/24/2016 12:00:00 17:51:00 DIS Inpatient URIAH HAMILTON DO, V [facility] 4TH ALCOHOL DETOX
== END 2019-12-14 19:30 | disposition left against medical advice (07) ==
LOC: EDUNIT# 19:10 → ER FS 19:12
DX: F10.129 Alcohol abuse with intoxication, unspecified (principal); F19.10 Other psychoactive substance abuse, uncomplicated
CPT/HCPCS: 99284

== ENCOUNTER 2020-09-14 10:50 | Outpatient (RCR) | payer OTHER ==
[~2020-09-14] VITALS: Ht 182 cm; Wt 104.5 kg
[~2020-09-14 10:50] MED LIST changes: +ASPI-1238 PO; -ASPI-983 PO; +LORA-404 PO
== END 2020-09-14 10:56 | disposition home or self-care (01) ==
LOC: PREOP 10:50
PROVIDERS: ATTEND Surgery
DX: Z01.812 Encounter for preprocedural laboratory examination (principal); Z12.11 Encounter for screening for malignant neoplasm of colon; Z86.010 Personal history of colon polyps; Z20.828 Contact with and (suspected) exposure to other viral communicable diseases

== ENCOUNTER → 2020-09-17 | Outpatient (CLI) | payer OTHER | LOC: LAB FS 08:58 | PROVIDERS: ATTEND Nurse Practitioner Family | DX: Z01.812 Encounter for preprocedural laboratory examination (principal); Z12.11 Encounter for screening for malignant neoplasm of colon; Z86.010 Personal history of colon polyps; Z20.828 Contact with and (suspected) exposure to other viral communicable diseases | CPT/HCPCS: 87635 ==

== ENCOUNTER 2020-10-16 18:35 | Emergency (ER) | payer OTHER ==
--- NOTE | 2020-10-16 19:41 | ED Psychosocial ---
General Chief Complaint: Substance Abuse Stated Complaint: INTOXICATED Nursing Triage Note: Pt brought in by ems intoxicated. Pt states he drank about a gallon of vodka today Source: patient, EMS Exam Limitations: no limitations History of Present Illness Date Seen by Provider: Oct 16, 2020 Time Seen by Provider: 19:20 Initial Comments Patient presents via EMS for psychosocial concerns. States he is lonely and has no one to talk to. He scared and afraid to . Known alcoholic and currently not hiding his intoxication. Denies suicidal thoughts or plan. His daughter moved to [place] and his to [facility].....he's very lonely and sad and just wants someone to talk to. Allergies and Home Medications Allergies Coded Allergies: No Known Drug Allergies (Unverified , 09/14/20) Home Medications Lisinopril 10 Mg Tablet, 10 MG PO HS, (Reported) Lorazepam 0.5 Mg Tablet, 0.5 MG PO HS PRN for ANXIETY, (Reported) Metoprolol Tartrate 25 Mg Tablet, 12.5 MG PO BID, (Reported) TAKES 1/2 (25MG) TABLET Patient Home Medication List Home Medication List Reviewed: Yes Review of Systems Constitutional: No fever, No malaise, No weakness Respiratory: No cough, No short of breath Cardiovascular: No chest pain, No syncope Gastrointestinal: No abdominal pain, No nausea, No vomiting Psychiatric/Neurological: Depressed, Emotional Problems; Denies Headache, Denies Weakness Past Rdchita-Xhpqlz-Ehtqsx Hx Past Med/Social Hx: Reviewed Nursing Past Med/Soc Hx Patient Social History Alcohol Use: Regular Use Number of Drinks Today: FF Alcohol Beverage of Choice: [place], Vodka Recreational Drug Use: Yes (ALCOHOL) 2nd Hand Smoke Exposure: No Recent Foreign Travel: No Contact w/Someone Who Travel: No Recent Infectious Disease Expo: No Recent Hopitalizations: No Physical Abuse: No Sexual Abuse: No Immunizations Up To Date Tetanus Booster (TDap): Unknown PED Vaccines UTD: No Seasonal Allergies Seasonal Allergies: No Past Medical History Surgeries: Yes (colonoscopy x4 without sedation and EGD x2) Respiratory: Yes Sleep Apnea Currently Using CPAP: No (DOES NOT USE CPAP) Currently Using BIPAP: No Cardiac: Yes Angina, Hypertension Neurological: No Sexually Transmitted Disease: No HIV/AIDS: No Gastrointestinal: Yes Gastroesophageal Reflux, Polyps Musculoskeletal: Yes Chronic Back Pain Endocrine: No HEENT: No (GLASSES) Loss of Vision: Denies Hearing Impairment: Denies Cancer: No Did You Recieve Any Treatments: No Psychosocial: Yes Anxiety, PTSD, Depression Integumentary: Yes Eczema Blood Disorders: No Adverse Reaction/Blood Tranf: No (N/A) Physical Exam Vital Signs - First Documented 10/16/20 18:50 Temp 36.6 Pulse 89 Resp 16 B/P (MAP) 136/76 (96) Pulse Ox 96 O2 Delivery Room Air Capillary Refill : Less Than 3 Seconds Height, Weight, BMI Height: 6'0" Weight: 230lbs. 0.0oz. [id number]; 31.00 BMI Method:Stated General Appearance: WD/WN, no apparent distress Respiratory: chest non-tender, lungs clear Cardiovascular: regular rate, rhythm, no edema Neurologic/Psychiatric: no motor/sensory deficits, alert, oriented x 3 Appearance/Memory: appropriate appearance, appropriate insight, disheveled Behavior/Eye Contact: cooperative Thoughts/Hallucinations: normal thought pattern, no apparent hallucination; No auditory hallucinations, No delusions, No flight of ideas Skin: normal color, warm/dry Progress/Results/Core Measures Results/Orders Vital Signs/I&O 10/16/20 18:50 Temp 36.6 Pulse 89 Resp 16 B/P (MAP) 136/76 (96) Pulse Ox 96 O2 Delivery Room Air Blood Pressure Mean: 96 Progress Progress Note : Progress Note patient without SI or SA and legitimately just "wanted someone to talk to". I spent some time talking and listening as well as did his nurse, Maxine. Patient felt better and wanted to go home. He refused offer for MH evaluation as he did not think he needed it and did not want to be in the ER that long. Agreed to suggestions to f/u for counseling services. Departure Impression Primary Impression: Acute alcoholic intoxication Qualified Codes: F10.920 - Alcohol use, unspecified with intoxication, uncomplicated Additional Impression: Depression Qualified Codes: F32.9 - Major depressive disorder, single episode, unspecified Disposition: 01 HOME, SELF-CARE Condition: Stable Departure-Patient Inst. Referrals: [facility],LOCAL PHYSICIAN (PCP) Primary Care Physician Patient Instructions: ALCOHOL AND SUBSTANCE ABUSE Add. Discharge Instructions: Call the [facility], [facility] to set up an appointment for mental health/ counseling services All discharge instructions reviewed with patient and/or family. Voiced understanding. RABIA DC DO Oct 16, 2020 19:41
[2020-10-16 20:33] VITALS: BP 136/76
== END 2020-10-16 20:33 | disposition home or self-care (01) ==
LOC: EDUNIT# 18:35 → ER FS 18:38
DX: F10.129 Alcohol abuse with intoxication, unspecified (principal); F32.9 Major depressive disorder, single episode, unspecified; I10 Essential (primary) hypertension
CPT/HCPCS: 99283

== ENCOUNTER → 2021-06-10 | Outpatient (CLI) | payer OTHER ==
[~2021-06-10] MED LIST changes: +LIDOCAINE 1% INJ 20 ML 20 ML VIAL INJ ONE; -LISI10TA2 PO; +LISI10TA25 PO
--- NOTE | 2021-06-10 18:38 | Diagnostic Imaging Report ---
EXAMINATION: Ultrasound soft tissue head and neck. HISTORY: Soft tissue mass. COMPARISON: None available. FINDINGS: The palpable abnormality is a 4.3 x 4.3 x 2.2 cm fat echogenicity encapsulated mass consistent with a lipoma. No other abnormality is seen. IMPRESSION: 1. The palpable left neck mass is a lipoma. Dictated by: Dictated on workstation # [id number]
== END ==
LOC: RAD 13:00
PROVIDERS: ATTEND Otolaryngology Otolaryngology/Facial Plastic Surgery
DX: D17.0 Benign lipomatous neoplasm of skin and subcutaneous tissue of head, face and neck (principal)
CPT/HCPCS: 76536

== ENCOUNTER 2021-08-12 17:46 | Emergency (ER) | payer OTHER ==
[~2021-08-12] VITALS: Ht 182.9 cm; Wt 108.9 kg
[~2021-08-12 17:46] MED LIST changes: -LIDOCAINE 1% INJ 20 ML 20 ML VIAL INJ ONE
[2021-08-12] MEDS ORDERED: THIAMINE 100 MG/ML 2 ML (VITAMIN B-1) VIAL IV STA (18:07)
[2021-08-12] MEDS ORDERED: THIAMINE 100 MG/ML 2 ML (VITAMIN B-1) VIAL ONE (18:07)
[2021-08-12 18:12] LABS: WHITE BLOOD COUNT 5.8 10^3/uL (4.3-11.0)
[2021-08-12 18:13] LABS: HEMATOCRIT 42 % (40-54); HEMOGLOBIN 14.2 g/dL (13.3-17.7); MEAN CORPUSCULAR HEMOGLOBIN 30 pg (25-34); MEAN CORPUSCULAR HGB CONC 34 g/dL (32-36); MEAN CORPUSCULAR VOLUME 89 fL (80-99); MEAN PLATELET VOLUME 10.5 fL (9.0-12.2); PLATELET COUNT 66 10^3/uL (130-400)
[2021-08-12 18:14] LABS: BASOPHILS # (AUTO) 0.1 10^3/uL (0.0-0.1); BASOPHILS % (AUTO) 1 % (0-10); EOSINOPHILS # (AUTO) 0.1 10^3/uL (0.0-0.3); EOSINOPHILS % (AUTO) 2 % (0-10); LYMPHOCYTES # (AUTO) 1.7 X 10^3 (1.0-4.0); LYMPHOCYTES % (AUTO) 29 % (12-44); MONOCYTES # (AUTO) 0.2 X 10^3 (0.0-1.0); MONOCYTES % (AUTO) 4 % (0-12); NEUTROPHILS # (AUTO) 3.7 X 10^3 (1.8-7.8); NEUTROPHILS % (AUTO) 65 % (42-75)
[2021-08-12] MEDS ORDERED: LACTATED RINGERS 1,000 ML IV ONE ×2 (18:15→19:04)
--- NOTE | 2021-08-12 18:15 | ED General ---
General Chief Complaint: General Problems/Pain Stated Complaint: SWOLLEN FEET Source of Information: Patient, EMS Exam Limitations: No Limitations History of Present Illness Date Seen by Provider: Aug 12, 2021 Time Seen by Provider: 17:47 Initial Comments 61-year-old male with past medical history of hypertension and alcohol use disorder coming in via EMS from home for a few different issues. The patient states he is very lonely, all of his family has moved either out of state or out of the country, and he has nobody to talk to. He says he has no friends and really just wishes family would move closer. He acknowledges that he is depressed, but says he has no thoughts to harm himself or harm anyone else. He says he self medicates with alcohol with his last drink being yesterday. His drink of choice is vodka. He says he ran out of it last night and that is why he has not had any today. He says he does not feel like he is withdrawing at this time. He also says he was talking to family and is worried that he could have kidney issues because when he urinates it comes out a little bit at a time. He is worried that he is not really eating and drinking like he should. Denies any chest pain, shortness of breath, abdominal pain, nausea, diarrhea, fever, chills, weakness, numbness, vision changes, headache, or any other concerns. Allergies and Home Medications Allergies Coded Allergies: No Known Drug Allergies (Unverified , 09/14/20) Patient Home Medication List Home Medication List Reviewed: Yes Lisinopril (Lisinopril) 10 Mg Tablet, 10 MG PO HS, (Reported) Entered as Reported by: DANA VASQUEZ on 10/24/16 1306 Lorazepam (Ativan) 0.5 Mg Tablet, 0.5 MG PO HS PRN for ANXIETY, (Reported) Entered as Reported by: YESENIA SARAVIA on 09/14/20 1041 Metoprolol Tartrate (Metoprolol Tartrate) 25 Mg Tablet, 12.5 MG PO BID, (Reported) Entered as Reported by: DANA VASQUEZ on 10/24/16 1336 Review of Systems Review of Systems Constitutional: No chills, No fever EENTM: No blurred vision Respiratory: No cough, No short of breath Cardiovascular: No chest pain, No palpitations, No syncope Gastrointestinal: No abdominal pain, No diarrhea, No nausea, No vomiting Genitourinary: frequency Musculoskeletal: No joint pain Skin: no symptoms reported Psychiatric/Neurological: Depressed; Denies Headache, Denies Numbness, Denies Seizure, Denies Weakness Hematologic/Lymphatic: No Symptoms Reported Immunological/Allergic: no symptoms reported All Other Systems Reviewed Negative Unless Noted: Yes Past Oztmoid-Dbmvru-Yklpag Hx Patient Social History Tobacco Use?: No Smoking Status: Never a Smoker Use of E-Cig and/or Vaping Brodie: Never a User Substance use?: No Alcohol Use?: Yes Alcohol type: Hard Liquor Alcohol Frequency: Daily Pt feels they are or have been: No Immunizations Up To Date Tetanus Booster (TDap): Unknown PED Vaccines UTD: No Seasonal Allergies Seasonal Allergies: No Past Medical History Surgeries: Yes (colonoscopy x4 without sedation and EGD x2) Respiratory: Yes Sleep Apnea Currently Using CPAP: No (DOES NOT USE CPAP) Currently Using BIPAP: No Cardiac: Yes Angina, Hypertension Neurological: No Sexually Transmitted Disease: No HIV/AIDS: No Gastrointestinal: Yes Gastroesophageal Reflux, Polyps Musculoskeletal: Yes Chronic Back Pain Endocrine: No HEENT: No (GLASSES) Loss of Vision: Denies Hearing Impairment: Denies Cancer: No Did You Recieve Any Treatments: No Psychosocial: Yes Anxiety, PTSD, Depression Integumentary: Yes Eczema Blood Disorders: No Adverse Reaction/Blood Tranf: No (N/A) Physical Exam Vital Signs Vital Signs - First Documented 08/12/21 17:48 Temp 36.4 Pulse 114 Resp 16 B/P (MAP) 137/91 (106) O2 Delivery Room Air Capillary Refill : Height, Weight, BMI Height: 6'0" Weight: 230lbs. 0.0oz. [id number]; 31.00 BMI Method:Stated General Appearance: No Apparent Distress, WD/WN Eyes: Bilateral Eye Normal Inspection, Bilateral Eye PERRL, Bilateral Eye EOMI HEENT: PERRL/EOMI, Normal ENT Inspection, Pharynx Normal Neck: Full Range of Motion, Normal Inspection, Non Tender, Supple Respiratory: Chest Non Tender, Lungs Clear, Normal Breath Sounds, No Accessory Muscle Use, No Respiratory Distress Cardiovascular: Regular Rate, Rhythm, No Edema, Normal Peripheral Pulses Gastrointestinal: Normal Bowel Sounds, Non Tender, Soft; No Distended, No Guarding Back: Normal Inspection, No CVA Tenderness, No Vertebral Tenderness Extremity: Normal Capillary Refill, Normal Inspection, Normal Range of Motion, Non Tender, No Calf Tenderness, No Pedal Edema Neurologic/Psychiatric: Alert, Oriented x3, No Motor/Sensory Deficits, Normal Mood/Affect, business administrator II-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 Norm as Tested, Depressed Affect, Other (Flat but talkative, help seeking, decent insight) Skin: Normal Color, Warm/Dry Lymphatic: No Adenopathy Progress/Results/Core Measures Suspected Sepsis SIRS Temperature: Pulse: Respiratory Rate: Laboratory Tests 08/12/21 17:50: White Blood Count 5.8 Blood Pressure / Mean: Laboratory Tests 08/12/21 17:50: Creatinine 0.79, INR Comment 1.1, Platelet Count 66L, Total Bilirubin 1.4H Results/Orders Lab Results Laboratory Tests Test 08/12/21 17:50 08/12/21 18:53 08/12/21 22:22 Range/Units White Blood Count 5.8 4.3-11.0 10^3/uL Red Blood Count 4.75 4.30-5.52 10^6/uL Hemoglobin 14.2 13.3-17.7 g/dL Hematocrit 42 40-54 % Mean Corpuscular Volume 89 80-99 fL Mean Corpuscular Hemoglobin 30 25-34 pg Mean Corpuscular Hemoglobin Concent 34 32-36 g/dL Red Cell Distribution Width 15.9 H 10.0-14.5 % Platelet Count 66 L 130-400 10^3/uL Mean Platelet Volume 10.5 9.0-12.2 fL Immature Granulocyte % (Auto) 0 % Neutrophils (%) (Auto) 65 42-75 % Lymphocytes (%) (Auto) 29 12-44 % Monocytes (%) (Auto) 4 0-12 % Eosinophils (%) (Auto) 2 0-10 % Basophils (%) (Auto) 1 0-10 % Neutrophils # (Auto) 3.7 1.8-7.8 X 10^3 Lymphocytes # (Auto) 1.7 1.0-4.0 X 10^3 Monocytes # (Auto) 0.2 0.0-1.0 X 10^3 Eosinophils # (Auto) 0.1 0.0-0.3 10^3/uL Basophils # (Auto) 0.1 0.0-0.1 10^3/uL Immature Granulocyte # (Auto) 0.0 0.0-0.1 10^3/uL Percent Immature Platelet Fraction 5.3 0.0-7.6 % Prothrombin Time 14.3 12.2-14.7 SEC INR Comment 1.1 0.8-1.4 Sodium Level 138 135-145 MMOL/L Potassium Level 3.8 3.6-5.0 MMOL/L Chloride Level 93 L 98-107 MMOL/L Carbon Dioxide Level 17 L 21-32 MMOL/L Anion Gap 28 H 5-14 MMOL/L Blood Urea Nitrogen 14 7-18 MG/DL Creatinine 0.79 0.60-1.30 MG/DL Estimat Glomerular Filtration Rate 100 BUN/Creatinine Ratio 18 Glucose Level 72 70-105 MG/DL Calcium Level 9.4 8.5-10.1 MG/DL Corrected Calcium 8.5-10.1 MG/DL Total Bilirubin 1.4 H 0.1-1.0 MG/DL Aspartate Amino Transf (AST/SGOT) 90 H 5-34 U/L Alanine Aminotransferase (ALT/SGPT) 64 H 0-55 U/L Alkaline Phosphatase 78 40-136 U/L Total Protein 7.9 6.4-8.2 GM/DL Albumin 5.5 H 3.2-4.5 GM/DL Lipase 95 H 8-78 U/L Salicylates Level < 0.3 L 5.0-20.0 MG/DL Acetaminophen Level < 10 L 10-30 UG/ML Serum Alcohol 168 H 98 H <10 MG/DL Urine Color YELLOW Urine Clarity CLEAR Urine pH 6.0 5-9 Urine Specific [place] 1.020 1.016-1.022 Urine Protein NEGATIVE NEGATIVE Urine Glucose (UA) NEGATIVE NEGATIVE Urine Ketones 3+ H NEGATIVE Urine Nitrite NEGATIVE NEGATIVE Urine Bilirubin 1+ H NEGATIVE Urine Urobilinogen 0.2 < = 1.0 MG/DL Urine Leukocyte Esterase NEGATIVE NEGATIVE Urine RBC (Auto) NEGATIVE NEGATIVE Urine RBC NONE /HPF Urine WBC RARE /HPF Urine Squamous Epithelial Cells 0-2 /HPF Urine Crystals NONE /LPF Urine Bacteria NEGATIVE /HPF Urine Casts NONE /LPF Urine Mucus SMALL H /LPF Urine Culture Indicated NO Urine Opiates Screen NEGATIVE NEGATIVE Urine Oxycodone Screen NEGATIVE NEGATIVE Urine Methadone Screen NEGATIVE NEGATIVE Urine Propoxyphene Screen NEGATIVE NEGATIVE Urine Barbiturates Screen NEGATIVE NEGATIVE Ur Tricyclic Antidepressants Screen NEGATIVE NEGATIVE Urine Phencyclidine Screen NEGATIVE NEGATIVE Urine Amphetamines Screen NEGATIVE NEGATIVE Urine Methamphetamines Screen NEGATIVE NEGATIVE Urine Benzodiazepines Screen NEGATIVE NEGATIVE Urine Cocaine Screen NEGATIVE NEGATIVE Urine Cannabinoids Screen NEGATIVE NEGATIVE My Orders Orders - JERAMIE GARY MD Alcohol (08/12/21 18:03) Cbc With Automated Diff (08/12/21 18:03) Comprehensive Metabolic Panel (08/12/21 18:03) Drug Screen Stat (Urine) (08/12/21 18:03) Lipase (08/12/21 18:03) Protime With Inr (08/12/21 18:03) Ua Culture If Indicated (08/12/21 18:03) Ed Iv/Invasive Line Start (08/12/21 18:03) Lactated Ringers (Lr 1000 Ml Iv Solution (08/12/21 18:15) Acetaminophen (08/12/21 18:03) Salicylate (08/12/21 18:03) Thiamine Injection (Vitamin B-1 Injectio (08/12/21 18:07) Thiamine Injection (Vitamin B-1 Injectio (08/12/21 18:07) Lactated Ringers (Lr 1000 Ml Iv Solution (08/12/21 19:15) Lactated Ringers (Lr 1000 Ml Iv Solution (08/12/21 19:04) Diazepam Tablet (Valium Tablet) (08/12/21 19:40) Diazepam Tablet (Valium Tablet) (08/12/21 19:52) Alcohol (08/12/21 22:15) Medications Given in ED Current Medications Medications Dose Ordered Sig/Regino Route Start Time Stop Time Status Last Admin Dose Admin Diazepam 5 mg STK-MED ONCE .ROUTE 08/12/21 19:52 08/12/21 19:56 DC 08/12/21 20:07 5 MG Lactated Ringer's 1,000 ml @ 0 mls/hr Q0M ONCE IV 08/12/21 18:15 08/12/21 18:16 DC 08/12/21 18:18 999 MLS/HR Vital Signs/I&O 08/12/21 17:48 Temp 36.4 Pulse 114 Resp 16 B/P (MAP) 137/91 (106) O2 Delivery Room Air 08/13/21 00:00 Intake Total 1997 ml Balance 1998 ml Capillary Refill : Progress Note : Progress Note 61-year-old male with above history coming in mostly because he is lonely and also he is worried for any kidney disease as he has not been taking care of his body, does not eat a healthy diet. Does drink alcohol essentially daily until he runs out. Does not feel like he is withdrawing at this time. Denies any history of withdrawal seizures or delirium tremens. Main issue is that he is having some urinary frequency. We will get a urinalysis but I suspect this is not infection related and more likely related to his prostate given his age. The urinalysis looks good, will refer him to one of the urologist at the [place] as he does have benefits with him. The patient does appear depressed, but has good insight into his disease, and does not want to harm himself or harm anyone else. He is help seeking at this time. I offered him mental health screening here, but he says that he does not want to go through that process right now mostly just wants a checkup. He confirms that he is not having any thoughts to harm himself. An IV was placed and basic labs were obtained. He was given IV fluids as well as thiamine given his chronic alcohol use with poor diet intake. On reassessment he appeared well. Labs reassuring with normal kidney function. His BAL was under 200. He does have an anion gap metabolic acidosis consistent with alcohol ketoacidosis. He received 2L IVF and is tolerating PO so this will self resolve. Given oral benzos for potential alcohol withdrawal since he is clinically sober and would normally be drinking by now. He is extremely flat, has severe anhedonia, and I am concerned he is very depressed. He is adamant that he would never hurt himself, but I encouraged him to discuss his case with our mental health screener which we had difficulty getting ahold of until 22:00 due to them being busy with other patients. At that time they said they will not put him in line to screen until his BAL is less than 100. Shortly after that a repeat BAL came back at 98. Patient and the mental health professional agreed upon a safety plan. He has a manager social services already and [facility]. I believe the patient is stable for discharge. He was discharged home in stable condition with strict return precautions. At the time of discharge, he is alert and oriented, ambulating on his own, and is clinically sober. Departure Impression Primary Impression: Alcohol use disorder Additional Impression: Depressed Qualified Codes: F32.9 - Major depressive disorder, single episode, unspecified Disposition: 01 HOME, SELF-CARE Condition: Stable Departure-Patient Inst. Decision time for Depature: 00:43 Referrals: NO,LOCAL PHYSICIAN (PCP/Family) Primary Care Physician Patient Instructions: Alcohol Use Disorder ED, Depression, Adult (DC) Add. Discharge Instructions: You were seen in the emergency department because you felt like your kidneys were not doing well and that you have not been able to eat or drink. You also said that you are depressed and alone. All of your labs are reassuring including your kidney function. Please reach out to [facility] as they may want to start you on medications that can help you in this moment where you are feeling down until things can improve. If you ever having any thoughts to harm yourself then please come back to the ER. JERAMIE GARY MD Aug 12, 2021 18:14
[2021-08-12 18:21] LABS: INR 1.1 (0.8-1.4); PROTHROMBIN TIME PATIENT 14.3 SEC (12.2-14.7)
[2021-08-12 18:30] LABS: ALANINE AMINOTRANSFERASE 64 U/L (0-55); ALKALINE PHOSPHATASE 78 U/L (40-136); BILIRUBIN,TOTAL 1.4 MG/DL (0.1-1.0); BUN/CREATININE RATIO 18; CALCIUM 9.4 MG/DL (8.5-10.1); CARBON DIOXIDE 17 MMOL/L (21-32); CHLORIDE 93 MMOL/L (98-107); CREATININE SERUM 0.79 MG/DL (0.60-1.30); GFR ESTIMATED 100; GLUCOSE 72 MG/DL (70-105); POTASSIUM 3.8 MMOL/L (3.6-5.0); SODIUM 138 MMOL/L (135-145); TOTAL PROTEIN 7.9 GM/DL (6.4-8.2)
[2021-08-12 18:31] LABS: ACETAMINOPHEN < 10 UG/ML (10-30); ALBUMIN 5.5 GM/DL (3.2-4.5); LIPASE 95 U/L (8-78); SALICYLATE < 0.3 MG/DL (5.0-20.0)
[2021-08-12] MEDS ORDERED: D5 LR IV SOLUTION 1,000 ML IV STA (18:53)
[2021-08-12 19:07] LABS: BACTERIA,URINE NEGATIVE /HPF; BILIRUBIN,URINE 1+ (NEGATIVE); CLARITY,URINE CLEAR; COLOR,URINE YELLOW; GLUCOSE, URINE (UA) NEGATIVE (NEGATIVE); KETONES,URINE 3+ (NEGATIVE); LEUKOCYTE ESTERASE ,URINE NEGATIVE (NEGATIVE); NITRITE,URINE NEGATIVE (NEGATIVE); PROTEIN,URINE NEGATIVE (NEGATIVE); SQUAMOUS EPITHELIAL CELL,UR 0-2 /HPF; WBC,URINE RARE /HPF
[2021-08-12 19:11] LABS: AMPHETAMINE SCREEN, URINE NEGATIVE (NEGATIVE); BARBITURATE SCREEN URINE NEGATIVE (NEGATIVE); BENZODIAZEPINES SCREEN URINE NEGATIVE (NEGATIVE); CANNABINOID SCREEN, URINE NEGATIVE (NEGATIVE); COCAINE SCREEN URINE NEGATIVE (NEGATIVE); METHADONE STAT NEGATIVE (NEGATIVE); METHAMPHETAMINE SCREEN URINE S NEGATIVE (NEGATIVE); OPIATE SCREEN URINE NEGATIVE (NEGATIVE); OXYCODONE STAT NEGATIVE (NEGATIVE); PROPOXYPHENE STAT NEGATIVE (NEGATIVE); TRICYCLIC ANTIDEPRESSANTS SCRE NEGATIVE (NEGATIVE)
[2021-08-12] MEDS ORDERED: LACTATED RINGERS 1,000 ML IV SCH (19:15)
[2021-08-12] MEDS ORDERED: DIAZEPAM 5 MG (VALIUM) TABLET PO STA (19:40)
[2021-08-12] MEDS ORDERED: DIAZEPAM 5 MG (VALIUM) TABLET ONE (19:52)
[2021-08-13 00:55] VITALS: BP 130/84
== END 2021-08-13 00:57 | disposition home or self-care (01) ==
LOC: EDUNIT# 17:46 → ER FS 17:47
DX: F10.99 Alcohol use, unspecified with unspecified alcohol-induced disorder (principal); F32.9 Major depressive disorder, single episode, unspecified; G47.30 Sleep apnea, unspecified; I10 Essential (primary) hypertension; F41.9 Anxiety disorder, unspecified; Z79.899 Other long term (current) drug therapy
CPT/HCPCS: 36415; 80053; 80306; 80320; 80329; 81000; 83690; 85025; 85610

== ENCOUNTER 2021-09-12 14:09 | Emergency (ER) | payer OTHER ==
[2021-09-12] MEDS ORDERED: NS IV 1000 ML 1,000 ML IV SCH (14:15)
[2021-09-12 14:57] LABS: HEMATOCRIT 45 % (40-54); HEMOGLOBIN 15.1 g/dL (13.3-17.7); MEAN CORPUSCULAR HEMOGLOBIN 30 pg (25-34); MEAN CORPUSCULAR HGB CONC 34 g/dL (32-36); MEAN CORPUSCULAR VOLUME 89 fL (80-99); MEAN PLATELET VOLUME 9.8 fL (9.0-12.2); NEUTROPHILS % (AUTO) 45 % (42-75); PLATELET COUNT 139 10^3/uL (130-400)
[2021-09-12 14:58] LABS: BASOPHILS # (AUTO) 0.1 10^3/uL (0.0-0.1); BASOPHILS % (AUTO) 1 % (0-10); EOSINOPHILS # (AUTO) 0.5 10^3/uL (0.0-0.3); EOSINOPHILS % (AUTO) 4 % (0-10); LYMPHOCYTES % (AUTO) 46 % (12-44); MONOCYTES # (AUTO) 0.6 X 10^3 (0.0-1.0); MONOCYTES % (AUTO) 4 % (0-12); NEUTROPHILS # (AUTO) 5.8 X 10^3 (1.8-7.8)
--- NOTE | 2021-09-12 15:01 | Diagnostic Imaging Report ---
EXAMINATION: CT head and CT cervical spine without contrast. TECHNIQUE: Multiple contiguous axial images were obtained through the brain and cervical spine without the use of intravenous contrast. Sagittal and coronal reformations through the cervical spine were then performed. All CT scans use one or more of the following dose optimizing techniques: automated exposure control, MA and/or KvP adjustment based on patient size and exam type or iterative reconstruction. HISTORY: Head and neck pain after fall. COMPARISON: None available. FINDINGS: HEAD: Mild diffuse cerebral volume loss with proportional enlargement of the ventricles and sulci. No abnormal attenuation of brain parenchyma is present. No acute intracranial hemorrhage or abnormal extra-axial fluid collections are present. Calcification of the intracranial ICAs. No hyperdense vessel. The calvarium is intact. The mastoid air cells are clear. The visualized paranasal sinuses are clear. The orbits are normal. C-SPINE: Vertebral body height and alignment are preserved. No acute fracture, dislocation, or destructive osseous process. No significant facet hypertrophy. No significant central canal or neuroforaminal stenosis. There is a prominent lipoma within the left neck musculature. The visualized thyroid gland is normal. The visualized lung apices are normal. IMPRESSION: 1. No acute intracranial abnormality. 2. No cervical spine fracture. Dictated by: Dictated on workstation # [id number]
--- NOTE | 2021-09-12 15:02 | ED General ---
General Chief Complaint: Trauma-Non Activation Stated Complaint: FALL History of Present Illness Date Seen by Provider: Sep 12, 2021 Time Seen by Provider: 14:59 Initial Comments Patient presenting to the emergency department for evaluation of reportedly falling down the stairs. I am somewhat confused by the circumstances as I do not know who called 911 as the fall occurred at his house. EMS reports that there may be a neighbor that checks on him and may have called 911 as a welfare check. Patient drinks alcohol on a regular basis and he denies any pain to me. He has abrasions on his face and says that his tetanus is up-to-date. He denies neck chest abdomen back or other extremity pain and no weakness numbness or tingling. He is in no acute distress with normal vital signs. Allergies and Home Medications Allergies Coded Allergies: No Known Drug Allergies (Unverified , 09/14/20) Patient Home Medication List Home Medication List Reviewed: Yes Lisinopril (Lisinopril) 10 Mg Tablet, 10 MG PO HS, (Reported) Entered as Reported by: DANA VASQUEZ on 10/24/16 1306 Lorazepam (Ativan) 0.5 Mg Tablet, 0.5 MG PO HS PRN for ANXIETY, (Reported) Entered as Reported by: YESENIA SARAVIA on 09/14/20 1041 Metoprolol Tartrate (Metoprolol Tartrate) 25 Mg Tablet, 12.5 MG PO BID, (Reported) Entered as Reported by: DANA VASQUEZ on 10/24/16 1336 Review of Systems Review of Systems Constitutional: no symptoms reported EENTM: no symptoms reported Respiratory: no symptoms reported Cardiovascular: no symptoms reported Gastrointestinal: no symptoms reported Musculoskeletal: no symptoms reported Skin: no symptoms reported Psychiatric/Neurological: No Symptoms Reported Past Zjbsbyv-Zeqnsn-Jcnpsd Hx Patient Social History Tobacco Use?: No Use of E-Cig and/or Vaping dev: No Substance use?: No Alcohol Use?: Yes Alcohol type: Hard Liquor Alcohol Frequency: Daily Pt feels they are or have been: No Immunizations Up To Date Tetanus Booster (TDap): Unknown PED Vaccines UTD: No First/Initial COVID19 Vaccinat: Not Currently Vaccinated Seasonal Allergies Seasonal Allergies: No Past Medical History Surgery/Hospitalization HX: Alcoholism Surgeries: Yes (colonoscopy x4 without sedation and EGD x2) Respiratory: Yes Sleep Apnea Currently Using CPAP: No (DOES NOT USE CPAP) Currently Using BIPAP: No Cardiac: Yes Angina, Hypertension Neurological: No Sexually Transmitted Disease: No HIV/AIDS: No Gastrointestinal: Yes Gastroesophageal Reflux, Polyps Musculoskeletal: Yes Chronic Back Pain Endocrine: No HEENT: No (GLASSES) Loss of Vision: Denies Hearing Impairment: Denies Cancer: No Did You Recieve Any Treatments: No Psychosocial: Yes Anxiety, PTSD, Depression Integumentary: Yes Eczema Blood Disorders: No Adverse Reaction/Blood Tranf: No (N/A) Physical Exam Vital Signs Vital Signs - First Documented 09/12/21 14:09 Temp 36.4 Pulse 98 Resp 18 B/P (MAP) 133/102 (112) Pulse Ox 97 O2 Delivery Room Air Capillary Refill : Height, Weight, BMI Height: 6'0" Weight: 230lbs. 0.0oz. [id number]; 32.00 BMI Method:Stated General Appearance: No Apparent Distress, WD/WN Eyes: Bilateral Eye PERRL, Bilateral Eye EOMI HEENT: Pharynx Normal Neck: Full Range of Motion, Normal Inspection, Supple Respiratory: Lungs Clear, No Respiratory Distress Cardiovascular: Regular Rate, Rhythm Gastrointestinal: Non Tender, Soft Extremity: Normal Capillary Refill Neurologic/Psychiatric: Alert, Oriented x3, No Motor/Sensory Deficits Skin: Warm/Dry, Other (Abrasions to his face but no open lacerations.) Progress/Results/Core Measures Suspected Sepsis SIRS Temperature: Pulse: Respiratory Rate: Laboratory Tests 09/12/21 14:22: White Blood Count 13.0H Blood Pressure / Mean: Laboratory Tests 09/12/21 14:22: Creatinine 0.76, Platelet Count 139, Total Bilirubin 0.7 Results/Orders Lab Results Laboratory Tests Test 09/12/21 14:22 Range/Units White Blood Count 13.0 H 4.3-11.0 10^3/uL Red Blood Count 5.06 4.30-5.52 10^6/uL Hemoglobin 15.1 13.3-17.7 g/dL Hematocrit 45 40-54 % Mean Corpuscular Volume 89 80-99 fL Mean Corpuscular Hemoglobin 30 25-34 pg Mean Corpuscular Hemoglobin Concent 34 32-36 g/dL Red Cell Distribution Width 16.4 H 10.0-14.5 % Platelet Count 139 130-400 10^3/uL Mean Platelet Volume 9.8 9.0-12.2 fL Immature Granulocyte % (Auto) 0 % Neutrophils (%) (Auto) 45 42-75 % Lymphocytes (%) (Auto) 46 H 12-44 % Monocytes (%) (Auto) 4 0-12 % Eosinophils (%) (Auto) 4 0-10 % Basophils (%) (Auto) 1 0-10 % Neutrophils # (Auto) 5.8 1.8-7.8 X 10^3 Lymphocytes # (Auto) 6.0 H 1.0-4.0 X 10^3 Monocytes # (Auto) 0.6 0.0-1.0 X 10^3 Eosinophils # (Auto) 0.5 H 0.0-0.3 10^3/uL Basophils # (Auto) 0.1 0.0-0.1 10^3/uL Immature Granulocyte # (Auto) 0.0 0.0-0.1 10^3/uL Neutrophils % (Manual) 34 % Lymphocytes % (Manual) 52 % Monocytes % (Manual) 1 % Eosinophils % (Manual) 3 % Basophils % (Manual) 1 % Band Neutrophils 1 % Reactive Lymphocytes 8 % Platelet Estimate NORMAL Anisocytosis SLIGHT Blood Morphology Comment NORMAL Sodium Level 140 135-145 MMOL/L Potassium Level 3.5 L 3.6-5.0 MMOL/L Chloride Level 102 98-107 MMOL/L Carbon Dioxide Level 22 21-32 MMOL/L Anion Gap 16 H 5-14 MMOL/L Blood Urea Nitrogen 7 7-18 MG/DL Creatinine 0.76 0.60-1.30 MG/DL Estimat Glomerular Filtration Rate 104 BUN/Creatinine Ratio 9 Glucose Level 151 H 70-105 MG/DL Calcium Level 8.6 8.5-10.1 MG/DL Corrected Calcium 8.2 L 8.5-10.1 MG/DL Total Bilirubin 0.7 0.1-1.0 MG/DL Aspartate Amino Transf (AST/SGOT) 35 H 5-34 U/L Alanine Aminotransferase (ALT/SGPT) 36 0-55 U/L Alkaline Phosphatase 70 40-136 U/L Total Protein 7.3 6.4-8.2 GM/DL Albumin 4.5 3.2-4.5 GM/DL Salicylates Level < 0.3 L 5.0-20.0 MG/DL Acetaminophen Level < 10 L 10-30 UG/ML Serum Alcohol 456 *H <10 MG/DL Smear Scan ABN. LYMPHS NOTED My Orders Orders - POLLY GARCIA DO Iv/Invasive Line Insertion .IV start (09/12/21 14:10) Cbc With Automated Diff (09/12/21 14:10) Comprehensive Metabolic Panel (09/12/21 14:10) Acetaminophen (09/12/21 14:10) Alcohol (09/12/21 14:10) Salicylate (09/12/21 14:10) Drug Screen Stat (Urine) (09/12/21 14:10) Ua Culture If Indicated (09/12/21 14:10) Ns Iv 1000 Ml (Sodium Chloride 0.9%) (09/12/21 14:15) Ct Head/Cervical Spine Wo (09/12/21 14:10) Manual Differential (09/12/21 14:22) Vital Signs/I&O 09/12/21 14:09 Temp 36.4 Pulse 98 Resp 18 B/P (MAP) 133/102 (112) Pulse Ox 97 O2 Delivery Room Air Capillary Refill : Progress Note : Progress Note Patient will get labs imaging treat with IV fluids and reassessed. Patient observed for several hours and then started ambulating around the emergency department in no acute distress and he was loud and distracting but he is alert and oriented x3 and he is requesting to be discharged. There is no acute pathology detected and his vital signs are normal and he has capacity to make his own medical decisions despite his intoxication. Given patient appears well with normal vital signs benign physical exam and work-up he will be discharged in stable condition told to follow-up on all incidental findings that were detected on his labs with his primary care provider next week and come back to the ED sooner with any new worsening symptoms. Patient aware and agreeable with plan and ambulated at the emergency department under his own power. Departure Impression Primary Impression: Acute alcoholic intoxication Qualified Codes: F10.920 - Alcohol use, unspecified with intoxication, uncomplicated Additional Impression: Facial abrasion Qualified Codes: S00.81XA - Abrasion of other part of head, initial encounter Disposition: HOME, SELF-CARE Condition: Stable Departure-Patient Inst. Referrals: NO,LOCAL PHYSICIAN (PCP/Family) Primary Care Physician Patient Instructions: Alcohol Use Disorder (DC) POLLY GARCIA DO Sep 12, 2021 15:02
[2021-09-12 15:04] LABS: POTASSIUM 3.5 MMOL/L (3.6-5.0); SODIUM 140 MMOL/L (135-145)
[2021-09-12 15:05] LABS: ALANINE AMINOTRANSFERASE 36 U/L (0-55); ALBUMIN 4.5 GM/DL (3.2-4.5); ALKALINE PHOSPHATASE 70 U/L (40-136); BILIRUBIN,TOTAL 0.7 MG/DL (0.1-1.0); BUN/CREATININE RATIO 9; CALCIUM 8.6 MG/DL (8.5-10.1); CARBON DIOXIDE 22 MMOL/L (21-32); CHLORIDE 102 MMOL/L (98-107); CREATININE SERUM 0.76 MG/DL (0.60-1.30); GFR ESTIMATED 104; GLUCOSE 151 MG/DL (70-105); SALICYLATE < 0.3 MG/DL (5.0-20.0); TOTAL PROTEIN 7.3 GM/DL (6.4-8.2)
[2021-09-12 15:06] LABS: ACETAMINOPHEN < 10 UG/ML (10-30)
[2021-09-12 15:14] LABS: SMEAR SCAN COMMENT ABN. LYMPHS NOTED
[2021-09-12 15:22] LABS: BAND NEUTROPHILS 1 %; BASOPHILS % (MANUAL) 1 %; EOSINOPHILS % (MANUAL) 3 %; LYMPHOCYTES % (MANUAL) 52 %; MONOCYTES % (MANUAL) 1 %; NEUTROPHILS % (MANUAL) 34 %; REACTIVE LYMPHOCYTES 8 %
[2021-09-12 15:23] LABS: ANISOCYTOSIS SLIGHT; PLATELET ESTIMATE NORMAL; RBC MORPH NORMAL
[2021-09-12 16:14] VITALS: BP 133/102
== END 2021-09-12 16:13 | disposition home or self-care (01) ==
LOC: EDUNIT# 14:09 → ER FS 14:10
DX: S00.81XA Abrasion of other part of head, initial encounter (principal); F10.129 Alcohol abuse with intoxication, unspecified; G47.30 Sleep apnea, unspecified; I10 Essential (primary) hypertension; F41.9 Anxiety disorder, unspecified; Z79.899 Other long term (current) drug therapy; W10.8XXA Fall (on) (from) other stairs and steps, initial encounter
CPT/HCPCS: 36415; 70450; 72125; 80053; 80320; 80329; 85007; 85027

== ENCOUNTER 2021-09-13 15:34 | Emergency (ER) | payer OTHER ==
[~2021-09-13] VITALS: Ht 180 cm; Wt 102.0 kg
--- NOTE | 2021-09-13 15:49 | ED Psychosocial ---
General Chief Complaint: Substance Abuse Stated Complaint: ALCOHOL INTOXICATION Source: patient, EMS Exam Limitations: no limitations History of Present Illness Date Seen by Provider: Sep 13, 2021 Time Seen by Provider: 15:39 Initial Comments 61-year-old male known to me with past medical history of hypertension and alcohol use disorder coming in via EMS from home because he was talking with his neighbor this morning and his neighbor said that he should back up because he could potentially have COVID. He then said he was worried that he could have a fever and wanted to get checked. He is denying any chest pain, shortness of breath, abdominal pain, nausea, vomiting, diarrhea, weakness, numbness, rash, or any other concerns. He was in the ER yesterday and got checked out, received IV fluids, and was discharged home in stable condition. Allergies and Home Medications Allergies Coded Allergies: No Known Drug Allergies (Unverified , 09/14/20) Patient Home Medication List Home Medication List Reviewed: Yes Lisinopril (Lisinopril) 10 Mg Tablet, 10 MG PO HS, (Reported) Entered as Reported by: DANA VASQUEZ on 10/24/16 1306 Lorazepam (Ativan) 0.5 Mg Tablet, 0.5 MG PO HS PRN for ANXIETY, (Reported) Entered as Reported by: YESENIA SARAVIA on 09/14/20 1041 Metoprolol Tartrate (Metoprolol Tartrate) 25 Mg Tablet, 12.5 MG PO BID, (Reported) Entered as Reported by: DANA VASQUEZ on 10/24/16 1336 Review of Systems Constitutional: No chills, No fever EENTM: No blurred vision Respiratory: No cough Cardiovascular: No chest pain Gastrointestinal: No abdominal pain Genitourinary: no symptoms reported Musculoskeletal: no symptoms reported Skin: no symptoms reported Psychiatric/Neurological: No Symptoms Reported All Other Systems Reviewed Negative Unless Noted: Yes Past Qlcjxyy-Dqmhae-Casrhy Hx Patient Social History Alcohol Use?: Yes Immunizations Up To Date Tetanus Booster (TDap): Unknown PED Vaccines UTD: No First/Initial COVID19 Vaccinat: Not Currently Vaccinated Seasonal Allergies Seasonal Allergies: No Past Medical History Surgery/Hospitalization HX: Alcoholism Surgeries: Yes (colonoscopy x4 without sedation and EGD x2) Respiratory: Yes Sleep Apnea Currently Using CPAP: No (DOES NOT USE CPAP) Currently Using BIPAP: No Cardiac: Yes Angina, Hypertension Neurological: No Sexually Transmitted Disease: No HIV/AIDS: No Gastrointestinal: Yes Gastroesophageal Reflux, Polyps Musculoskeletal: Yes Chronic Back Pain Endocrine: No HEENT: No (GLASSES) Loss of Vision: Denies Hearing Impairment: Denies Cancer: No Did You Recieve Any Treatments: No Psychosocial: Yes Anxiety, PTSD, Depression Integumentary: Yes Eczema Blood Disorders: No Adverse Reaction/Blood Tranf: No (N/A) Physical Exam Vital Signs - First Documented 09/13/21 15:48 Temp 36.3 Pulse 102 Resp 18 B/P (MAP) 135/73 (93) Pulse Ox 97 O2 Delivery Room Air Capillary Refill : Height, Weight, BMI Height: 6'0" Weight: 230lbs. 0.0oz. [id number]; 32.00 BMI Method:Stated General Appearance: WD/WN, no apparent distress HEENT: PERRL/EOMI, normal ENT inspection, pharynx normal Neck: non-tender, full range of motion, supple, normal inspection Respiratory: chest non-tender, lungs clear, normal breath sounds, no respiratory distress, no accessory muscle use Cardiovascular: regular rate, rhythm, no edema, no murmur Gastrointestinal: normal bowel sounds, non tender, soft; No distended, No guarding, No rebound Extremities: normal range of motion, non-tender, normal inspection, no pedal edema, no calf tenderness, normal capillary refill Neurologic/Psychiatric: no motor/sensory deficits, alert, normal mood/affect Appearance/Memory: disheveled Behavior/Eye Contact: good eye contact, normal speech Thoughts/Hallucinations: normal thought pattern; No auditory hallucinations; other (No thoughts of suicide or homicide) Skin: normal color, warm/dry Lymphatic: no adenopathy Progress/Results/Core Measures Results/Orders Vital Signs/I&O 09/13/21 09/13/21 15:48 15:54 Temp 36.3 36.3 Pulse 102 102 Resp 18 16 B/P (MAP) 135/73 (93) 135/73 Pulse Ox 97 97 O2 Delivery Room Air Room Air Progress Progress Note : Progress Note 61-year-old male well-known to me coming in because he had a brief interaction for a couple seconds with someone earlier today outside that could have COVID, and he was concerned that he could have a fever now. Fortunately, he is afebrile and his vitals are normal. He is drinking a lot of water and appears well-hydrated. He is very functional and clinically stable for discharge at this time. We have given him a cab voucher to take him back home. He was discharged home in stable condition with strict return precautions Of note, the patient was walking out, and was on the cell phone with the [place] suicide hotline which prompted us to ask him what he was talking about. He says he calls them at least daily just to have someone to talk to. He says he uses all of his resources and tries to talk to his neighbors, but they do not want to talk to them. He says this is a reliable source of someone to consistently listen to him so he can talk. He says if you do not say you are suicidal they will not engage with you, so he always starts it with a lie that he is suicidal. He confirms to me that he is not, would never do anything to harm himself, and wants to seek help. He says he just wants to go home and sleep. I have taken care of him before and this is a similar situation. He is actively help seeking often, and I do recommend he follow-up with the [place] which he already has resources with. I do not believe he is suicidal just like he is saying. And I believe he is stable for discharge. He was clinically very functional, walked out with a normal gait, is eating, and I believe is appropriate to go home. Departure Impression Primary Impression: Encounter for patient concern about exposure to infectious organism Additional Impression: Alcohol abuse Disposition: 01 HOME, SELF-CARE Condition: Stable Departure-Patient Inst. Decision time for Depature: 15:51 Referrals: NO,LOCAL PHYSICIAN (PCP/Family) Primary Care Physician Patient Instructions: ALCOHOL AND SUBSTANCE ABUSE Add. Discharge Instructions: You are seen in the emergency department because you were concerned you were exposed to someone with COVID earlier today. Fortunately he did not have a fever and your vitals are otherwise normal. You also appear well-hydrated. Continue to follow-up with your groups for alcohol use, and if you have any concerns he can come back to the ER JERAMIE GARY MD Sep 13, 2021 15:49
[2021-09-13 15:54] VITALS: BP 135/73
== END 2021-09-13 15:55 | disposition home or self-care (01) ==
LOC: EDUNIT# 15:34 → ER FS 15:35
DX: F10.10 Alcohol abuse, uncomplicated (principal); G47.30 Sleep apnea, unspecified; I10 Essential (primary) hypertension; Z79.899 Other long term (current) drug therapy
CPT/HCPCS: 99281

== ENCOUNTER 2021-09-14 21:42 | Emergency (ER) | payer OTHER ==
[2021-09-14 21:42] VITALS: BP 148/94
[2021-09-14 21:55] LABS: EOSINOPHILS % (AUTO) 3 % (0-10); HEMATOCRIT 41 % (40-54); HEMOGLOBIN 14.1 g/dL (13.3-17.7); LYMPHOCYTES % (AUTO) 40 % (12-44); MEAN CORPUSCULAR HEMOGLOBIN 30 pg (25-34); MEAN CORPUSCULAR HGB CONC 34 g/dL (32-36); MEAN CORPUSCULAR VOLUME 88 fL (80-99); MEAN PLATELET VOLUME 10.1 fL (9.0-12.2); MONOCYTES % (AUTO) 6 % (0-12); NEUTROPHILS % (AUTO) 51 % (42-75); PLATELET COUNT 114 10^3/uL (130-400)
[2021-09-14 21:56] LABS: BASOPHILS # (AUTO) 0.1 10^3/uL (0.0-0.1); BASOPHILS % (AUTO) 1 % (0-10); EOSINOPHILS # (AUTO) 0.3 10^3/uL (0.0-0.3); LYMPHOCYTES # (AUTO) 4.8 X 10^3 (1.0-4.0); MONOCYTES # (AUTO) 0.7 X 10^3 (0.0-1.0); NEUTROPHILS # (AUTO) 6.1 X 10^3 (1.8-7.8)
--- NOTE | 2021-09-14 21:57 | ED Psychosocial ---
General Stated Complaint: SUICIDAL IDEATION Source: patient Exam Limitations: no limitations History of Present Illness Date Seen by Provider: Sep 14, 2021 Time Seen by Provider: 21:43 Initial Comments 61-year-old male with alcohol use disorder well-known to me coming in via EMS from home due to intoxication as well as he has been repeatedly calling the [employer] hotline and they were concerns. The suicide hotline then contacted the police to do a wellness check on him. The patient was combative for EMS, but he did not require any medications and was able to be verbally deescalated. On arrival here he continues to say that he does not have a plan to harm himself, but he does not have the will to live and is more passive. Denies any physical complaints at this time other than he feels dehydrated and is repeatedly requesting IV fluids. Allergies and Home Medications Allergies Coded Allergies: No Known Drug Allergies (Unverified , 09/14/20) Patient Home Medication List Home Medication List Reviewed: Yes Lisinopril (Lisinopril) 10 Mg Tablet, 10 MG PO HS, (Reported) Entered as Reported by: DANA VASQUEZ on 10/24/16 1306 Lorazepam (Ativan) 0.5 Mg Tablet, 0.5 MG PO HS PRN for ANXIETY, (Reported) Entered as Reported by: YESENIA SARAVIA on 09/14/20 1041 Metoprolol Tartrate (Metoprolol Tartrate) 25 Mg Tablet, 12.5 MG PO BID, (Reported) Entered as Reported by: DANA VASQUEZ on 10/24/16 1336 Review of Systems Constitutional: No chills, No fever EENTM: No blurred vision Respiratory: no symptoms reported Cardiovascular: no symptoms reported Gastrointestinal: no symptoms reported Genitourinary: no symptoms reported Musculoskeletal: no symptoms reported Skin: no symptoms reported Psychiatric/Neurological: Depressed All Other Systems Reviewed Negative Unless Noted: Yes Past Kutghcx-Awrjph-Ofojap Hx Patient Social History Alcohol Use?: Yes Alcohol Frequency: Daily Immunizations Up To Date Tetanus Booster (TDap): Unknown PED Vaccines UTD: No First/Initial COVID19 Vaccinat: Not Currently Vaccinated Seasonal Allergies Seasonal Allergies: No Past Medical History Surgery/Hospitalization HX: Alcoholism Surgeries: Yes (colonoscopy x4 without sedation and EGD x2) Respiratory: Yes Sleep Apnea Currently Using CPAP: No (DOES NOT USE CPAP) Currently Using BIPAP: No Cardiac: Yes Angina, Hypertension Neurological: No Sexually Transmitted Disease: No HIV/AIDS: No Gastrointestinal: Yes Gastroesophageal Reflux, Polyps Musculoskeletal: Yes Chronic Back Pain Endocrine: No HEENT: No (GLASSES) Loss of Vision: Denies Hearing Impairment: Denies Cancer: No Did You Recieve Any Treatments: No Psychosocial: Yes Anxiety, PTSD, Depression Integumentary: Yes Eczema Blood Disorders: No Adverse Reaction/Blood Tranf: No (N/A) Physical Exam Vital Signs - First Documented 09/14/21 21:42 Temp 36.3 Pulse 88 Resp 18 B/P (MAP) 148/94 (112) Pulse Ox 96 O2 Delivery Room Air Capillary Refill : Height, Weight, BMI Height: 6'0" Weight: 230lbs. 0.0oz. [id number]; 31.00 BMI Method:Stated General Appearance: WD/WN, no apparent distress, other (Appears intoxicated) HEENT: PERRL/EOMI, normal ENT inspection, pharynx normal Neck: non-tender, full range of motion, supple, normal inspection Respiratory: chest non-tender, lungs clear, normal breath sounds, no respiratory distress, no accessory muscle use Cardiovascular: regular rate, rhythm, no edema, no murmur Gastrointestinal: normal bowel sounds, non tender, soft; No distended, No guarding, No rebound Extremities: normal range of motion, non-tender, normal inspection, no pedal edema, no calf tenderness, normal capillary refill Neurologic/Psychiatric: no motor/sensory deficits, alert, normal mood/affect Appearance/Memory: disheveled Behavior/Eye Contact: cooperative, other (Slurred speech) Skin: normal color, warm/dry Lymphatic: no adenopathy Progress/Results/Core Measures Results/Orders Lab Results My Orders Medications Given in ED Vital Signs/I&O Progress Progress Note : Progress Note 61-year-old male with above history coming in due to alcohol intoxication as well as concerns for suicidal ideation. The suicide hotline said he he was suicidal and they did a check on him. He was then brought here. He has more passive thoughts to me, but is more intoxicated than I have ever seen him in the past. We will let him metabolize and reassess. All psychiatric labs that we typically would order for screening have been ordered as well. The mental health screener has been notified. Blood alcohol level around 400 so let him metabolize while sleeping. Will reassess in the morning if suicidal when he is clinically sober. Signed out to Dr. Troncoso for reevaluation and decision on screening him vs going home after he is clinically sober. Initial ECG Impression Date: Sep 14, 2021 Initial ECG Impression Time: 22:06 Initial ECG Rate: 79 Initial ECG Rhythm: Normal Sinus Comment Narrow QRS, normal axis, no significant ST changes or T wave abnormalities Departure Impression Primary Impression: Acute alcoholic intoxication Qualified Codes: F10.929 - Alcohol use, unspecified with intoxication, unspecified Additional Impression: Passive suicidal ideations Disposition: 01 HOME, SELF-CARE Condition: Stable Departure-Patient Inst. Decision time for Depature: 09:20 Referrals: NO,LOCAL PHYSICIAN (PCP/Family) Primary Care Physician JERAMIE GARY MD Sep 14, 2021 21:57
[2021-09-14] MEDS ORDERED: LACTATED RINGERS 1,000 ML IV ONE (22:00)
[2021-09-14] MEDS ORDERED: OLANZapine 5 MG ODT (ZyPREXA ZYDIS) PO ONE (22:00)
[2021-09-14 22:09] LABS: BACTERIA,URINE NEGATIVE /HPF; BILIRUBIN,URINE NEGATIVE (NEGATIVE); CLARITY,URINE CLEAR; COLOR,URINE YELLOW; GLUCOSE, URINE (UA) NEGATIVE (NEGATIVE); KETONES,URINE NEGATIVE (NEGATIVE); LEUKOCYTE ESTERASE ,URINE NEGATIVE (NEGATIVE); NITRITE,URINE NEGATIVE (NEGATIVE); PROTEIN,URINE NEGATIVE (NEGATIVE); RBC,URINE 0-2 /HPF; WBC,URINE 0-2 /HPF
[2021-09-14 22:14] LABS: ACETAMINOPHEN < 10 UG/ML (10-30); ALANINE AMINOTRANSFERASE 32 U/L (0-55); ALBUMIN 4.4 GM/DL (3.2-4.5); ALKALINE PHOSPHATASE 69 U/L (40-136); BILIRUBIN,TOTAL 0.8 MG/DL (0.1-1.0); BUN/CREATININE RATIO 6; CALCIUM 9.6 MG/DL (8.5-10.1); CARBON DIOXIDE 24 MMOL/L (21-32); CHLORIDE 100 MMOL/L (98-107); CREATININE SERUM 0.63 MG/DL (0.60-1.30); GFR ESTIMATED 129; GLUCOSE 138 MG/DL (70-105); POTASSIUM 3.4 MMOL/L (3.6-5.0); SALICYLATE < 0.3 MG/DL (5.0-20.0); SODIUM 138 MMOL/L (135-145); TOTAL PROTEIN 7.4 GM/DL (6.4-8.2)
[2021-09-14 22:14] LABS: AMPHETAMINE SCREEN, URINE NEGATIVE (NEGATIVE); BARBITURATE SCREEN URINE NEGATIVE (NEGATIVE); BENZODIAZEPINES SCREEN URINE NEGATIVE (NEGATIVE); CANNABINOID SCREEN, URINE NEGATIVE (NEGATIVE); COCAINE SCREEN URINE NEGATIVE (NEGATIVE); METHADONE STAT NEGATIVE (NEGATIVE); METHAMPHETAMINE SCREEN URINE S NEGATIVE (NEGATIVE); OPIATE SCREEN URINE NEGATIVE (NEGATIVE); OXYCODONE STAT NEGATIVE (NEGATIVE); PROPOXYPHENE STAT NEGATIVE (NEGATIVE); TRICYCLIC ANTIDEPRESSANTS SCRE NEGATIVE (NEGATIVE)
[2021-09-15] MEDS ORDERED: ONDANSETRON 4 MG (ZOFRAN) ORAL DISSOLVE TAB PO STA (07:17)
[2021-09-15] MEDS ORDERED: ONDANSETRON 4 MG (ZOFRAN) ORAL DISSOLVE TAB ONE (07:22)
[2021-09-15] MEDS ORDERED: FAMOTIDINE 20 MG (PEPCID) TABLET PO ONE (07:30)
== END 2021-09-15 08:58 | disposition left against medical advice (07) ==
LOC: EDUNIT# 21:42 → ER FS 21:43
DX: F10.129 Alcohol abuse with intoxication, unspecified (principal); R45.851 Suicidal ideations; G47.30 Sleep apnea, unspecified; I10 Essential (primary) hypertension; F41.9 Anxiety disorder, unspecified; Z79.899 Other long term (current) drug therapy
CPT/HCPCS: 36415; 80053; 80306; 80320; 80329; 81000; 85025; 93005; 93041

== ENCOUNTER 2021-09-20 18:08 | Emergency (ER) | payer OTHER ==
--- NOTE | 2021-09-20 18:16 | ED Psychosocial ---
General Chief Complaint: Psych/Social Disorder Stated Complaint: PSYCH EVAL History of Present Illness Date Seen by Provider: Sep 20, 2021 Time Seen by Provider: 18:16 Initial Comments 61-year-old male presents with acute intoxication. Patient brought in by PD for psych evaluation. Patient is a known alcoholic. Is reported that [facility]" patient denies this but he is extremely intoxicated. No other history reported from him at this time.. (MICHAEL MAIN DO) Allergies and Home Medications Allergies Coded Allergies: No Known Drug Allergies (Unverified , 09/14/20) Patient Home Medication List Home Medication List Reviewed: Yes (MICHAEL MAIN DO) Home Medication List Reviewed: Yes (BOBBY LYNN MD) Lisinopril (Lisinopril) 10 Mg Tablet, 10 MG PO HS, (Reported) Entered as Reported by: DANA VASQUEZ on 10/24/16 1306 Lorazepam (Ativan) 0.5 Mg Tablet, 0.5 MG PO HS PRN for ANXIETY, (Reported) Entered as Reported by: YESENIA SARAVIA on 09/14/20 1041 Metoprolol Tartrate (Metoprolol Tartrate) 25 Mg Tablet, 12.5 MG PO BID, (Reported) Entered as Reported by: DANA VASQUEZ on 10/24/16 1336 Review of Systems Constitutional: see HPI Respiratory: no symptoms reported Cardiovascular: no symptoms reported Gastrointestinal: no symptoms reported Genitourinary: no symptoms reported Musculoskeletal: no symptoms reported Skin: no symptoms reported Psychiatric/Neurological: See HPI (MICHAEL MAIN DO) Past Pibdgtc-Ouastq-Jtfoif Hx Immunizations Up To Date Tetanus Booster (TDap): Unknown PED Vaccines UTD: No First/Initial COVID19 Vaccinat: Not Currently Vaccinated (MICHAEL MAIN DO) Seasonal Allergies Seasonal Allergies: No (MICHAEL MAIN DO) Past Medical History Surgery/Hospitalization HX: Alcoholism Surgeries: Yes (colonoscopy x4 without sedation and EGD x2) Respiratory: Yes Sleep Apnea Currently Using CPAP: No (DOES NOT USE CPAP) Currently Using BIPAP: No Cardiac: Yes Angina, Hypertension Neurological: No Sexually Transmitted Disease: No HIV/AIDS: No Gastrointestinal: Yes Gastroesophageal Reflux, Polyps Musculoskeletal: Yes Chronic Back Pain Endocrine: No HEENT: No (GLASSES) Loss of Vision: Denies Hearing Impairment: Denies Cancer: No Did You Recieve Any Treatments: No Psychosocial: Yes Anxiety, PTSD, Depression Integumentary: Yes Eczema Blood Disorders: No Adverse Reaction/Blood Tranf: No (N/A) (MAIN,MICHAEL L DO) Physical Exam Vital Signs - First Documented 09/20/21 09/21/21 18:32 15:37 Temp 36.5 Pulse 101 Resp 20 B/P (MAP) 179/103 (128) Pulse Ox 96 O2 Delivery Room Air (BOBBY LYNN MD) Capillary Refill : (MAIN,MICHAEL L DO) Height, Weight, BMI Height: 6'0" Weight: 230lbs. 0.0oz. [id number]; 31.00 BMI Method:Stated General Appearance: other (Obviously extremely intoxicated) Respiratory: no respiratory distress, no accessory muscle use Cardiovascular: regular rate, rhythm Gastrointestinal: non tender, soft Neurologic/Psychiatric: alert, other (Intoxicated) Appearance/Memory: disheveled Behavior/Eye Contact: compulsive Skin: normal color, warm/dry (MAIN,MICHAEL L DO) Progress/Results/Core Measures Results/Orders Lab Results Laboratory Tests Test 09/20/21 18:26 09/20/21 20:15 09/20/21 23:00 09/21/21 06:00 Range/Units White Blood Count 8.8 4.3-11.0 10^3/uL Red Blood Count 4.80 4.30-5.52 10^6/uL Hemoglobin 14.5 13.3-17.7 g/dL Hematocrit 42 40-54 % Mean Corpuscular Volume 88 80-99 fL Mean Corpuscular Hemoglobin 30 25-34 pg Mean Corpuscular Hemoglobin Concent 34 32-36 g/dL Red Cell Distribution Width 16.2 H 10.0-14.5 % Platelet Count 85 L 130-400 10^3/uL Mean Platelet Volume 10.1 9.0-12.2 fL Immature Granulocyte % (Auto) 0 % Neutrophils (%) (Auto) 53 42-75 % Lymphocytes (%) (Auto) 36 12-44 % Monocytes (%) (Auto) 5 0-12 % Eosinophils (%) (Auto) 5 0-10 % Basophils (%) (Auto) 1 0-10 % Neutrophils # (Auto) 4.7 1.8-7.8 X 10^3 Lymphocytes # (Auto) 3.2 1.0-4.0 X 10^3 Monocytes # (Auto) 0.4 0.0-1.0 X 10^3 Eosinophils # (Auto) 0.4 H 0.0-0.3 10^3/uL Basophils # (Auto) 0.1 0.0-0.1 10^3/uL Immature Granulocyte # (Auto) 0.0 0.0-0.1 10^3/uL Sodium Level 138 135-145 MMOL/L Potassium Level 3.7 3.6-5.0 MMOL/L Chloride Level 102 98-107 MMOL/L Carbon Dioxide Level 22 21-32 MMOL/L Anion Gap 14 5-14 MMOL/L Blood Urea Nitrogen 7 7-18 MG/DL Creatinine 0.72 0.60-1.30 MG/DL Estimat Glomerular Filtration Rate 111 BUN/Creatinine Ratio 10 Glucose Level 111 H 70-105 MG/DL Calcium Level 9.2 8.5-10.1 MG/DL Corrected Calcium 8.5-10.1 MG/DL Total Bilirubin 0.7 0.1-1.0 MG/DL Aspartate Amino Transf (AST/SGOT) 45 H 5-34 U/L Alanine Aminotransferase (ALT/SGPT) 35 0-55 U/L Alkaline Phosphatase 84 40-136 U/L Total Protein 7.7 6.4-8.2 GM/DL Albumin 4.7 H 3.2-4.5 GM/DL Salicylates Level < 0.3 L 5.0-20.0 MG/DL Acetaminophen Level < 10 L 10-30 UG/ML Serum Alcohol 404 *H 305 *H 142 H <10 MG/DL Urine Color YELLOW Urine Clarity CLEAR Urine pH 6.0 5-9 Urine Specific [place] 1.010 L 1.016-1.022 Urine Protein NEGATIVE NEGATIVE Urine Glucose (UA) NEGATIVE NEGATIVE Urine Ketones NEGATIVE NEGATIVE Urine Nitrite NEGATIVE NEGATIVE Urine Bilirubin NEGATIVE NEGATIVE Urine Urobilinogen 0.2 < = 1.0 MG/DL Urine Leukocyte Esterase NEGATIVE NEGATIVE Urine RBC (Auto) NEGATIVE NEGATIVE Urine RBC 0-2 /HPF Urine WBC 0-2 /HPF Urine Crystals NONE /LPF Urine Bacteria NEGATIVE /HPF Urine Casts NONE /LPF Urine Mucus SMALL H /LPF Urine Culture Indicated NO Urine Opiates Screen NEGATIVE NEGATIVE Urine Oxycodone Screen NEGATIVE NEGATIVE Urine Methadone Screen NEGATIVE NEGATIVE Urine Propoxyphene Screen NEGATIVE NEGATIVE Urine Barbiturates Screen NEGATIVE NEGATIVE Ur Tricyclic Antidepressants Screen NEGATIVE NEGATIVE Urine Phencyclidine Screen NEGATIVE NEGATIVE Urine Amphetamines Screen NEGATIVE NEGATIVE Urine Methamphetamines Screen NEGATIVE NEGATIVE Urine Benzodiazepines Screen NEGATIVE NEGATIVE Urine Cocaine Screen NEGATIVE NEGATIVE Urine Cannabinoids Screen NEGATIVE NEGATIVE Test 09/21/21 08:15 Range/Units Serum Alcohol 96 H <10 MG/DL (BOBBY LYNN MD) My Orders Orders - BOBBY LYNN MD Alcohol (09/21/21 08:00) (BOBBY LYNN MD) Medications Given in ED Current Medications Medications Dose Ordered Sig/Regino Route Start Time Stop Time Status Last Admin Dose Admin Ondansetron HCl 4 mg ONCE ONCE IVP 09/21/21 05:00 09/21/21 05:01 DC 09/21/21 04:59 4 MG (BOBBY LYNN MD) Vital Signs/I&O 09/21/21 09/21/21 09/21/21 04:21 06:45 15:37 Temp 36.5 Pulse 98 94 89 Resp 14 14 16 B/P (MAP) 148/95 142/90 145/89 Pulse Ox 95 95 98 O2 Delivery Room Air Room Air Room Air (BOBBY LYNN MD) Progress Progress Note #1: Time: 07:00 Progress Note I assumed care of the patient from Dr. Main at shift change. Patient is in protective custody of police for making suicidal statements. I reviewed his labs and chart from Dr. Main. He had initial ETOH level of 405 and [facility] would not screen him until it was under 100. When last checked at 6 am it was 142. Will recheck at 8 am. He is medically stable and clear for evaluation by [facility] and then determine disposition after their screening. Once the alcohol level has been found to be under 100 will send the chart and information to [facility] for patient's screening. Progress Note #2: Time: 08:48 Progress Note Repeat alcohol level is now down to 96. Again patient is medically clear and stable for evaluation by [facility]. Will contact them for screening for mental health eval. Progress Note #3: Time: 14:56 Progress Note After completing the screening by [facility] they called and spoke with law enforcement and nursing. They recommended the patient be discharged with a safety plan. He has denying any suicidal ideation or risk of harm to himself currently while he is sober. The [facility] screener did encourage him to seek out alcohol detox treatment. As the patient would have to do this voluntarily will provide information that we have. Since he has [facility] they do have programs through the [facility] that he would have access to as well. Given this is a voluntary program that he would have to be involved with he would have to make calls and set that up himself. Once Safety plan was faxed over it was reviewed with patient and he was given a copy. He walked out of the department with a steady gait. (BOBBY LYNN MD) Departure Impression Primary Impression: Acute alcoholic intoxication Qualified Codes: F10.920 - Alcohol use, unspecified with intoxication, uncomplicated Additional Impressions: Passive suicidal ideations Alcohol abuse Alcohol use disorder Disposition: 01 HOME, SELF-CARE Condition: Stable Departure-Patient Inst. Decision time for Depature: 15:18 (BOBBY LYNN MD) Referrals: NO,LOCAL PHYSICIAN (PCP/Family) Primary Care Physician Patient Instructions: ALCOHOL AND SUBSTANCE ABUSE Add. Discharge Instructions: Follow the safety plan as set up with the screener from [facility] today Work with the [facility] and your regular provider to seek out assistance with your drinking and alcohol abuse. Do not drink alcohol All discharge instructions reviewed with patient and/or family. Voiced un derstanding. MICHAEL MAIN DO Sep 20, 2021 18:16 BOBBY LYNN MD Sep 21, 2021 07:51
[2021-09-20 18:32] LABS: HEMATOCRIT 42 % (40-54); HEMOGLOBIN 14.5 g/dL (13.3-17.7); MEAN CORPUSCULAR HEMOGLOBIN 30 pg (25-34); MEAN CORPUSCULAR HGB CONC 34 g/dL (32-36); MEAN CORPUSCULAR VOLUME 88 fL (80-99); PLATELET COUNT 85 10^3/uL (130-400); WHITE BLOOD COUNT 8.8 10^3/uL (4.3-11.0)
[2021-09-20 18:33] LABS: BASOPHILS # (AUTO) 0.1 10^3/uL (0.0-0.1); BASOPHILS % (AUTO) 1 % (0-10); EOSINOPHILS # (AUTO) 0.4 10^3/uL (0.0-0.3); EOSINOPHILS % (AUTO) 5 % (0-10); LYMPHOCYTES # (AUTO) 3.2 X 10^3 (1.0-4.0); LYMPHOCYTES % (AUTO) 36 % (12-44); MEAN PLATELET VOLUME 10.1 fL (9.0-12.2); MONOCYTES # (AUTO) 0.4 X 10^3 (0.0-1.0); MONOCYTES % (AUTO) 5 % (0-12); NEUTROPHILS # (AUTO) 4.7 X 10^3 (1.8-7.8); NEUTROPHILS % (AUTO) 53 % (42-75)
[2021-09-20 18:51] LABS: ACETAMINOPHEN < 10 UG/ML (10-30); ALANINE AMINOTRANSFERASE 35 U/L (0-55); ALBUMIN 4.7 GM/DL (3.2-4.5); ALKALINE PHOSPHATASE 84 U/L (40-136); BILIRUBIN,TOTAL 0.7 MG/DL (0.1-1.0); BUN/CREATININE RATIO 10; CALCIUM 9.2 MG/DL (8.5-10.1); CARBON DIOXIDE 22 MMOL/L (21-32); CHLORIDE 102 MMOL/L (98-107); CREATININE SERUM 0.72 MG/DL (0.60-1.30); GFR ESTIMATED 111; GLUCOSE 111 MG/DL (70-105); POTASSIUM 3.7 MMOL/L (3.6-5.0); SALICYLATE < 0.3 MG/DL (5.0-20.0); SODIUM 138 MMOL/L (135-145); TOTAL PROTEIN 7.7 GM/DL (6.4-8.2)
[2021-09-20 20:25] LABS: BACTERIA,URINE NEGATIVE /HPF; BILIRUBIN,URINE NEGATIVE (NEGATIVE); CLARITY,URINE CLEAR; COLOR,URINE YELLOW; GLUCOSE, URINE (UA) NEGATIVE (NEGATIVE); KETONES,URINE NEGATIVE (NEGATIVE); LEUKOCYTE ESTERASE ,URINE NEGATIVE (NEGATIVE); NITRITE,URINE NEGATIVE (NEGATIVE); PROTEIN,URINE NEGATIVE (NEGATIVE); RBC,URINE 0-2 /HPF; WBC,URINE 0-2 /HPF
[2021-09-20 20:34] LABS: AMPHETAMINE SCREEN, URINE NEGATIVE (NEGATIVE); BARBITURATE SCREEN URINE NEGATIVE (NEGATIVE); BENZODIAZEPINES SCREEN URINE NEGATIVE (NEGATIVE); CANNABINOID SCREEN, URINE NEGATIVE (NEGATIVE); COCAINE SCREEN URINE NEGATIVE (NEGATIVE); METHADONE STAT NEGATIVE (NEGATIVE); METHAMPHETAMINE SCREEN URINE S NEGATIVE (NEGATIVE); OPIATE SCREEN URINE NEGATIVE (NEGATIVE); OXYCODONE STAT NEGATIVE (NEGATIVE); PROPOXYPHENE STAT NEGATIVE (NEGATIVE); TRICYCLIC ANTIDEPRESSANTS SCRE NEGATIVE (NEGATIVE)
[2021-09-21] MEDS ORDERED: ONDANSETRON 4 MG/2 ML (SDV) Z0FRAN IVP ONE (05:00)
[2021-09-21 15:37] VITALS: BP 145/89
== END 2021-09-21 15:32 | disposition home or self-care (01) ==
LOC: EDUNIT# 18:08 → ER FS 18:09
DX: F10.129 Alcohol abuse with intoxication, unspecified (principal); R45.851 Suicidal ideations; G47.30 Sleep apnea, unspecified; I10 Essential (primary) hypertension; F41.9 Anxiety disorder, unspecified; Z79.899 Other long term (current) drug therapy
CPT/HCPCS: 36415; 80053; 80306; 80320; 80329; 81000; 85025; 96374

== ENCOUNTER → 2021-11-21 | Outpatient (CLI) | payer OTHER ==
[~2021-11-21] MED LIST changes: +HOLD METFORMIN - RECEIVED CONTRAST 20 ML VIAL IV SCH; +IOHEXOL 350 MG/ML 100 ML (OMNIPAQUE 350) VIAL IV ONE; +NS 100 ML (IVPB) BAG IV ONE
[2021-11-21 15:39] LABS: CREATININE SERUM 0.76 MG/DL (0.60-1.30)
--- NOTE | 2021-11-21 17:16 | Diagnostic Imaging Report ---
CLINICAL INDICATION: Patient with left neck mass, lipoma. EXAM: Axial CT scan of the neck soft tissue performed with 75 mL of Omnipaque 350 IV contrast. Sagittal and coronal reformatted images are created. Auto Exposure Controls were utilized during the CT exam to meet ALARA standards for radiation dose reduction. COMPARISON: CT scan of the cervical spine without contrast dated 09/12/2021. Ultrasound of the neck soft tissue dated 06/10/2021. FINDINGS: There is a 3.5 cm x 2.5 cm x 4.3 cm (AP x Trans x CC) fat-containing mass within the soft tissue structures on the left side of the neck. This mass appears to be within the deep musculature along the left side of the neck and is seen at the C2-C3 level. This mass is in the region of the left levator scapulae muscle and splenius cervicis muscle. There is no bony remodeling seen. This is most consistent with a benign lipoma. There is no complexity of this mass noted. This mass is posterior to the left carotid space and abuts and displaces the left jugular vein anteriorly, but the left jugular vein is narrowed but appears patent otherwise. This mass is beneath the left sternocleidomastoid muscle and at the level of the angle of the mandible. Previously, this mass was measured at 4.3 cm x 4.3 cm x 2.2 cm on the comparison ultrasound. Differences in size may be related to differences in modality and measuring technique. There is no other neck soft tissue mass seen. There is no lymphadenopathy. The nasopharynx, oropharynx, hypopharynx, and laryngeal soft tissue structures show no significant abnormality. The visualized portions of the oral cavity, tongue, sublingual and submandibular regions are unremarkable as visualized. Dental streak artifact obscures some portions of the oral cavity. There is a 6 mm low-density nodule involving the left thyroid lobe and another smaller low-density nodule seen superiorly within left thyroid lobe. The salivary glands are unremarkable. Limited visualization of the intracranial structures is unremarkable. Orbits and globes are unremarkable. There is mild mucosal thickening involving the left maxillary sinus. Mastoid air cells are clear. Visualized upper lung fierro are clear. There are cervical spine vertebral body spurs. IMPRESSION: 1: There is a 4.3 cm benign-appearing lipoma within the deep muscular areas in the left lateral aspect of the neck at C2-C3 level. 2: There are two low-density nodules involving the left thyroid lobe with the largest measures 6 mm. Nonemergent thyroid ultrasound would better evaluate. 3: Remainder of this exam shows no other significant abnormality. Dictated by: Dictated on workstation # [id number]
== END ==
LOC: RAD 14:15
PROVIDERS: ATTEND Otolaryngology Otolaryngology/Facial Plastic Surgery
DX: D17.0 Benign lipomatous neoplasm of skin and subcutaneous tissue of head, face and neck (principal); E04.2 Nontoxic multinodular goiter
CPT/HCPCS: 36415; 70491; 82565; 84520

== ENCOUNTER 2022-03-07 16:03 | Emergency (ER) | payer OTHER ==
[~2022-03-07 16:03] MED LIST changes: -HOLD METFORMIN - RECEIVED CONTRAST 20 ML VIAL IV SCH; -IOHEXOL 350 MG/ML 100 ML (OMNIPAQUE 350) VIAL IV ONE; -NS 100 ML (IVPB) BAG IV ONE
[2022-03-07] MEDS ORDERED: PANTOPRAZOLE 40 MG (PROTONIX) VIAL IV STA (16:39)
[2022-03-07] MEDS ORDERED: NS IV 1000 ML 1,000 ML IV STA (16:39)
[2022-03-07] MEDS ORDERED: ONDANSETRON 4 MG/2 ML (SDV) Z0FRAN IVP STA (16:39)
[2022-03-07] MEDS ORDERED: KETOROLAC 30 MG/ML VIAL IVP STA (16:39)
[2022-03-07 16:49] LABS: BASOPHILS # (AUTO) 0.1 10^3/uL (0.0-0.1); BASOPHILS % (AUTO) 2 % (0-10); EOSINOPHILS # (AUTO) 0.1 10^3/uL (0.0-0.3); EOSINOPHILS % (AUTO) 2 % (0-10); HEMATOCRIT 44 % (40-54); HEMOGLOBIN 15.2 g/dL (13.3-17.7); LYMPHOCYTES % (AUTO) 34 % (12-44); MEAN CORPUSCULAR HEMOGLOBIN 31 pg (25-34); MEAN CORPUSCULAR HGB CONC 35 g/dL (32-36); MEAN CORPUSCULAR VOLUME 90 fL (80-99); MEAN PLATELET VOLUME 10.1 fL (9.0-12.2); MONOCYTES # (AUTO) 0.4 10^3/uL (0.0-1.0); MONOCYTES % (AUTO) 7 % (0-12); NEUTROPHILS # (AUTO) 3.2 10^3/uL (1.8-7.8); NEUTROPHILS % (AUTO) 55 % (42-75); PLATELET COUNT 56 10^3/uL (130-400); WHITE BLOOD COUNT 5.8 10^3/uL (4.3-11.0)
[2022-03-07 17:29] LABS: ALBUMIN 4.4 GM/DL (3.2-4.5); BILIRUBIN,TOTAL 1.1 MG/DL (0.1-1.0); CALCIUM 8.4 MG/DL (8.5-10.1); CREATININE SERUM 0.76 MG/DL (0.60-1.30); POTASSIUM 3.5 MMOL/L (3.6-5.0); TOTAL PROTEIN 6.9 GM/DL (6.4-8.2)
--- NOTE | 2022-03-07 17:32 | ED General ---
General Chief Complaint: General Problems/Pain Stated Complaint: INTOXICATION Nursing Triage Note: Patient has been brought to ER by EMS with cc of being intoxicated. Patient called EMS and wanted to be brought to ER. He has no complaint. Repors drinking vodka for the last 2 days. Per EMS he "blew .362" per the poice officer that was at the house. Patient has no complaint. Source of Information: Patient, EMS, Old Records History of Present Illness Date Seen by Provider: March 07, 2022 Time Seen by Provider: 16:06 Initial Comments 61-year-old male presenting with concern for alcohol intoxication. He presented by EMS after they were called to his house for alcohol intoxication. He states that he has been drinking a lot of vodka in the last few days. He was missing his daughters who are living [place]. He initially had no other complaints other than he stated that he was intoxicated and wanted a safe place to sleep. However when I asked if there was any medical complaints that brought him to the emergency department he stated that he had chronic abdominal pain on the right side. He has had at least 4 colonoscopies to evaluate that but they have not told him what was causing it. He states he was having pain in that area today. He denies having any blood in his stools or dark tarry stool. He has no fever, chills, cough, pain with urination. He stated that he did have an episode of vomiting yesterday. He denies any drug use but admits to drinking vodka but states that he has not drank that much recently. Timing/Duration: 1-2 Days Severity: Moderate Associated Systoms: No Chest Pain, No Cough, No Diaphoresis, No Fever/Chills, No Headaches, No Loss of Appetite; Malaise, Nausea/Vomiting (x1 yesterday); No Rash, No Seizure, No Shortness of Air, No Syncope, No Weakness Allergies and Home Medications Allergies Coded Allergies: No Known Drug Allergies (Unverified , 09/14/20) Patient Home Medication List Home Medication List Reviewed: Yes Lisinopril (Lisinopril) 10 Mg Tablet, 10 MG PO HS, (Reported) Entered as Reported by: DANA VASQUEZ on 10/24/16 1306 Lorazepam (Ativan) 0.5 Mg Tablet, 0.5 MG PO HS PRN for ANXIETY, (Reported) Entered as Reported by: YESENAI SARAVIA on 09/14/20 1041 Metoprolol Tartrate (Metoprolol Tartrate) 25 Mg Tablet, 12.5 MG PO BID, (Reported) Entered as Reported by: DANA VASQUEZ on 10/24/16 1336 Review of Systems Review of Systems Constitutional: see HPI; No chills, No fever EENTM: no symptoms reported Respiratory: No cough, No short of breath Cardiovascular: No chest pain Gastrointestinal: see HPI Genitourinary: No dysuria Musculoskeletal: no symptoms reported Skin: No change in color, No rash Psychiatric/Neurological: See HPI Hematologic/Lymphatic: Denies Blood Clots Immunological/Allergic: no symptoms reported Past Ckgsuvp-Krhtku-Dwuinf Hx Patient Social History Tobacco Use?: No Use of E-Cig and/or Vaping dev: No Substance use?: No Alcohol Use?: Yes Alcohol type: Hard Liquor Alcohol Frequency: Daily Immunizations Up To Date Tetanus Booster (TDap): Unknown PED Vaccines UTD: No First/Initial COVID19 Vaccinat: Not Currently Vaccinated Second COVID19 Vaccination James: Not Currently Vaccinated Third COVID19 Vaccination Date: Not Currently Vaccinated Seasonal Allergies Seasonal Allergies: No Past Medical History Surgery/Hospitalization HX: Alcoholism Surgeries: Yes (colonoscopy x4 without sedation and EGD x2) Respiratory: Yes Sleep Apnea Currently Using CPAP: No (DOES NOT USE CPAP) Currently Using BIPAP: No Cardiac: Yes Angina, Hypertension Neurological: No Sexually Transmitted Disease: No HIV/AIDS: No Gastrointestinal: Yes Gastroesophageal Reflux, Polyps Musculoskeletal: Yes Chronic Back Pain Endocrine: No HEENT: No (GLASSES) Loss of Vision: Denies Hearing Impairment: Denies Cancer: No Did You Recieve Any Treatments: No Psychosocial: Yes Anxiety, PTSD, Depression Integumentary: Yes Eczema Blood Disorders: No Adverse Reaction/Blood Tranf: No (N/A) Physical Exam Vital Signs Vital Signs - First Documented 03/07/22 16:09 Temp 37.2 Pulse 94 Resp 18 B/P (MAP) 133/84 (100) Pulse Ox 92 O2 Delivery Room Air Capillary Refill : Height, Weight, BMI Height: 6'0" Weight: 230lbs. 0.0oz. 104.040124zf; 31.00 BMI Method:Stated General Appearance: No Apparent Distress, Obese HEENT: PERRL/EOMI, Pharynx Normal Neck: Full Range of Motion, Normal Inspection, Non Tender, Supple Respiratory: Chest Non Tender, Lungs Clear, Normal Breath Sounds, No Accessory Muscle Use, No Respiratory Distress Cardiovascular: Regular Rate, Rhythm, Normal Peripheral Pulses Gastrointestinal: Normal Bowel Sounds, No Pulsatile Mass, Non Tender, Soft Rectal: Deferred Back: No CVA Tenderness, No Vertebral Tenderness Extremity: Normal Capillary Refill, Normal Inspection, No Calf Tenderness Neurologic/Psychiatric: Alert, Oriented x3, tube operator II-XII Norm as Tested Skin: Normal Color, Warm/Dry Progress/Results/Core Measures Suspected Sepsis SIRS Temperature: Pulse: 94 Respiratory Rate: 18 Laboratory Tests 03/07/22 16:38: White Blood Count 5.8 Blood Pressure 133 /84 Mean: 100 Laboratory Tests 03/07/22 16:38: Creatinine 0.76, Platelet Count 56L, Total Bilirubin 1.1H Results/Orders Lab Results Laboratory Tests Test 03/07/22 16:38 Range/Units White Blood Count 5.8 4.3-11.0 10^3/uL Red Blood Count 4.91 4.30-5.52 10^6/uL Hemoglobin 15.2 13.3-17.7 g/dL Hematocrit 44 40-54 % Mean Corpuscular Volume 90 80-99 fL Mean Corpuscular Hemoglobin 31 25-34 pg Mean Corpuscular Hemoglobin Concent 35 32-36 g/dL Red Cell Distribution Width 15.9 H 10.0-14.5 % Platelet Count 56 L 130-400 10^3/uL Mean Platelet Volume 10.1 9.0-12.2 fL Immature Granulocyte % (Auto) 0 % Neutrophils (%) (Auto) 55 42-75 % Lymphocytes (%) (Auto) 34 12-44 % Monocytes (%) (Auto) 7 0-12 % Eosinophils (%) (Auto) 2 0-10 % Basophils (%) (Auto) 2 0-10 % Neutrophils # (Auto) 3.2 1.8-7.8 10^3/uL Lymphocytes # (Auto) 2.0 1.0-4.0 10^3/uL Monocytes # (Auto) 0.4 0.0-1.0 10^3/uL Eosinophils # (Auto) 0.1 0.0-0.3 10^3/uL Basophils # (Auto) 0.1 0.0-0.1 10^3/uL Immature Granulocyte # (Auto) 0.0 0.0-0.1 10^3/uL Percent Immature Platelet Fraction 8.1 H 0.0-7.6 % Sodium Level 145 135-145 MMOL/L Potassium Level 3.5 L 3.6-5.0 MMOL/L Chloride Level 104 98-107 MMOL/L Carbon Dioxide Level 23 21-32 MMOL/L Anion Gap 18 H 5-14 MMOL/L Blood Urea Nitrogen 11 7-18 MG/DL Creatinine 0.76 0.60-1.30 MG/DL Estimat Glomerular Filtration Rate 102 BUN/Creatinine Ratio 14 Glucose Level 188 H 70-105 MG/DL Calcium Level 8.4 L 8.5-10.1 MG/DL Corrected Calcium 8.1 L 8.5-10.1 MG/DL Total Bilirubin 1.1 H 0.1-1.0 MG/DL Aspartate Amino Transf (AST/SGOT) 217 H 5-34 U/L Alanine Aminotransferase (ALT/SGPT) 127 H 0-55 U/L Alkaline Phosphatase 109 40-136 U/L Total Protein 6.9 6.4-8.2 GM/DL Albumin 4.4 3.2-4.5 GM/DL Lipase 122 H 8-78 U/L My Orders Orders - BOBBY LYNN MD Comprehensive Metabolic Panel (03/07/22 16:39) Lipase (03/07/22 16:39) Ed Iv/Invasive Line Start (03/07/22 16:39) Cbc With Automated Diff (03/07/22 16:39) Ct Abdomen/Pelvis Wo (03/07/22 16:39) Ns Iv 1000 Ml (Sodium Chloride 0.9%) (03/07/22 16:39) Ketorolac Injection (Toradol Injection) (03/07/22 16:39) Ondansetron Injection (Zofran Injectio (03/07/22 16:39) Pantoprazole Injection (Protonix Injecti (03/07/22 16:39) Vital Signs/I&O 03/07/22 03/07/22 16:09 18:28 Temp 37.2 37.2 Pulse 94 94 Resp 18 18 B/P (MAP) 133/84 (100) 133/84 Pulse Ox 92 92 O2 Delivery Room Air Room Air Capillary Refill : Blood Pressure Mean: 100 Progress Note #1: Progress Note Obtain IV to check basic labs and give IV fluid 1 L normal saline for hydration. Protonix for possible alcoholic gastritis. Zofran for nausea and vomiting. Toradol for complaint of right lower quadrant abdominal pain. Order a CT scan of his abdomen pelvis to evaluate for possible mass, colitis, diverticulitis, pyelonephritis, cystitis Progress Note #2: Progress Note Labs shows normal white blood cell count 5.8. He does have thrombocytopenia which is chronic. His chemistry panel shows elevated liver enzymes consistent with alcohol intoxication and abuse. He has negative lipase for pancreatitis. CT scan shows signs of cirrhosis and some inflammation in the lower esophagus and the hepatic flexure. Recommended possible endoscopy to evaluate for esophagitis or esophageal varices and colonoscopy to evaluate the inflammation at the hepatic flexure. Since patient reports having 4 colonoscopies recently to evaluate his right lower quadrant abdominal pain he could follow-up through the clinic about this. Encouraged to stop drinking to excess. Advised to follow-up through the clinic for continued concerns and recheck of liver enzymes Diagnostic Imaging Diagonstic Imaging: CT Plain Films/CT/US/NM/MRI: abdomen, pelvis Comments [facility]. [place], [place] NAME: SHANITA CANO [facility] REC#: [id number] PT STATUS: REG ER : 1960 PHYSICIAN: BOBBY LYNN MD ADMIT DATE: 03/07/22/ER FS Draft Date of Exam:03/07/22 CT ABDOMEN/PELVIS WO PROCEDURE: CT abdomen and pelvis without contrast. TECHNIQUE: Multiple contiguous axial images were obtained through the abdomen and pelvis without the use of intravenous contrast. Auto Exposure Controls were utilized during the CT exam to meet ALARA standards for radiation dose reduction. INDICATION: Acute on chronic right lower quadrant abdominal pain. COMPARISON: 02/07/2019. FINDINGS: There is extensive low-density throughout the liver with nodular surface contour suggestive of hepatic steatosis and possible cirrhosis. There is also mural thickening at the level of distal esophagus. This could be due to inflammation or possible varices. Note is also made of mural thickening at the level of hepatic flexure. No pancreatic, splenic or focal adrenal gland abnormality is identified. There is no evidence of renal abnormality. No renal stone or hydronephrosis is identified; however, the ureters are prominent in diameter. No ureteric stone is seen. No bladder calcification is seen although the bladder is distended. There is no free fluid in the abdomen or pelvis. The appendix is unremarkable and there is no evidence of organized fluid collection or focal inflammation. Herniation of fat is again seen within the inguinal canals, bilaterally. There may be incomplete distention of the left testis which is a change from previous study. IMPRESSION: 1. Hepatic steatosis and probable cirrhosis with mural thickening at the esophagus possibly due to inflammation or varices. Clinical correlation would be of use. 2. There is possible mural thickening at the level of the hepatic flexure. Correlation with endoscopy may be of value. 3. There is prominence of both ureters and distention of the urinary bladder; however, no obstructive calculus is identified. 4. Edema and induration in the lateral hip region subcutaneous tissues could be related to recent instrumentation and clinical correlation is suggested. Dictated on workstation # [id number] Dict: 03/07/22 1717 Trans: 03/07/22 1729 [facility] [id number] Interpreted by: JUAN JOSÉ REYES MD Electronically signed by: Reviewed: Reviewed by Me Departure Impression Primary Impression: Chronic right flank pain Additional Impressions: Chronic alcoholism Elevated liver function tests Disposition: 01 HOME, SELF-CARE Condition: Stable Departure-Patient Inst. Decision time for Depature: 17:57 Referrals: NO,LOCAL PHYSICIAN (PCP) Primary Care Physician [facility] [phone] to set up appointment for follow up Patient Instructions: Flank Pain ED, Alcohol Use Disorder ED Add. Discharge Instructions: Do not drink alcohol to excess Drink more water and electrolyte drinks. Follow up with clinic for continued pain in your right side and to recheck your liver enzymes. All discharge instructions reviewed with patient and/or family. Voiced understanding. BOBBY LYNN MD March 07, 2022 17:32
[2022-03-07 18:28] VITALS: BP 133/84
== END 2022-03-07 18:25 | disposition home or self-care (01) ==
LOC: EDUNIT# 16:03 → ER FS 16:04
DX: K70.30 Alcoholic cirrhosis of liver without ascites (principal); F10.229 Alcohol dependence with intoxication, unspecified; R74.01 Elevation of levels of liver transaminase levels; G89.29 Other chronic pain; R10.31 Right lower quadrant pain; D69.6 Thrombocytopenia, unspecified; Z87.19 Personal history of other diseases of the digestive system; Z28.310 Unvaccinated for COVID-19
CPT/HCPCS: 36415; 74176; 80053; 83690; 85025

== ENCOUNTER 2022-03-10 07:54 | Emergency (ER) | payer OTHER ==
[~2022-03-10] VITALS: Ht 180.3 cm; Wt 80.0 kg
[2022-03-10] MEDS ORDERED: ONDANSETRON 4 MG (ZOFRAN) ORAL DISSOLVE TAB PO STA (07:56)
[2022-03-10 07:58] VITALS: BP 136/97
[2022-03-10] MEDS ORDERED: FAMOTIDINE 20 MG (PEPCID) TABLET PO ONE (08:00)
--- NOTE | 2022-03-10 08:29 | ED Abdominal Pain ---
General Chief Complaint: Abdominal/GI Problems Stated Complaint: INTOXICATED Nursing Triage Note: Patient arrived to the ED by EMS for chief complaint of alcohol intoxication and RLQ abdominal pain. Patient evaluated for abdominal pain on 03/07/[address] scan negative for any acute process. Source of Information: Patient Exam Limitations: No Limitations History of Present Illness Date Seen by Provider: March 10, 2022 Time Seen by Provider: 08:00 Initial Comments Patient is a 61 year old male well known for alcohol abuse who presents with alcohol abuse. Patient has drunk multiple beverages this morning and contacted EMS. Denies fall, injury, abdominal pain, nausea and vomiting. No drugs, SI/I/hallucinations/delusions. No other acute symptoms or complaints. Timing/Duration: 4-6 Hours Severity/Quality: Mild Location: Other Radiation: Other Activities at Onset: Other Modifying Factors: Improves With Other Associated Symptoms: Other Allergies and Home Medications Allergies Coded Allergies: No Known Drug Allergies (Unverified , 09/14/20) Patient Home Medication List Home Medication List Reviewed: Yes Lisinopril (Lisinopril) 10 Mg Tablet, 10 MG PO HS, (Reported) Entered as Reported by: DANA VASQUEZ on 10/24/16 1306 Lorazepam (Ativan) 0.5 Mg Tablet, 0.5 MG PO HS PRN for ANXIETY, (Reported) Entered as Reported by: YESENIA SARAVIA on 09/14/20 1041 Metoprolol Tartrate (Metoprolol Tartrate) 25 Mg Tablet, 12.5 MG PO BID, (Reported) Entered as Reported by: DANA VASQUEZ on 10/24/16 1336 Review of Systems Review of Systems Constitutional: see HPI EENTM: See HPI Respiratory: See HPI Cardiovascular: See HPI Gastrointestinal: See HPI Genitourinary: See HPI Musculoskeletal: see HPI Skin: see HPI Psychiatric/Neurological: See HPI Endocrine: See HPI Hematologic/Lymphatic: See HPI All Other Systems Reviewed Negative Unless Noted: Yes Past Eywhczu-Djdtns-Voujay Hx Patient Social History Tobacco Use?: Yes Substance use?: No Alcohol Use?: Yes Alcohol Frequency: Daily Pt feels they are or have been: No Immunizations Up To Date Tetanus Booster (TDap): Unknown PED Vaccines UTD: No First/Initial COVID19 Vaccinat: Not Currently Vaccinated Second COVID19 Vaccination James: Not Currently Vaccinated Third COVID19 Vaccination Date: Not Currently Vaccinated Seasonal Allergies Seasonal Allergies: No Past Medical History Surgery/Hospitalization HX: Alcoholism Surgeries: Yes (colonoscopy x4 without sedation and EGD x2) Respiratory: Yes Sleep Apnea Currently Using CPAP: No (DOES NOT USE CPAP) Currently Using BIPAP: No Cardiac: Yes Angina, Hypertension Neurological: No Sexually Transmitted Disease: No HIV/AIDS: No Gastrointestinal: Yes Gastroesophageal Reflux, Polyps Musculoskeletal: Yes Chronic Back Pain Endocrine: No HEENT: No (GLASSES) Loss of Vision: Denies Hearing Impairment: Denies Cancer: No Did You Recieve Any Treatments: No Psychosocial: Yes Anxiety, PTSD, Depression Integumentary: Yes Eczema Blood Disorders: No Adverse Reaction/Blood Tranf: No (N/A) Physical Exam Vital Signs Vital Signs - First Documented 03/10/22 07:58 Temp 36.7 Pulse 98 Resp 16 B/P (MAP) 136/97 (110) Pulse Ox 94 O2 Delivery Room Air Capillary Refill : Less Than 3 Seconds Height/Weight/BMI Height: 6'0" Weight: 230lbs. 0.0oz. 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 as tested, alert, normal mood/affect, oriented x 3 Lymphatic: no adenopathy Focused Exam Sepsis Stage: Ruled Out Progress/Results/Core Measures Results/Orders My Orders Orders - LARISSA DELUCA DO Famotidine Tablet (Pepcid Tablet) (03/10/22 08:00) Ondansetron Oral Dissolve Tab (Zofran (03/10/22 07:56) Medications Given in ED Current Medications Medications Dose Ordered Sig/Regino Route Start Time Stop Time Status Last Admin Dose Admin Famotidine 20 mg ONCE ONCE PO 03/10/22 08:00 03/10/22 08:01 DC 03/10/22 08:08 20 MG Vital Signs/I&O 03/10/22 07:58 Temp 36.7 Pulse 98 Resp 16 B/P (MAP) 136/97 (110) Pulse Ox 94 O2 Delivery Room Air Blood Pressure Mean: 110 Departure Communication (Admissions) You were evaluated in the ED. Take newly prescribed medications as directed. Follow up with your PCP for re-evaluation. Return to the ED if new or worsening symptoms. Impression Primary Impression: Nausea and vomiting Disposition: 01 HOME, SELF-CARE Condition: Stable Departure-Patient Inst. Decision time for Depature: 08:30 Referrals: NO,LOCAL PHYSICIAN (PCP/Family) Primary Care Physician Patient Instructions: Nausea and Vomiting, Adult Add. Discharge Instructions: You were evaluated in the ED for alcohol abuse. Please go home and rest and eliminate alcohol consumption. Follow-up with your PCP in 2-3 days for re- evaluation. Return to the ED if new or worsening symptoms. All discharge instructions reviewed with patient and/or family. Voiced understanding. LARISSA DELUCA DO March 10, 2022 08:29
[2022-03-10] MEDS ORDERED: ONDA4TAB11 PO (08:36)
== END 2022-03-10 08:40 | disposition home or self-care (01) ==
LOC: EDUNIT# 07:54 → ER FS 07:55
DX: R11.2 Nausea with vomiting, unspecified (principal)
CPT/HCPCS: 99283

== ENCOUNTER 2022-03-14 03:16 | Emergency (ER) | payer OTHER ==
[~2022-03-14] VITALS: Ht 182.8 cm; Wt 108.8 kg
[~2022-03-14 03:16] MED LIST changes: +ONDA4TAB11 PO
[2022-03-14] MEDS ORDERED: ONDANSETRON 4 MG/2 ML (SDV) Z0FRAN IVP STA (03:42)
[2022-03-14] MEDS ORDERED: PANTOPRAZOLE 40 MG (PROTONIX) VIAL IV STA (03:42)
[2022-03-14] MEDS ORDERED: NS IV 1000 ML 1,000 ML IV STA (03:42)
[2022-03-14] MEDS ORDERED: NS 100 ML (IVPB) BAG IV ONE (03:45)
[2022-03-14] MEDS ORDERED: IOHEXOL 350 MG/ML 100 ML (OMNIPAQUE 350) VIAL IV ONE (03:45)
[2022-03-14] MEDS ORDERED: HOLD METFORMIN - RECEIVED CONTRAST 20 ML VIAL IV SCH (03:45)
[2022-03-14 03:47] LABS: BASOPHILS # (AUTO) 0.1 10^3/uL (0.0-0.1); BASOPHILS % (AUTO) 1 % (0-10); EOSINOPHILS # (AUTO) 0.2 10^3/uL (0.0-0.3); EOSINOPHILS % (AUTO) 2 % (0-10); HEMATOCRIT 31 % (40-54); HEMOGLOBIN 10.6 g/dL (13.3-17.7); LYMPHOCYTES # (AUTO) 1.6 10^3/uL (1.0-4.0); LYMPHOCYTES % (AUTO) 19 % (12-44); MEAN CORPUSCULAR HEMOGLOBIN 32 pg (25-34); MEAN CORPUSCULAR HGB CONC 34 g/dL (32-36); MEAN CORPUSCULAR VOLUME 92 fL (80-99); MEAN PLATELET VOLUME 11.2 fL (9.0-12.2); MONOCYTES # (AUTO) 0.7 10^3/uL (0.0-1.0); MONOCYTES % (AUTO) 8 % (0-12); NEUTROPHILS # (AUTO) 6.3 10^3/uL (1.8-7.8); NEUTROPHILS % (AUTO) 71 % (42-75); PLATELET COUNT 78 10^3/uL (130-400); WHITE BLOOD COUNT 8.9 10^3/uL (4.3-11.0)
--- NOTE | 2022-03-14 03:50 | ED General ---
General Chief Complaint: Abdominal/GI Problems Stated Complaint: VOMITING BLOOD Nursing Triage Note: Patient was brought in via EMS for vomiting blood. Patient states that he has been vomiting blood for the past 2 or 3 days but has been nauseated for the last couple of weeks. Patient does drink alcohol daily. Patient states that he had "1 or 2 shots" today. EMS started an 18g in the left AC with NS wide open. Patient does complain of lower right quadrant abdominal pain. Source of Information: Patient, EMS, Old Records History of Present Illness Date Seen by Provider: Mar 14, 2022 Time Seen by Provider: 03:16 Initial Comments 61-year-old male presents with complaints of vomiting blood for the last 3 days. He drinks alcohol daily. He was last seen in the emergency department a week ago on March 07. At that time he was complaining of alcohol intoxication and flank pain. His studies at that time showed elevated liver enzymes consistent with him drinking. He had not been vomiting blood at that point. Patient states that he was vomiting more blood earlier this morning and he had r eportedly tried to show pictures to his daughter in [place] because he wants his daughter to come home and be with him. He had called the hotline and then hung up when he was vomiting. He denies being suicidal or homicidal. He is tearful at times when he talks about not having any of his family nearby. Timing/Duration: 3-4 Days Severity: Severe Modifying Factors: worse with Other (Drink alcohol) Associated Systoms: No Chest Pain, No Cough, No Diaphoresis, No Fever/Chills, No Headaches; Loss of Appetite, Malaise, Nausea/Vomiting; No Rash, No Seizure, No Shortness of Air, No Syncope, No Weakness Allergies and Home Medications Allergies Coded Allergies: No Known Drug Allergies (Unverified , 09/14/20) Patient Home Medication List Home Medication List Reviewed: Yes Lisinopril (Lisinopril) 10 Mg Tablet, 10 MG PO HS, (Reported) Entered as Reported by: DANA VASQUEZ on 10/24/16 1306 Lorazepam (Ativan) 0.5 Mg Tablet, 0.5 MG PO HS PRN for ANXIETY, (Reported) Entered as Reported by: YESENIA SARAVIA on 09/14/20 1041 Metoprolol Tartrate (Metoprolol Tartrate) 25 Mg Tablet, 12.5 MG PO BID, (Reported) Entered as Reported by: DANA VASQUEZ on 10/24/16 1026 Ondansetron (Ondansetron Odt) 4 Mg Tab.rapdis, 4 MG PO Q6H Prescribed by: LARISSA DELUCA on 03/10/22 0836 Review of Systems Review of Systems Constitutional: No chills, No diaphoresis, No fever; malaise EENTM: no symptoms reported Respiratory: no symptoms reported Cardiovascular: no symptoms reported Gastrointestinal: see HPI, abdominal pain (Right-sided abdominal pain mostly in the right lower quadrant but some in the right upper quadrant with palpation), hematemesis, loss of appetite, melena, nausea, vomiting Genitourinary: no symptoms reported Musculoskeletal: no symptoms reported Skin: change in color (Multiple bruises and scratches on body. 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: [employer] Seasonal Allergies Seasonal Allergies: No Past Medical History Surgery/Hospitalization HX: Alcoholism Surgeries: Yes (colonoscopy x4 without sedation and EGD x2) Respiratory: Yes Sleep Apnea Currently Using CPAP: No (DOES NOT USE CPAP) Currently Using BIPAP: No Cardiac: Yes Angina, Hypertension Neurological: No Sexually Transmitted Disease: No HIV/AIDS: No Gastrointestinal: Yes Gastroesophageal Reflux, Polyps Musculoskeletal: Yes Chronic Back Pain Endocrine: No HEENT: No (GLASSES) Loss of Vision: Denies Hearing Impairment: Denies Cancer: No Did You Recieve Any Treatments: No Psychosocial: Yes Anxiety, PTSD, Depression Integumentary: Yes Eczema Blood Disorders: No Adverse Reaction/Blood Tranf: No (N/A) Physical Exam Vital Signs Vital Signs - First Documented 03/14/22 03:23 Temp 36.8 Pulse 112 Resp 18 B/P (MAP) 113/79 (90) Pulse Ox 98 O2 Delivery Room Air Capillary Refill : Less Than 3 Seconds Height, Weight, BMI Height: 6'0" Weight: 230lbs. 0.0oz. 104.963963bv; 32.00 BMI Method:Stated General Appearance: No Apparent Distress, WD/WN HEENT: PERRL/EOMI, Pharynx Normal Neck: Full Range of Motion, Normal Inspection, Non Tender, Supple Respiratory: Chest Non Tender, Lungs Clear, Normal Breath Sounds, No Accessory Muscle Use, No Respiratory Distress Cardiovascular: Regular Rate, Rhythm, Normal Peripheral Pulses Gastrointestinal: Normal Bowel Sounds, No Pulsatile Mass, Soft; No Distended, No Guarding, No Rebound; Tenderness (Right upper quadrant along the liver edge and he has a palpable liver edge. 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 Norm as Tested Skin: Warm/Dry, Ecchymosis (Large bruise to the left side of his hip), Pallor Progress/Results/Core Measures Suspected Sepsis SIRS Temperature: Pulse: 112 Respiratory Rate: 18 Laboratory Tests 03/14/22 03:29: White Blood Count 8.9 Blood Pressure 113 /79 Mean: 90 Laboratory Tests 03/14/22 03:29: Creatinine 0.78, INR Comment 1.5H, Platelet Count 78L, Total Bilirubin 2.0H Results/Orders Lab Results Laboratory Tests Test 03/14/22 03:29 03/14/22 04:26 Range/Units White Blood Count 8.9 4.3-11.0 10^3/uL Red Blood Count 3.34 L 4.30-5.52 10^6/uL Hemoglobin 10.6 #L 13.3-17.7 g/dL Hematocrit 31 L 40-54 % Mean Corpuscular Volume 92 80-99 fL Mean Corpuscular Hemoglobin 32 25-34 pg Mean Corpuscular Hemoglobin Concent 34 32-36 g/dL Red Cell Distribution Width 15.8 H 10.0-14.5 % Platelet Count 78 L 130-400 10^3/uL Mean Platelet Volume 11.2 9.0-12.2 fL Immature Granulocyte % (Auto) 0 % Neutrophils (%) (Auto) 71 42-75 % Lymphocytes (%) (Auto) 19 12-44 % Monocytes (%) (Auto) 8 0-12 % Eosinophils (%) (Auto) 2 0-10 % Basophils (%) (Auto) 1 0-10 % Neutrophils # (Auto) 6.3 1.8-7.8 10^3/uL Lymphocytes # (Auto) 1.6 1.0-4.0 10^3/uL Monocytes # (Auto) 0.7 0.0-1.0 10^3/uL Eosinophils # (Auto) 0.2 0.0-0.3 10^3/uL Basophils # (Auto) 0.1 0.0-0.1 10^3/uL Immature Granulocyte # (Auto) 0.0 0.0-0.1 10^3/uL Percent Immature Platelet Fraction 9.1 H 0.0-7.6 % Prothrombin Time 18.1 H 12.2-14.7 SEC INR Comment 1.5 H 0.8-1.4 Activated Partial Thromboplast Time 30 24-35 SEC Sodium Level 137 135-145 MMOL/L Potassium Level 3.8 3.6-5.0 MMOL/L Chloride Level 99 98-107 MMOL/L Carbon Dioxide Level 20 L 21-32 MMOL/L Anion Gap 18 H 5-14 MMOL/L Blood Urea Nitrogen 18 7-18 MG/DL Creatinine 0.78 0.60-1.30 MG/DL Estimat Glomerular Filtration Rate 101 BUN/Creatinine Ratio 23 Glucose Level 167 H 70-105 MG/DL Calcium Level 8.2 L 8.5-10.1 MG/DL Corrected Calcium 8.7 8.5-10.1 MG/DL Total Bilirubin 2.0 H 0.1-1.0 MG/DL Aspartate Amino Transf (AST/SGOT) 139 H 5-34 U/L Alanine Aminotransferase (ALT/SGPT) 83 H 0-55 U/L Alkaline Phosphatase 92 40-136 U/L Total Protein 5.2 L 6.4-8.2 GM/DL Albumin 3.4 3.2-4.5 GM/DL Salicylates Level < 0.3 L 5.0-20.0 MG/DL Acetaminophen Level < 10 L 10-30 UG/ML Serum Alcohol 198 H <10 MG/DL Urine Color YELLOW Urine Clarity CLEAR Urine pH 7.0 5-9 Urine Specific [place] 1.015 L 1.016-1.022 Urine Protein TRACE H NEGATIVE Urine Glucose (UA) NEGATIVE NEGATIVE Urine Ketones TRACE H NEGATIVE Urine Nitrite NEGATIVE NEGATIVE Urine Bilirubin 1+ H NEGATIVE Urine Urobilinogen 1.0 < = 1.0 MG/DL Urine Leukocyte Esterase NEGATIVE NEGATIVE Urine RBC (Auto) 1+ H NEGATIVE Urine RBC 0-2 /HPF Urine WBC NONE /HPF Urine Squamous Epithelial Cells NONE /HPF Urine Crystals NONE /LPF Urine Bacteria NEGATIVE /HPF Urine Casts NONE /LPF Urine Mucus SMALL H /LPF Urine Culture Indicated NO Urine Opiates Screen NEGATIVE NEGATIVE Urine Oxycodone Screen NEGATIVE NEGATIVE Urine Methadone Screen NEGATIVE NEGATIVE Urine Propoxyphene Screen NEGATIVE NEGATIVE Urine Barbiturates Screen NEGATIVE NEGATIVE Ur Tricyclic Antidepressants Screen NEGATIVE NEGATIVE Urine Phencyclidine Screen NEGATIVE NEGATIVE Urine Amphetamines Screen NEGATIVE NEGATIVE Urine Methamphetamines Screen NEGATIVE NEGATIVE Urine Benzodiazepines Screen NEGATIVE NEGATIVE Urine Cocaine Screen NEGATIVE NEGATIVE Urine Cannabinoids Screen NEGATIVE NEGATIVE My Orders Orders - BOBBY LYNN MD Ua Culture If Indicated (03/14/22 03:40) Cbc With Automated Diff (03/14/22 03:40) Comprehensive Metabolic Panel (03/14/22 03:40) Alcohol (03/14/22 03:40) Drug Screen Stat (Urine) (03/14/22 03:40) Acetaminophen (03/14/22 03:40) Salicylate (03/14/22 03:40) Ekg Tracing (03/14/22 03:40) Ed Iv/Invasive Line Start (03/14/22 03:40) Monitor-Rhythm Ecg Trace Only (03/14/22 03:40) Protime With Inr (03/14/22 03:40) Partial Thromboplastin Time (03/14/22 03:40) Ct Abdomen/Pelvis W (03/14/22 03:40) Ns Iv 1000 Ml (Sodium Chloride 0.9%) (03/14/22 03:42) Pantoprazole Injection (Protonix Injecti (03/14/22 03:42) Ondansetron Injection (Zofran Injectio (03/14/22 03:42) Iohexol Injection (Omnipaque 350 Mg/Ml 1 (03/14/22 03:45) Received Contrast (Hold Metformin- Contr (03/14/22 03:45) Ns (Ivpb) (Sodium Chloride 0.9% Ivpb Bag (03/14/22 03:45) Pantoprazole Injection (Protonix Injecti (03/14/22 03:57) Medications Given in ED Current Medications Medications Dose Ordered Sig/Regino Route Start Time Stop Time Status Last Admin Dose Admin Iohexol 100 ml ONCE ONCE IV 03/14/22 03:45 03/14/22 03:46 DC 03/14/22 04:06 100 ML Sodium Chloride 100 ml ONCE ONCE IV 03/14/22 03:45 03/14/22 03:46 DC 03/14/22 04:05 100 ML Vital Signs/I&O 03/14/22 03:23 Temp 36.8 Pulse 112 Resp 18 B/P (MAP) 113/79 (90) Pulse Ox 98 O2 Delivery Room Air Capillary Refill : Less Than 3 Seconds Blood Pressure Mean: 90 Progress Note #1: Progress Note Obtain labs and CT scan of his abdomen pelvis. Give IV fluids for hydration, Zofran for nausea and vomiting, Protonix 80 mg IV for GI bleed. From an admit standpoint patient stated that he would be willing to be admitted locally rather than going through the [place]. Progress Note #2: Progress Note 0348 CBC shows that he has dropped 5 grams of Hgb in 1 week. March 07 he had Hgb 15.4 and today his Hgb is 10.6. He has low platelets at 78 as well. Elevated INR of 1.5. Progress Note #3: Time: 04:00 Progress Note Check with local surgeon to see if they do Esophageal Banding for varices. Informed they do not do that here so he would need a higher level of care. [id number] call placed to the [facility] access center to initiate transfer to [facility]. I spoke with TRAV Cruz, and she took the basic information on the patient. She will call back with the critical care provider for report. [id number] spoke with nurse practitioner Hudson and she accepted the patient on behalf of Dr. Jose More. Patient will be going to [facility]. It this time he is remaining hemodynamically stable. However with him having large amount of hematemesis when he sat up to try and urinate and go to the CT scan will contact air ambulance helicopter about possible transfer. 0504 [facility] was reported to be closest flight and they were 45 minutes ETA to [place]. Will cancel transfer by air and transport emergent by ground as he could get to [facility] about the same time as the helicopter might arrive in [place]. ECG Initial ECG Impression Date: Mar 14, 2022 Initial ECG Impression Time: 03:49 Initial ECG Rate: 101 Initial ECG Rhythm: S.Tach Initial ECG Comparisson: Unchanged Comment Sinus tachycardia with a heart rate of 101 bpm. VA interval [address] elevation. QT interval 361 ms with a QTc interval 419 ms. Overall appears similar to prior tracings. Diagnostic Imaging Diagonstic Imaging: CT Plain Films/CT/US/NM/MRI: abdomen, pelvis Comments Persistent ascending colon thickening could be secondary to incidental underdistention but cannot exclude mass. Cirrhotic liver with esophageal varices better seen on imaging today. New small amount of ascites present. Read by radiologist Dr. Kelsi Malin MD at 0 [phone] and faxed at [phone] Reviewed: Reviewed Night Hawk Study, Reviewed by Me Critical Care Note Critical Care Total Time (minutes) 60 minutes Progress 60 minutes of critical care time was spent in direct care of the patient. This time excludes separately billable procedures. Time was spent obtaining history from patient and old records, ordering tests and reviewing results, ordering interventions and reviewing response, discussion with consultants, documentation in the chart. Patient was at risk of cardiac compromise and multiorgan system failure due to acute GI bleed with anemia. He required my direct constant supervision and care to help manage his condition. Departure Impression Primary Impression: Gastrointestinal hemorrhage with hematemesis Additional Impressions: History of alcoholism Elevated liver enzymes Anemia associated with acute blood loss Disposition: 02 XFER SHT-TRM HOSP Condition: Critical Transfer Transfer Reason: Exceeds level of care (GI care for esophageal banding, ICU) Time Spoke to Accepting Phy: 04:31 Transfer Progress Notes d/w ROSAURA Treviño for critical care at [facility]. She accepted the patient on behalf of Dr. Jose More. The transfer center will call back with a bed assignment Transfer Facility: [facility] Method of Transfer: EMS Departure-Patient Inst. Referrals: NO,LOCAL PHYSICIAN (PCP/Family) Primary Care Physician BOBBY LYNN MD Mar 14, 2022 03:50
[2022-03-14 03:53] LABS: INR 1.5 (0.8-1.4); PROTHROMBIN TIME PATIENT 18.1 SEC (12.2-14.7)
[2022-03-14] MEDS ORDERED: PANTOPRAZOLE 40 MG (PROTONIX) VIAL ONE (03:57)
[2022-03-14 04:05] LABS: BUN/CREATININE RATIO 23; CALCIUM 8.2 MG/DL (8.5-10.1); CARBON DIOXIDE 20 MMOL/L (21-32); CHLORIDE 99 MMOL/L (98-107); CREATININE SERUM 0.78 MG/DL (0.60-1.30); GFR ESTIMATED 101; GLUCOSE 167 MG/DL (70-105); POTASSIUM 3.8 MMOL/L (3.6-5.0); SODIUM 137 MMOL/L (135-145)
[2022-03-14 04:06] LABS: ACETAMINOPHEN < 10 UG/ML (10-30); ALANINE AMINOTRANSFERASE 83 U/L (0-55); ALBUMIN 3.4 GM/DL (3.2-4.5); ALKALINE PHOSPHATASE 92 U/L (40-136); SALICYLATE < 0.3 MG/DL (5.0-20.0); TOTAL PROTEIN 5.2 GM/DL (6.4-8.2)
[2022-03-14 04:33] LABS: CLARITY,URINE CLEAR; COLOR,URINE YELLOW; GLUCOSE, URINE (UA) NEGATIVE (NEGATIVE); KETONES,URINE TRACE (NEGATIVE); LEUKOCYTE ESTERASE ,URINE NEGATIVE (NEGATIVE); NITRITE,URINE NEGATIVE (NEGATIVE); PROTEIN,URINE TRACE (NEGATIVE)
[2022-03-14 04:44] LABS: AMPHETAMINE SCREEN, URINE NEGATIVE (NEGATIVE); BARBITURATE SCREEN URINE NEGATIVE (NEGATIVE); BENZODIAZEPINES SCREEN URINE NEGATIVE (NEGATIVE); CANNABINOID SCREEN, URINE NEGATIVE (NEGATIVE); COCAINE SCREEN URINE NEGATIVE (NEGATIVE); METHADONE STAT NEGATIVE (NEGATIVE); OPIATE SCREEN URINE NEGATIVE (NEGATIVE); OXYCODONE STAT NEGATIVE (NEGATIVE); PROPOXYPHENE STAT NEGATIVE (NEGATIVE); TRICYCLIC ANTIDEPRESSANTS SCRE NEGATIVE (NEGATIVE)
[2022-03-14 04:45] LABS: BACTERIA,URINE NEGATIVE /HPF; RBC,URINE 0-2 /HPF
[2022-03-14 04:47] LABS: BILIRUBIN,URINE 1+ (NEGATIVE)
[2022-03-14 05:05] VITALS: BP 115/59
[2022-03-14] MEDS ORDERED: LACTATED RINGERS 1,000 ML IV STA (05:05)
--- NOTE | 2022-03-14 06:50 | Diagnostic Imaging Report ---
PROCEDURE: CT abdomen and pelvis with contrast. TECHNIQUE: Multiple contiguous axial images were obtained through the abdomen and pelvis after administration of intravenous contrast. Auto Exposure Controls were utilized during the CT exam to meet ALARA standards for radiation dose reduction. All CT scans use one or more of the following dose optimizing techniques: automated exposure control, MA and/or KvP adjustment based on patient size and exam type or iterative reconstruction. INDICATION: Vomiting blood, abdominal pain. COMPARISON: 03/07/2022. FINDINGS: The visualized lung bases are clear. Small hiatal hernia. The liver appears diffusely nodular and diffusely hypodense. Multifocal regions of retraction and probable fibrosis involving the liver again seen. The main portal vein is patent. The spleen is borderline enlarged without focal splenic mass. The adrenal glands are unremarkable. The pancreas is unremarkable. The gallbladder is predominantly decompressed. The kidneys are unremarkable without evidence of hydronephrosis. No hydroureter with the ureters appearing decreased in size since the prior exam. Mild vascular calcifications without aneurysmal dilatation of the abdominal aorta. Small fat-containing umbilical hernia. Mild mural thickening of the urinary bladder. Prostate gland is minimally enlarged. Moderate sized fat-containing bilateral inguinal hernias with small amount of fluid within the right inguinal hernia. Subcutaneous fat stranding about the left hip is again identified. Scattered regions of mural thickening are identified involving the large and small bowel. This is greatest involving the ascending colon and hepatic flexure as well as the duodenum. No bowel obstruction or pneumatosis. No significant adenopathy or free air. Trace free fluid. Benign hemangioma identified within the lumbar spine. Grade 1 anterolisthesis of L4 on L5 secondary to pars intra-articularis defects of L4. Scattered osseous degenerative changes without acute osseous abnormality. IMPRESSION: Scattered regions of mural thickening involving the large and small bowel with associated adjacent inflammatory stranding, greatest involving the ascending colon and duodenum. Findings are favored to relate to underlying enterocolitis, possibility of infectious, inflammatory, or even ischemic etiology. A mass lesion involving the ascending colon and hepatic flexure cannot be excluded. Cirrhotic morphology of the liver with associated mild varices. Tiny hiatal hernia. Mild mural thickening of the urinary bladder, potentially related to chronic urinary bladder outlet obstruction versus cystitis. Correlation with urinary analysis is recommended. Additional findings, as described above. Agree with the preliminary report that there is an infectious or inflammatory process associated with the colon, though I feel this is both a small and large bowel process. Report faxed to TRAV Rodriguez [facility] at [phone] at 12:54 PM 03/14/2022/cb Dictated by: Dictated on workstation # [id number]
== END 2022-03-14 05:18 | disposition short-term general hospital (02) ==
LOC: EDUNIT# 03:16 → ER FS 03:23
DX: K92.0 Hematemesis (principal); D62 Acute posthemorrhagic anemia; R74.01 Elevation of levels of liver transaminase levels; Z28.310 Unvaccinated for COVID-19
CPT/HCPCS: 36415; 74177; 80053; 80306; 80320; 80329; 81000; 85025; 85610; 85730; 93005; 93041; Q9967